=== PATIENT | female | born 1930 | race Caucasian/White ===

== ENCOUNTER 2016-03-11 13:35 | Inpatient (IN) | payer OTHER ==
[~2016-03-11] VITALS: Ht 149.9 cm; Wt 60.0 kg
[~2016-03-11 13:35] MED LIST: ACID REDUCER 1150 MG PO; ACID REDUCER150 MG PO; ADVAIR HFA120 INHAL1 IH; ALBUTEROL SULF8.5 GM IH; AMLODIPINE BESY10 MG PO; AMLODIPINE BESYL5 MG PO; ANTIFUNGAL15 G1 TP; ARICEPT5 MG PO; ASPIR 8181 M1 PO; ATENOLOL50 M1 PO; ATENOLOL50 MG PO; ATORVASTATIN CA40 MG PO; AVENTYL,PAMELOR25 MG PO; Aspirin E.C. PO; BAYER CHILDREN'81 MG PO; BISAC-EVAC10 MG PR; BISACODYL5 MG PO; CIPRO250 MG PO; CYMBALTA30 MG PO; CYMBALTA60 MG PO; DIOVAN HCT 3201 EAC1 PO; DIOVAN320 MG PO; DOCUSATE SODIU100 MG PO; DONEPEZIL HCL5 MG PO; ERGOCALCIF50000 UNIT PO; FENOFIBRATE160 M1 PO; FISH OIL 1,2001 EAC4 PO; GABAPENTIN300 MG PO; GLIPIZIDE10 MG PO; GLIPIZIDE5 M1 PO; GRALISE300 MG PO; GYNE-LOTRIMIN-745 GM VG; HEPARIN SO5000 UNITS SC; HYDROCODON-ACE1 EAC7 PO; KEFLEX500 MG PO; LEVEMIR FL100 UNIT/1 SC; LEVEMIR FL100 UNITS/ SC; LIDODERM 5% P1 PATCH PO; LIDODERM 5% P1 PATCH TD; LIPITOR40 MG PO; LO-DOSE ASPIRIN81 M1 PO; LOFIBRA,TRIGLI160 MG PO; LOSARTAN POTAS100 MG PO; MAG-AL PLUS SUS30 ML PO; MEDROL DOSEPAK4 MG PO; METFORMIN HCL500 MG PO; MILK OF MAGNESI10 ML PO; MONTELUKAST SOD10 MG PO; NORTRIPTYLINE H25 MG PO; NORVASC10 MG PO; NOVOLOG PE100 UNITS/ SC; OMEGA 3-6-91200 MG PO; OMNICEF300 MG PO; PREDNISONE10 MG PO; PROAIR HFA8.5 GM IH; PROVENTIL,2.5 MG/3 M IH; RANITIDINE HCL150 M1 PO; RANITIDINE HCL150 MG PO; SENNA8.6 MG PO; SINGULAIR10 MG PO; SPIRIVA1 INHALATI IH; ST. JOSEPH ASPI81 MG PO; THEO-DUR,THEOC200 MG PO; THEOPHYLLINE A200 M1 PO; TRADJENTA5 MG PO; TYLENOL EXTRA500 MG PO; VITAMIN D250000 UNIT PO; VYTORIN 10-801 EACH PO; VYTORIN 10/81 TABLET PO
[2016-03-11 17:18] LABS: EOSINOPHIL (%) 0 % (0-5); HEMATOCRIT 31.8 % (36.0-46.0); IMMATURE GRANULOCYTE (%) 0.3 % (0.0-0.7); IMMATURE GRANULOCYTE COUNT 0.2 K/uL; MCHC 33.3 G/DL (30.0-36.0); MCV 87.1 FL (83-99); MEAN PLAT.VOLUME 11.9 uM^3 (9.5-12.4); MONOCYTE (%) 14.6 % (3-12); MONOCYTE COUNT 0.9 K/uL (0-0.8); NEUTROPHIL (%) 68.2 % (45-76); NEUTROPHIL COUNT 4.1 K/uL (1.8-6.4); PLATELET COUNT 179 K/uL (156-360); RBC DIS.WIDTH-CV 13.3 % (11.8-14.6); RBC DIS.WIDTH-SD 41.1 % (39-53); RED BLOOD COUNT 3.65 M/uL (3.80-5.20)
[2016-03-11 17:29] LABS: CHLORIDE 112 mEq/L (99-109); POTASSIUM 4.5 mEq/L (3.7-5.4); SODIUM 140 mEq/L (136-147)
[2016-03-11 17:31] LABS: GLUCOSE 105 mg/dL (70-99)
[2016-03-11 17:32] LABS: ANION GAP 13 MEQ/L (2-14)
[2016-03-11 17:33] LABS: TOTAL BILIRUBIN 0.3 mg/dL (0.0-1.0)
[2016-03-11 17:34] LABS: ALKALINE PHOSPHATASE 65 IU/L (3-129)
[2016-03-11 17:35] LABS: GFR ESTIMATE (CALCULATED) 12 mL/min/
[2016-03-11 17:36] LABS: UREA NITROGEN (BUN) 40 mg/dL (9-23)
[2016-03-11 17:43] LABS: TROP-I INTERPRETATION NEGATIVE; TROPONIN-I 0.02 ng/mL (0.0-0.30)
[2016-03-11] MEDS ORDERED: NORVASC10 MG PO (19:18)
[2016-03-11] MEDS ORDERED: ZANTAC300 MG PO (19:21)
[2016-03-11] MEDS ORDERED: THEOPHYLLINE400 MG PO (19:21)
[2016-03-11] MEDS ORDERED: VALIUM2 MG PO (19:23)
[2016-03-11] MEDS ORDERED: TESSALON PERLE100 MG PO (19:24)
[2016-03-11] MEDS ORDERED: LEVAQUIN500 MG PO (19:24)
[2016-03-11] MEDS ORDERED: BYSTOLIC10 MG PO (19:25)
[2016-03-11] MEDS ORDERED: CARDURA2 M1 PO (19:25)
[2016-03-11] MEDS ORDERED: PRILOSEC20 MG PO (19:25)
[2016-03-11] MEDS ORDERED: PROVENTIL,2.5 MG/3 M IH (19:26)
[2016-03-11] MEDS ORDERED: VOLTAREN 1% GE100 GM TP (19:26)
[2016-03-11] MEDS ORDERED: MEDROL DOSEPAK4 MG PO (19:30)
[2016-03-11 21:54] LABS: POINT-OF-CARE METER ID UU13113700
[2016-03-11 22:04] VITALS: BP 175/77
[2016-03-11 22:07] VITALS: BP 175/77
[2016-03-12] VITALS (7 sets, daily range): BP systolic 141–177; BP diastolic 63–87
[2016-03-12 04:36] LABS: ADD MIUA? YES; BILIRUBIN NEGATIVE; BLOOD SMALL; COLOR YELLOW ((YELLOW)); GLUCOSE (STRIP) NEGATIVE; KETONES NEGATIVE; LEUKOCYTES NEGATIVE; NITRITE NEGATIVE; PH, URINE 6.5 (5-8); PROTEIN (STRIP) >=300; SPECIFIC GRAVITY 1.011 (1.000-1.030); UROBILINOGEN 0.2 MG/DL (0.2-1.0)
[2016-03-12 05:08] LABS: BACTERIA NONE SEEN; CASTS NONE SEEN /LPF; CRYSTALS NONE SEEN; EPITHELIAL CELLS RARE; MUCUS NONE SEEN; RED BLOOD CELLS RARE /HPF (0-5); UCUL ADDED? NO; WHITE BLOOD CELLS RARE /HPF (0-5)
[2016-03-12 10:20] LABS: ANION GAP 15 MEQ/L (2-14); CHLORIDE 113 MEQ/L (99-109); GFR ESTIMATE (CALCULATED) 15 mL/min/; GLUCOSE 113 mg/dL (70-99); POTASSIUM 4.3 MEQ/L (3.7-5.4); SAMPLE HEMOLYSIS CHECK 0; SAMPLE ICTERIC CHECK 0; SAMPLE LIPEMIA CHECK 0; SODIUM 145 MEQ/L (136-147); UREA NITROGEN (BUN) 35 mg/dL (9-23)
[2016-03-12 23:28] LABS: INFLUENZA A VIRAL ANTIGEN NEGATIVE; INFLUENZA B VIRAL ANTIGEN NEGATIVE
[2016-03-13 03:32] VITALS: BP 174/74
[2016-03-13 06:55] LABS: POINT-OF-CARE METER ID UU13113700
[2016-03-13 07:32] VITALS: BP 154/69
[2016-03-13 12:13] VITALS: BP 142/96
[2016-03-13 15:59] VITALS: BP 125/87
[2016-03-13 20:12] VITALS: BP 166/73
[2016-03-13 21:29] LABS: POINT-OF-CARE METER ID UU13113831
[2016-03-14 00:46] VITALS: BP 171/72
[2016-03-14 04:38] VITALS: BP 174/80
[2016-03-14 06:29] LABS: EOSINOPHIL (%) 0 % (0-5); HEMATOCRIT 28.2 % (36.0-46.0); IMMATURE GRANULOCYTE (%) 0.7 % (0.0-0.7); LYMPHOCYTE COUNT 0.7 K/uL (1.0-2.8); MCH 29.2 PG (29.0-34.0); MCHC 33.7 G/DL (30.0-36.0); MCV 86.8 FL (83-99); MEAN PLAT.VOLUME 11.8 uM^3 (9.5-12.4); MONOCYTE (%) 4.3 % (3-12); MONOCYTE COUNT 0.2 K/uL (0-0.8); NEUTROPHIL (%) 79.7 % (45-76); NEUTROPHIL COUNT 3.5 K/uL (1.8-6.4); PLATELET COUNT 143 K/uL (156-360); RBC DIS.WIDTH-CV 13.5 % (11.8-14.6); RBC DIS.WIDTH-SD 43.2 % (39-53); RED BLOOD COUNT 3.25 M/uL (3.80-5.20); WHITE BLOOD COUNT 4.4 K/uL (4.1-10.2)
[2016-03-14 06:57] LABS: ANION GAP 9 MEQ/L (2-14); CHLORIDE 111 MEQ/L (99-109); GFR ESTIMATE (CALCULATED) 13 mL/min/; GLUCOSE 189 mg/dL (70-99); POTASSIUM 4.4 MEQ/L (3.7-5.4); SAMPLE HEMOLYSIS CHECK 0; SAMPLE ICTERIC CHECK 0; SAMPLE LIPEMIA CHECK 0; SODIUM 138 MEQ/L (136-147); UREA NITROGEN (BUN) 48 mg/dL (9-23)
[2016-03-14 07:30] LABS: POINT-OF-CARE METER ID UU14162513
[2016-03-14 08:17] VITALS: BP 132/100
[2016-03-14 12:43] VITALS: BP 158/72
[2016-03-14 12:45] LABS: POINT-OF-CARE METER ID UU14162513
[2016-03-14 16:06] VITALS: BP 118/75
[2016-03-14 17:30] LABS: POINT-OF-CARE METER ID UU14162513
[2016-03-14 20:00] VITALS: BP 138/61
[2016-03-14 22:07] LABS: POINT-OF-CARE METER ID UU13113700
[2016-03-15] VITALS (7 sets, daily range): BP systolic 122–174; BP diastolic 63–80
[2016-03-15 06:13] LABS: ANION GAP 10 MEQ/L (2-14); CHLORIDE 109 MEQ/L (99-109); GFR ESTIMATE (CALCULATED) 12 mL/min/; GLUCOSE 211 mg/dL (70-99); POTASSIUM 4.5 MEQ/L (3.7-5.4); SAMPLE HEMOLYSIS CHECK 0; SAMPLE ICTERIC CHECK 0; SAMPLE LIPEMIA CHECK 0; SODIUM 136 MEQ/L (136-147); UREA NITROGEN (BUN) 56 mg/dL (9-23)
[2016-03-15 07:34] LABS: POINT-OF-CARE METER ID UU13113831
[2016-03-15 12:17] LABS: POINT-OF-CARE METER ID UU13113831
[2016-03-15 12:34] LABS: POINT-OF-CARE METER ID UU14162513
[2016-03-15 17:54] LABS: POINT-OF-CARE METER ID UU14162513
[2016-03-15 22:16] LABS: POINT-OF-CARE METER ID UU13113700
[2016-03-16] VITALS: BP 156/69
[2016-03-16 05:00] VITALS: BP 170/81
[2016-03-16 06:45] LABS: ANION GAP 8 MEQ/L (2-14); CHLORIDE 111 MEQ/L (99-109); GFR ESTIMATE (CALCULATED) 13 mL/min/; GLUCOSE 197 mg/dL (70-99); POTASSIUM 4.6 MEQ/L (3.7-5.4); SAMPLE HEMOLYSIS CHECK 0; SAMPLE ICTERIC CHECK 0; SAMPLE LIPEMIA CHECK 0; SODIUM 136 MEQ/L (136-147); UREA NITROGEN (BUN) 65 mg/dL (9-23)
[2016-03-16 07:36] LABS: POINT-OF-CARE METER ID UU13113831
[2016-03-16 08:20] VITALS: BP 158/70
[2016-03-16 12:52] LABS: POINT-OF-CARE METER ID UU14162513
[2016-03-16 13:09] VITALS: BP 158/73; BP 170/72
[2016-03-16 16:42] VITALS: BP 156/100
[2016-03-16 17:38] LABS: POINT-OF-CARE METER ID UU13113831
[2016-03-16 20:12] VITALS: BP 160/74
[2016-03-16 21:17] LABS: POINT-OF-CARE METER ID UU14162513
[2016-03-17] VITALS: BP 153/67
[2016-03-17 03:50] VITALS: BP 144/80
[2016-03-17 06:41] LABS: ANION GAP 11 MEQ/L (2-14); CHLORIDE 111 MEQ/L (99-109); GFR ESTIMATE (CALCULATED) 14 mL/min/; GLUCOSE 246 mg/dL (70-99); POTASSIUM 4.9 MEQ/L (3.7-5.4); SAMPLE HEMOLYSIS CHECK 0; SAMPLE ICTERIC CHECK 0; SAMPLE LIPEMIA CHECK 0; SODIUM 138 MEQ/L (136-147); UREA NITROGEN (BUN) 68 mg/dL (9-23)
[2016-03-17 08:14] VITALS: BP 151/55
[2016-03-17 11:41] VITALS: BP 145/66
[2016-03-17] MEDS ORDERED: PREDNISONE10 MG PO ×2 (13:08)
[2016-03-17] MEDS ORDERED: CEFTIN500 MG PO (13:09)
[2016-03-17 15:30] VITALS: BP 133/63
[2016-03-17 17:44] LABS: POINT-OF-CARE METER ID UU14162513
== END 2016-03-17 18:27 | disposition home or self-care (01) | DRG 683 ==
LOC: EME 13:35 → EDOF 19:15 → 5WEST 19:15 → EDOF 19:15 → 5WEST 21:05
PROVIDERS: Emergency Medicine; Hospitalist; Internal Medicine; Physician Assistant
DX: N17.9 Acute kidney failure, unspecified (principal); J20.9 Acute bronchitis, unspecified; J44.0 Chronic obstructive pulmonary disease with (acute) lower respiratory infection; J44.1 Chronic obstructive pulmonary disease with (acute) exacerbation; I27.2 Other secondary pulmonary hypertension; E11.22 Type 2 diabetes mellitus with diabetic chronic kidney disease; E86.0 Dehydration; R56.9 Unspecified convulsions; I12.9 Hypertensive chronic kidney disease with stage 1 through stage 4 chronic kidney disease, or unspecified chronic kidney disease; D63.1 Anemia in chronic kidney disease; N18.5 Chronic kidney disease, stage 5; I25.10 Atherosclerotic heart disease of native coronary artery without angina pectoris; E78.5 Hyperlipidemia, unspecified; F03.90 Unspecified dementia, unspecified severity, without behavioral disturbance, psychotic disturbance, mood disturbance, and anxiety; G47.30 Sleep apnea, unspecified; E66.9 Obesity, unspecified; K21.9 Gastro-esophageal reflux disease without esophagitis; I34.0 Nonrheumatic mitral (valve) insufficiency; Z86.73 Personal history of transient ischemic attack (TIA), and cerebral infarction without residual deficits; Z90.49 Acquired absence of other specified parts of digestive tract; Z95.2 Presence of prosthetic heart valve; Z95.1 Presence of aortocoronary bypass graft; I25.2 Old myocardial infarction
CPT/HCPCS: 71010; 71250; 74000; 80048; 80053; 80069; 80198; 81003; 82948; 83605; 84484; 85025; 87502; 94640; 94640 76; 94664; 94760; 97530 GP; 99202; 99281; 99284; G0378; G8978 GP CJ; G8979 GP CI; G8987 GO CJ; G8988 CI; G8989 GO CI; J0696; J1644; J1815; J2060; J2920; J7030; J7050; J7509; J7512

== ENCOUNTER 2016-05-30 05:39 | Day surgery (SDC) | payer OTHER ==
[~2016-05-30] VITALS: Ht 149.9 cm; Wt 55.8 kg
[~2016-05-30 05:39] MED LIST changes: +BYSTOLIC10 MG PO; +CARDURA2 M1 PO; +CEFTIN500 MG PO; +FUROSEMIDE40 MG PO; +LEVAQUIN500 MG PO; +PRILOSEC20 MG PO; +TESSALON PERLE100 MG PO; +THEOPHYLLINE400 MG PO; +VALIUM2 MG PO; +VOLTAREN 1% GE100 GM TP; +ZANTAC300 MG PO
[2016-05-30 06:00] VITALS: BP 180/63
[2016-05-30 06:42] LABS: HEMATOCRIT 35.4 % (36.0-46.0); MCH 28.4 PG (29.0-34.0); MCHC 31.6 G/DL (30.0-36.0); MCV 89.8 FL (83-99); PLATELET COUNT 200 K/uL (156-360); RBC DIS.WIDTH-CV 13.9 % (11.8-14.6); RBC DIS.WIDTH-SD 45.5 % (39-53); RED BLOOD COUNT 3.94 M/uL (3.80-5.20); WHITE BLOOD COUNT 8.4 K/uL (4.1-10.2)
[2016-05-30 07:07] LABS: ANION GAP 12 MEQ/L (2-14); CHLORIDE 106 MEQ/L (99-109); SAMPLE HEMOLYSIS CHECK 1; SAMPLE ICTERIC CHECK 0; SAMPLE LIPEMIA CHECK 0; SODIUM 142 MEQ/L (136-147)
[2016-05-30 07:13] LABS: GFR ESTIMATE (CALCULATED) 16 mL/min/; GLUCOSE 130 mg/dL (70-99); UREA NITROGEN (BUN) 29 mg/dL (9-23)
[2016-05-30 09:24] LABS: POINT-OF-CARE USER ID 515036437
[2016-05-30 09:50] VITALS: BP 152/61
[2016-05-30 11:00] VITALS: BP 132/70
== END 2016-05-30 11:20 | disposition home or self-care (01) ==
LOC: SDC 05:39
PROVIDERS: Surgery
PROC: 03180JD Bypass Left Brachial Artery to Upper Arm Vein with Synthetic Substitute, Open Approach (ICD-10-PCS; principal; 2016-05-30)
DX: I12.0 Hypertensive chronic kidney disease with stage 5 chronic kidney disease or end stage renal disease (principal); N18.6 End stage renal disease; Z99.2 Dependence on renal dialysis; J45.909 Unspecified asthma, uncomplicated; M19.90 Unspecified osteoarthritis, unspecified site; J44.9 Chronic obstructive pulmonary disease, unspecified; E78.5 Hyperlipidemia, unspecified; Z86.73 Personal history of transient ischemic attack (TIA), and cerebral infarction without residual deficits; Z95.2 Presence of prosthetic heart valve; Z98.1 Arthrodesis status; Z83.3 Family history of diabetes mellitus; Z82.49 Family history of ischemic heart disease and other diseases of the circulatory system; Z87.891 Personal history of nicotine dependence
CPT/HCPCS: 80048; 82948; 85027; 93005; J0131; J0690; J1644; J2405; J2720

== ENCOUNTER 2016-06-08 21:00 | Inpatient (IN) | payer OTHER ==
[~2016-06-08] VITALS: Ht 147.3 cm; Wt 45.3 kg
[2016-06-08 21:57] LABS: HEMATOCRIT 31.7 % (36.0-46.0); MCH 28.9 PG (29.0-34.0); MCHC 31.5 G/DL (30.0-36.0); MCV 91.6 FL (83-99); MEAN PLAT.VOLUME 11.5 uM^3 (9.5-12.4); PLATELET COUNT 230 K/uL (156-360); RBC DIS.WIDTH-CV 14.1 % (11.8-14.6); RBC DIS.WIDTH-SD 47.8 % (39-53); RED BLOOD COUNT 3.46 M/uL (3.80-5.20)
[2016-06-08 22:08] LABS: CHLORIDE 111 mEq/L (99-109); POTASSIUM 5.9 mEq/L (3.7-5.4); SODIUM 140 mEq/L (136-147)
[2016-06-08 22:09] LABS: INTER. NORMALIZED RATIO 1.1; PROTHROMBIN TIME 10.7 (9.2-11.2); PTT 26.3 (25-32)
[2016-06-08 22:10] LABS: GLUCOSE 99 mg/dL (70-99)
[2016-06-08 22:11] LABS: ANION GAP 10 MEQ/L (2-14)
[2016-06-08 22:14] LABS: GFR ESTIMATE (CALCULATED) 13 mL/min/
[2016-06-08 22:15] LABS: UREA NITROGEN (BUN) 46 mg/dL (9-23)
[2016-06-08 22:18] LABS: TROP-I INTERPRETATION NEGATIVE; TROPONIN-I 0.02 ng/mL (0.0-0.30)
[2016-06-08] MEDS ORDERED: HYDROCODON-ACE1 EAC7 PO (23:19)
[2016-06-09] VITALS (7 sets, daily range): BP systolic 121–194; BP diastolic 54–84
[2016-06-09 07:26] LABS: MCH 28.6 PG (29.0-34.0); MCHC 31.1 G/DL (30.0-36.0); MCV 92.1 FL (83-99); MEAN PLAT.VOLUME 11.6 uM^3 (9.5-12.4); PLATELET COUNT 206 K/uL (156-360); RBC DIS.WIDTH-CV 14.3 % (11.8-14.6); RBC DIS.WIDTH-SD 48.2 % (39-53); RED BLOOD COUNT 3.04 M/uL (3.80-5.20); WHITE BLOOD COUNT 8.5 K/uL (4.1-10.2)
[2016-06-09 07:31] LABS: ANION GAP 10 MEQ/L (2-14); CHLORIDE 111 MEQ/L (99-109); GFR ESTIMATE (CALCULATED) 13 mL/min/; GLUCOSE 103 mg/dL (70-99); POTASSIUM 5.4 MEQ/L (3.7-5.4); SAMPLE HEMOLYSIS CHECK 0; SAMPLE ICTERIC CHECK 0; SAMPLE LIPEMIA CHECK 0; SODIUM 142 MEQ/L (136-147); UREA NITROGEN (BUN) 45 mg/dL (9-23)
[2016-06-09 07:32] LABS: TROP-I INTERPRETATION NEGATIVE; TROPONIN-I 0.02 ng/mL (0.0-0.30)
[2016-06-09 10:40] LABS: IRON 46 MCG/DL (35-150)
[2016-06-09 10:42] LABS: IMM.RETIC FRACTION 14.2 % (3-19); RETIC HGB EQUIVALENT 32.7 (28-36); RETICULOCYTE COUNT 1.5 % (0.5-1.8)
[2016-06-09 11:20] LABS: FERRITIN 77 NG/ML (10-291)
[2016-06-09 12:43] LABS: TROP-I INTERPRETATION NEGATIVE; TROPONIN-I 0.02 ng/mL (0.0-0.30)
[2016-06-09 14:02] LABS: BASE EXCESS -2.4 mEq/L (-3 to +3); BICARBONATE 21.1 mEq/L (22-26); CARBOXY HGB 1.6 % (0-5); COMMENTS - BLOOD GASES A+C+; METHEMOGLOBIN 1.6 % (0-1.5); PCO2 31 mm Hg (35-45); PO2 75 mm Hg (80-100); SITE RR; pH 7.44 (7.35-7.45)
[2016-06-09 14:03] LABS: DEVICE NC; O2 FLOW 2 L/MIN; TOTAL RESP RATE 26 resp/min
[2016-06-09 21:46] LABS: POINT-OF-CARE METER ID UU13113698
[2016-06-10 00:53] VITALS: BP 165/75
[2016-06-10 04:39] VITALS: BP 162/88
[2016-06-10 06:06] LABS: EOSINOPHIL (%) 0.2 % (0-5); HEMATOCRIT 29.6 % (36.0-46.0); IMMATURE GRANULOCYTE (%) 0.5 % (0.0-0.7); INSTRUMENT ABS NEUTROPHIL CT 5.5 K/uL; LYMPHOCYTE COUNT 0.8 K/uL (1.0-2.8); MCH 28.5 PG (29.0-34.0); MCHC 31.8 G/DL (30.0-36.0); MCV 89.7 FL (83-99); MEAN PLAT.VOLUME 11.6 uM^3 (9.5-12.4); MONOCYTE (%) 3.1 % (3-12); MONOCYTE COUNT 0.2 K/uL (0-0.8); NEUTROPHIL (%) 84.3 % (45-76); NEUTROPHIL COUNT 5.5 K/uL (1.8-6.4); PLATELET COUNT 199 K/uL (156-360); RBC DIS.WIDTH-CV 13.9 % (11.8-14.6); RBC DIS.WIDTH-SD 45.4 % (39-53); WHITE BLOOD COUNT 6.5 K/uL (4.1-10.2)
[2016-06-10 06:58] LABS: ANION GAP 12 MEQ/L (2-14); CHLORIDE 106 MEQ/L (99-109); GFR ESTIMATE (CALCULATED) 11 mL/min/; POTASSIUM 5.3 MEQ/L (3.7-5.4); SAMPLE HEMOLYSIS CHECK 0; SAMPLE ICTERIC CHECK 0; SAMPLE LIPEMIA CHECK 0; SODIUM 139 MEQ/L (136-147); THEOPHYLLINE 5.9 MCG/ML (10-20); UREA NITROGEN (BUN) 52 mg/dL (9-23)
[2016-06-10 07:00] LABS: GLUCOSE 177 mg/dL (70-99)
[2016-06-10 07:47] VITALS: BP 139/61
[2016-06-10 11:41] VITALS: BP 159/70
[2016-06-10 15:47] VITALS: BP 155/73
[2016-06-10 19:50] VITALS: BP 166/70
[2016-06-10 21:59] LABS: POINT-OF-CARE METER ID UU13113698
[2016-06-11] VITALS (7 sets, daily range): BP systolic 128–155; BP diastolic 59–75
[2016-06-11 07:38] LABS: ANION GAP 15 MEQ/L (2-14); CHLORIDE 103 MEQ/L (99-109); GFR ESTIMATE (CALCULATED) 9 mL/min/; GLUCOSE 165 mg/dL (70-99); POTASSIUM 5.2 MEQ/L (3.7-5.4); SAMPLE HEMOLYSIS CHECK 0; SAMPLE ICTERIC CHECK 0; SAMPLE LIPEMIA CHECK 0; SODIUM 137 MEQ/L (136-147); UREA NITROGEN (BUN) 69 mg/dL (9-23)
[2016-06-11 07:45] LABS: HEMATOCRIT 29.3 % (36.0-46.0); MCH 28.6 PG (29.0-34.0); MCHC 31.7 G/DL (30.0-36.0); MCV 90.2 FL (83-99); MEAN PLAT.VOLUME 11.5 uM^3 (9.5-12.4); PLATELET COUNT 220 K/uL (156-360); RBC DIS.WIDTH-SD 46.1 % (39-53); RED BLOOD COUNT 3.25 M/uL (3.80-5.20)
[2016-06-11 07:51] LABS: WHITE BLOOD COUNT 9.8 K/uL (4.1-10.2)
[2016-06-11 08:13] LABS: POINT-OF-CARE METER ID UU13113807
[2016-06-11 13:16] LABS: POINT-OF-CARE METER ID UU13113807
[2016-06-11 16:45] LABS: POINT-OF-CARE METER ID UU13113698
[2016-06-11 21:52] LABS: POINT-OF-CARE METER ID UU13113807
[2016-06-12 03:30] VITALS: BP 142/75
[2016-06-12 06:17] LABS: HEMATOCRIT 27.4 % (36.0-46.0); MCH 28.7 PG (29.0-34.0); MCHC 32.1 G/DL (30.0-36.0); MCV 89.3 FL (83-99); MEAN PLAT.VOLUME 11.6 uM^3 (9.5-12.4); PLATELET COUNT 203 K/uL (156-360); RBC DIS.WIDTH-SD 45.3 % (39-53); RED BLOOD COUNT 3.07 M/uL (3.80-5.20); WHITE BLOOD COUNT 12.7 K/uL (4.1-10.2)
[2016-06-12 06:43] LABS: ANION GAP 14 MEQ/L (2-14); CHLORIDE 104 MEQ/L (99-109); GFR ESTIMATE (CALCULATED) 8 mL/min/; GLUCOSE 163 mg/dL (70-99); POTASSIUM 5.1 MEQ/L (3.7-5.4); SAMPLE HEMOLYSIS CHECK 0; SAMPLE ICTERIC CHECK 0; SAMPLE LIPEMIA CHECK 0; SODIUM 138 MEQ/L (136-147); UREA NITROGEN (BUN) 81 mg/dL (9-23)
[2016-06-12 08:15] VITALS: BP 136/62
[2016-06-12 08:44] LABS: POINT-OF-CARE METER ID UU13113698
[2016-06-12 11:51] VITALS: BP 130/60
[2016-06-12 12:33] LABS: POINT-OF-CARE METER ID UU13113698
[2016-06-12 15:44] VITALS: BP 149/68
[2016-06-12 16:37] LABS: POINT-OF-CARE METER ID UU13113698
[2016-06-12 19:52] VITALS: BP 127/61
[2016-06-12 21:36] LABS: POINT-OF-CARE METER ID UU14149396
[2016-06-13 00:57] VITALS: BP 148/67
[2016-06-13 04:53] VITALS: BP 146/65
[2016-06-13 07:10] LABS: EOSINOPHIL (%) 0 % (0-5); HEMATOCRIT 25.7 % (36.0-46.0); IMMATURE GRANULOCYTE (%) 2.8 % (0.0-0.7); IMMATURE GRANULOCYTE COUNT 0.2 K/uL; INSTRUMENT ABS NEUTROPHIL CT 4.8 K/uL; LYMPHOCYTE COUNT 0.8 K/uL (1.0-2.8); MCH 29.1 PG (29.0-34.0); MCHC 32.7 G/DL (30.0-36.0); MCV 88.9 FL (83-99); MEAN PLAT.VOLUME 11.5 uM^3 (9.5-12.4); MONOCYTE (%) 11.7 % (3-12); MONOCYTE COUNT 0.8 K/uL (0-0.8); NEUTROPHIL (%) 72.9 % (45-76); NEUTROPHIL COUNT 4.8 K/uL (1.8-6.4); PLATELET COUNT 178 K/uL (156-360); RBC DIS.WIDTH-CV 13.8 % (11.8-14.6); RBC DIS.WIDTH-SD 44.9 % (39-53); RED BLOOD COUNT 2.89 M/uL (3.80-5.20)
[2016-06-13 07:11] LABS: WHITE BLOOD COUNT 6.5 K/uL (4.1-10.2)
[2016-06-13 07:16] LABS: ANION GAP 14 MEQ/L (2-14); CHLORIDE 104 MEQ/L (99-109); GFR ESTIMATE (CALCULATED) 9 mL/min/; GLUCOSE 203 mg/dL (70-99); POTASSIUM 4.4 MEQ/L (3.7-5.4); SAMPLE HEMOLYSIS CHECK 0; SAMPLE ICTERIC CHECK 0; SAMPLE LIPEMIA CHECK 0; SODIUM 137 MEQ/L (136-147); UREA NITROGEN (BUN) 87 mg/dL (9-23)
[2016-06-13 08:32] VITALS: BP 130/58
[2016-06-13] MEDS ORDERED: NABI650T PO (09:17)
[2016-06-13] MEDS ORDERED: JANUVIA25 MG PO ×2 (09:17→09:25)
[2016-06-13] MEDS ORDERED: PREDNISONE20 MG PO (09:25)
[2016-06-13 12:00] LABS: POINT-OF-CARE METER ID UU13113698
[2016-06-13 12:12] VITALS: BP 136/61
== END 2016-06-13 14:45 | disposition home health service (06) | DRG 291 ==
LOC: EME 21:00 → EDOF 06-09 00:44 → 5WEST 06-09 01:35 → 4SOUTH 06-09 10:25 → 5WEST 06-09 10:25 → 4SOUTH 06-09 19:25
PROVIDERS: Emergency Medicine; Family Medicine; Hospitalist; Internal Medicine; Internal Medicine Nephrology; Nurse Practitioner Family
DX: I13.2 Hypertensive heart and chronic kidney disease with heart failure and with stage 5 chronic kidney disease, or end stage renal disease (principal); I50.33 Acute on chronic diastolic (congestive) heart failure; E11.22 Type 2 diabetes mellitus with diabetic chronic kidney disease; E11.21 Type 2 diabetes mellitus with diabetic nephropathy; N18.5 Chronic kidney disease, stage 5; N17.9 Acute kidney failure, unspecified; J44.1 Chronic obstructive pulmonary disease with (acute) exacerbation; J44.0 Chronic obstructive pulmonary disease with (acute) lower respiratory infection; J20.9 Acute bronchitis, unspecified; E87.2 Acidosis; N25.81 Secondary hyperparathyroidism of renal origin; E78.5 Hyperlipidemia, unspecified; I25.10 Atherosclerotic heart disease of native coronary artery without angina pectoris; I27.2 Other secondary pulmonary hypertension; G47.33 Obstructive sleep apnea (adult) (pediatric); I36.1 Nonrheumatic tricuspid (valve) insufficiency; I34.0 Nonrheumatic mitral (valve) insufficiency; E87.5 Hyperkalemia; D63.1 Anemia in chronic kidney disease; E55.9 Vitamin D deficiency, unspecified; F03.90 Unspecified dementia, unspecified severity, without behavioral disturbance, psychotic disturbance, mood disturbance, and anxiety; I25.2 Old myocardial infarction; Z86.73 Personal history of transient ischemic attack (TIA), and cerebral infarction without residual deficits; Z95.2 Presence of prosthetic heart valve; Z95.1 Presence of aortocoronary bypass graft; Z79.82 Long term (current) use of aspirin
CPT/HCPCS: 36600; 71010; 80048; 80069; 80198; 82272; 82607; 82728; 82746; 82803; 82948; 83540; 83605; 83880; 84466; 84484; 85025; 85027; 85045; 85610; 85730; 87040; 93005; 93306; 94640; 94640 76; 94799; 99202; 99281; 99285; J0881; J1644; J1815; J1940; J2920; J2930; J7512

== ENCOUNTER 2016-06-19 11:33 | Inpatient (IN) | payer OTHER ==
[~2016-06-19] VITALS: Ht 162.6 cm; Wt 65.5 kg
[~2016-06-19 11:33] MED LIST changes: +JANUVIA25 MG PO; +NABI650T PO; +PREDNISONE20 MG PO
[2016-06-19 12:50] LABS: EOSINOPHIL (%) 3.4 % (0-5); EOSINOPHIL COUNT 0.5 K/uL (0-0.3); HEMATOCRIT 31.1 % (36.0-46.0); IMMATURE GRANULOCYTE (%) 3.2 % (0.0-0.7); IMMATURE GRANULOCYTE COUNT 0.4 K/uL; INSTRUMENT ABS NEUTROPHIL CT 9.5 K/uL; MCH 29.3 PG (29.0-34.0); MCHC 32.2 G/DL (30.0-36.0); MCV 91.2 FL (83-99); MEAN PLAT.VOLUME 11.7 uM^3 (9.5-12.4); MONOCYTE (%) 9.4 % (3-12); MONOCYTE COUNT 1.3 K/uL (0-0.8); NEUTROPHIL (%) 69.6 % (45-76); NEUTROPHIL COUNT 9.5 K/uL (1.8-6.4); PLATELET COUNT 260 K/uL (156-360); RBC DIS.WIDTH-CV 14.9 % (11.8-14.6); RBC DIS.WIDTH-SD 47.4 % (39-53); RED BLOOD COUNT 3.41 M/uL (3.80-5.20); WHITE BLOOD COUNT 13.7 K/uL (4.1-10.2)
[2016-06-19 12:56] LABS: CHLORIDE 106 mEq/L (99-109); POTASSIUM 5.5 mEq/L (3.7-5.4); SODIUM 135 mEq/L (136-147)
[2016-06-19 12:58] LABS: GLUCOSE 121 mg/dL (70-99); INTER. NORMALIZED RATIO 1.2; PROTHROMBIN TIME 12.3 (9.2-11.2); PTT 23.9 (25-32)
[2016-06-19 13:00] LABS: ANION GAP 9 MEQ/L (2-14); TOTAL BILIRUBIN 0.4 mg/dL (0.0-1.0)
[2016-06-19 13:02] LABS: ALKALINE PHOSPHATASE 60 IU/L (3-129); GFR ESTIMATE (CALCULATED) 11 mL/min/
[2016-06-19 13:03] LABS: UREA NITROGEN (BUN) 96 mg/dL (9-23)
[2016-06-19 13:04] LABS: TROP-I INTERPRETATION NEGATIVE; TROPONIN-I 0.04 ng/mL (0.0-0.30)
[2016-06-19] MEDS ORDERED: LOSARTAN POTAS100 MG PO (13:45)
[2016-06-19 18:06] LABS: HEMATOCRIT 28.6 % (36.0-46.0); MCHC 32.9 G/DL (30.0-36.0); MCV 88.3 FL (83-99); MEAN PLAT.VOLUME 11.3 uM^3 (9.5-12.4); PLATELET COUNT 234 K/uL (156-360); RBC DIS.WIDTH-SD 46.5 % (39-53); RED BLOOD COUNT 3.24 M/uL (3.80-5.20); WHITE BLOOD COUNT 12.4 K/uL (4.1-10.2)
[2016-06-19 18:17] LABS: ANION GAP 9 MEQ/L (2-14); CHLORIDE 107 MEQ/L (99-109); SAMPLE HEMOLYSIS CHECK 0; SAMPLE ICTERIC CHECK 0; SAMPLE LIPEMIA CHECK 0; SODIUM 139 MEQ/L (136-147)
[2016-06-19 18:19] LABS: POTASSIUM 4.2 MEQ/L (3.7-5.4)
[2016-06-19 18:20] VITALS: BP 166/54
[2016-06-19 18:23] LABS: GLUCOSE 131 mg/dL (70-99); UREA NITROGEN (BUN) 56 mg/dL (9-23)
[2016-06-19 18:24] LABS: GFR ESTIMATE (CALCULATED) 20 mL/min/
[2016-06-19 18:25] LABS: TROP-I INTERPRETATION NEGATIVE; TROPONIN-I 0.05 ng/mL (0.0-0.30)
[2016-06-19 19:00] VITALS: BP 166/54
[2016-06-19 22:06] LABS: POINT-OF-CARE METER ID UU14174216
[2016-06-19 23:47] LABS: ADD MIUA? YES; BILIRUBIN NEGATIVE; BLOOD NEGATIVE; COLOR YELLOW ((YELLOW)); GLUCOSE (STRIP) 50; KETONES NEGATIVE; LEUKOCYTES LARGE; NITRITE NEGATIVE; PROTEIN (STRIP) >=500; SPECIFIC GRAVITY 1.009 (1.000-1.030); UROBILINOGEN 0.2 MG/DL (0.2-1.0)
[2016-06-19 23:55] VITALS: BP 138/63
[2016-06-19 23:59] LABS: BACTERIA RARE /HPF; EPITHELIAL CELLS NONE SEEN /HPF; HYALINE CASTS 0-5 /LPF; MUCUS TRACE /LPF; RED BLOOD CELLS 0-5 /HPF (0-5); UCUL ADDED? YES; WHITE BLOOD CELLS TNTC /HPF (0-5); WHITE BLOOD CELLS CLUMP MOD /HPF (0-5)
[2016-06-20 04:00] VITALS: BP 123/56
[2016-06-20 07:16] LABS: ANION GAP 10 MEQ/L (2-14); CHLORIDE 107 MEQ/L (99-109); GLUCOSE 133 mg/dL (70-99); POTASSIUM 4.8 MEQ/L (3.7-5.4); SAMPLE HEMOLYSIS CHECK 0; SAMPLE ICTERIC CHECK 0; SAMPLE LIPEMIA CHECK 0; SODIUM 139 MEQ/L (136-147); UREA NITROGEN (BUN) 67 mg/dL (9-23)
[2016-06-20 07:17] LABS: GFR ESTIMATE (CALCULATED) 14 mL/min/
[2016-06-20 07:18] LABS: EOSINOPHIL (%) 3.6 % (0-5); EOSINOPHIL COUNT 0.4 K/uL (0-0.3); HEMATOCRIT 27.6 % (36.0-46.0); IMMATURE GRANULOCYTE (%) 1.6 % (0.0-0.7); IMMATURE GRANULOCYTE COUNT 0.2 K/uL; INSTRUMENT ABS NEUTROPHIL CT 7.1 K/uL; LYMPHOCYTE COUNT 1.4 K/uL (1.0-2.8); MCH 29.1 PG (29.0-34.0); MCHC 31.5 G/DL (30.0-36.0); MEAN PLAT.VOLUME 11.6 uM^3 (9.5-12.4); MONOCYTE (%) 9.2 % (3-12); MONOCYTE COUNT 0.9 K/uL (0-0.8); NEUTROPHIL (%) 71.5 % (45-76); NEUTROPHIL COUNT 7.1 K/uL (1.8-6.4); PLATELET COUNT 196 K/uL (156-360); RBC DIS.WIDTH-CV 15.7 % (11.8-14.6); RBC DIS.WIDTH-SD 49.3 % (39-53); RED BLOOD COUNT 2.99 M/uL (3.80-5.20)
[2016-06-20 07:19] LABS: MCV 92.3 FL (83-99)
[2016-06-20 09:00] VITALS: BP 139/66
[2016-06-20 10:40] LABS: AHBS INDEX 0; HEPATITIS B SURFACE ANTIBODY Nonreactive; HPCA INDEX 0.05
[2016-06-20 10:42] LABS: ANTI-HEPATITIS A VIRUS (IGM) Nonreactive; ANTI-HEPATITIS B CORE (IGM) Nonreactive; HAV INDEX 0.16; HBC IgM INDEX 0.08
[2016-06-20 10:43] LABS: HBSG INDEX 0.22
[2016-06-20 10:44] LABS: ANTI-HEPATITIS B CORE (IGM) Nonreactive; HBC IgM INDEX 0.07
[2016-06-20 10:48] LABS: ADD MIUA? YES; BILIRUBIN NEGATIVE; BLOOD NEGATIVE; COLOR YELLOW ((YELLOW)); GLUCOSE (STRIP) 50; KETONES NEGATIVE; LEUKOCYTES LARGE; NITRITE NEGATIVE; PROTEIN (STRIP) 100; SPECIFIC GRAVITY 1.017 (1.000-1.030); UROBILINOGEN 0.2 MG/DL (0.2-1.0)
[2016-06-20 10:55] LABS: IRON 29 MCG/DL (35-150)
[2016-06-20 11:13] LABS: WHITE BLOOD CELLS TNTC /HPF (0-5)
[2016-06-20 15:01] VITALS: BP 131/61
[2016-06-20 20:00] VITALS: BP 136/69
[2016-06-20 21:39] LABS: POINT-OF-CARE METER ID UU14174216; POINT-OF-CARE USER ID ENVMNS
[2016-06-20 23:46] VITALS: BP 133/86
[2016-06-21 04:00] VITALS: BP 124/66
[2016-06-21 06:50] LABS: EOSINOPHIL (%) 3.6 % (0-5); EOSINOPHIL COUNT 0.4 K/uL (0-0.3); HEMATOCRIT 28.3 % (36.0-46.0); IMMATURE GRANULOCYTE (%) 1.6 % (0.0-0.7); IMMATURE GRANULOCYTE COUNT 0.2 K/uL; INSTRUMENT ABS NEUTROPHIL CT 7.5 K/uL; LYMPHOCYTE COUNT 1.6 K/uL (1.0-2.8); MCH 29.3 PG (29.0-34.0); MCHC 31.8 G/DL (30.0-36.0); MCV 92.2 FL (83-99); MEAN PLAT.VOLUME 12.1 uM^3 (9.5-12.4); MONOCYTE (%) 10.1 % (3-12); MONOCYTE COUNT 1.1 K/uL (0-0.8); NEUTROPHIL (%) 69.8 % (45-76); NEUTROPHIL COUNT 7.5 K/uL (1.8-6.4); NRBC (%) 0.2 /100 WBC (0-0); PLATELET COUNT 171 K/uL (156-360); RBC DIS.WIDTH-CV 15.9 % (11.8-14.6); RBC DIS.WIDTH-SD 50.4 % (39-53); RED BLOOD COUNT 3.07 M/uL (3.80-5.20); WHITE BLOOD COUNT 10.7 K/uL (4.1-10.2)
[2016-06-21 07:06] LABS: ANION GAP 9 MEQ/L (2-14); CHLORIDE 101 MEQ/L (99-109); GFR ESTIMATE (CALCULATED) 16 mL/min/; GLUCOSE 135 mg/dL (70-99); POTASSIUM 4.1 MEQ/L (3.7-5.4); SAMPLE HEMOLYSIS CHECK 0; SAMPLE ICTERIC CHECK 0; SAMPLE LIPEMIA CHECK 0; SODIUM 137 MEQ/L (136-147); UREA NITROGEN (BUN) 38 mg/dL (9-23)
[2016-06-21 07:51] LABS: POINT-OF-CARE METER ID UU14174216
[2016-06-21 11:54] LABS: POINT-OF-CARE METER ID UU14174216
[2016-06-21 13:20] LABS: BASE EXCESS 4.9 mEq/L (-3 to +3); BICARBONATE 27.6 mEq/L (22-26); CARBOXY HGB 1.7 % (0-5); COMMENTS - BLOOD GASES A+C+; METHEMOGLOBIN 1.7 % (0-1.5); PCO2 33 mm Hg (35-45); PO2 70 mm Hg (80-100); SITE RRA; pH 7.53 (7.35-7.45)
[2016-06-21 13:21] LABS: DEVICE NC; FI02 21 %; TOTAL RESP RATE 16 resp/min
[2016-06-21 15:44] VITALS: BP 161/71
[2016-06-21 20:00] VITALS: BP 171/72
[2016-06-21 22:18] LABS: POINT-OF-CARE METER ID UU14174216; POINT-OF-CARE USER ID ENVMNS
[2016-06-21 23:55] VITALS: BP 171/65
[2016-06-22 04:00] VITALS: BP 147/68
[2016-06-22 06:15] LABS: MCH 29.4 PG (29.0-34.0); MCHC 31.8 G/DL (30.0-36.0); MCV 92.4 FL (83-99); MEAN PLAT.VOLUME 11.8 uM^3 (9.5-12.4); PLATELET COUNT 150 K/uL (156-360); RBC DIS.WIDTH-CV 16.1 % (11.8-14.6); RBC DIS.WIDTH-SD 51.8 % (39-53); RED BLOOD COUNT 3.03 M/uL (3.80-5.20); WHITE BLOOD COUNT 12.5 K/uL (4.1-10.2)
[2016-06-22 07:03] LABS: ANION GAP 11 MEQ/L (2-14); CHLORIDE 105 MEQ/L (99-109); GFR ESTIMATE (CALCULATED) 14 mL/min/; GLUCOSE 127 mg/dL (70-99); POTASSIUM 3.8 MEQ/L (3.7-5.4); SAMPLE HEMOLYSIS CHECK 0; SAMPLE ICTERIC CHECK 0; SAMPLE LIPEMIA CHECK 0; SODIUM 140 MEQ/L (136-147); UREA NITROGEN (BUN) 40 mg/dL (9-23)
[2016-06-22 08:09] VITALS: BP 152/60
[2016-06-22 11:46] VITALS: BP 157/50
[2016-06-22 15:00] VITALS: BP 158/82
[2016-06-22 16:30] LABS: POINT-OF-CARE METER ID UU14174216
[2016-06-22 19:23] VITALS: BP 146/65
[2016-06-22 20:29] LABS: POINT-OF-CARE METER ID UU14174216
[2016-06-22 22:31] VITALS: BP 152/67
[2016-06-23 03:13] VITALS: BP 148/88
[2016-06-23 07:28] VITALS: BP 129/73
[2016-06-23 08:08] LABS: POINT-OF-CARE USER ID NUTSLF44
[2016-06-23 09:52] LABS: ANION GAP 12 MEQ/L (2-14); CHLORIDE 105 MEQ/L (99-109); GFR ESTIMATE (CALCULATED) 14 mL/min/; GLUCOSE 183 mg/dL (70-99); POTASSIUM 3.9 MEQ/L (3.7-5.4); SAMPLE HEMOLYSIS CHECK 0; SAMPLE ICTERIC CHECK 0; SAMPLE LIPEMIA CHECK 0; SODIUM 138 MEQ/L (136-147); UREA NITROGEN (BUN) 41 mg/dL (9-23)
[2016-06-23 12:19] LABS: POINT-OF-CARE METER ID UU14174216
[2016-06-23 12:26] VITALS: BP 145/57
[2016-06-23 16:42] LABS: POINT-OF-CARE USER ID NUTSLF44
[2016-06-23 17:30] VITALS: BP 144/60
[2016-06-23 19:16] LABS: HEMATOCRIT 27.7 % (36.0-46.0); MCH 29.3 PG (29.0-34.0); MCHC 30.3 G/DL (30.0-36.0); MCV 96.5 FL (83-99); MEAN PLAT.VOLUME 12.4 uM^3 (9.5-12.4); PLATELET COUNT 132 K/uL (156-360); RBC DIS.WIDTH-CV 16.8 % (11.8-14.6); RBC DIS.WIDTH-SD 57.5 % (39-53); RED BLOOD COUNT 2.87 M/uL (3.80-5.20); WHITE BLOOD COUNT 11.1 K/uL (4.1-10.2)
[2016-06-23 20:27] VITALS: BP 142/91
[2016-06-23 21:17] LABS: POINT-OF-CARE METER ID UU14174216
[2016-06-24 00:08] VITALS: BP 139/63
[2016-06-24 04:08] VITALS: BP 139/62
[2016-06-24 06:35] LABS: EOSINOPHIL (%) 3.6 % (0-5); EOSINOPHIL COUNT 0.4 K/uL (0-0.3); HEMATOCRIT 26.8 % (36.0-46.0); IMMATURE GRANULOCYTE COUNT 0.1 K/uL; INSTRUMENT ABS NEUTROPHIL CT 7.3 K/uL; LYMPHOCYTE COUNT 1.6 K/uL (1.0-2.8); MCH 29.4 PG (29.0-34.0); MCHC 31.7 G/DL (30.0-36.0); MCV 92.7 FL (83-99); MEAN PLAT.VOLUME 11.9 uM^3 (9.5-12.4); MONOCYTE (%) 10.5 % (3-12); MONOCYTE COUNT 1.1 K/uL (0-0.8); NEUTROPHIL (%) 69.7 % (45-76); NEUTROPHIL COUNT 7.3 K/uL (1.8-6.4); NRBC (%) 0.2 /100 WBC (0-0); PLATELET COUNT 132 K/uL (156-360); RBC DIS.WIDTH-CV 16.6 % (11.8-14.6); RBC DIS.WIDTH-SD 53.4 % (39-53); RED BLOOD COUNT 2.89 M/uL (3.80-5.20); WHITE BLOOD COUNT 10.4 K/uL (4.1-10.2)
[2016-06-24 06:48] LABS: ANION GAP 12 MEQ/L (2-14); CHLORIDE 102 MEQ/L (99-109); GFR ESTIMATE (CALCULATED) 16 mL/min/; GLUCOSE 125 mg/dL (70-99); POTASSIUM 3.7 MEQ/L (3.7-5.4); SAMPLE HEMOLYSIS CHECK 0; SAMPLE ICTERIC CHECK 0; SAMPLE LIPEMIA CHECK 0; SODIUM 140 MEQ/L (136-147); UREA NITROGEN (BUN) 23 mg/dL (9-23)
[2016-06-24 07:30] VITALS: BP 133/63
[2016-06-24 08:21] LABS: POINT-OF-CARE USER ID NUTSLF44
[2016-06-24 10:52] LABS: MAGNESIUM 1.9 mg/dl (1.3-2.7)
[2016-06-24 11:30] VITALS: BP 141/67
[2016-06-24 11:39] LABS: POINT-OF-CARE USER ID NUTSLF44
[2016-06-24 16:40] LABS: POINT-OF-CARE USER ID NUTSLF44
[2016-06-24 16:57] VITALS: BP 142/64
[2016-06-24 19:26] VITALS: BP 163/66
[2016-06-25 00:24] VITALS: BP 124/61
[2016-06-25 04:51] VITALS: BP 142/78
[2016-06-25 08:12] LABS: POINT-OF-CARE METER ID UU13113781; POINT-OF-CARE USER ID NUTSLF44
[2016-06-25 09:00] LABS: MCH 29.9 PG (29.0-34.0); MCHC 31.9 G/DL (30.0-36.0); MCV 93.5 FL (83-99); MEAN PLAT.VOLUME 11.8 uM^3 (9.5-12.4); PLATELET COUNT 123 K/uL (156-360); RBC DIS.WIDTH-CV 16.6 % (11.8-14.6); RBC DIS.WIDTH-SD 55.1 % (39-53); RED BLOOD COUNT 2.78 M/uL (3.80-5.20); WHITE BLOOD COUNT 11.7 K/uL (4.1-10.2)
[2016-06-25 09:28] LABS: ANION GAP 14 MEQ/L (2-14); CHLORIDE 102 MEQ/L (99-109); GFR ESTIMATE (CALCULATED) 13 mL/min/; POTASSIUM 3.7 MEQ/L (3.7-5.4); SAMPLE HEMOLYSIS CHECK 0; SAMPLE ICTERIC CHECK 0; SAMPLE LIPEMIA CHECK 0; SODIUM 138 MEQ/L (136-147); UREA NITROGEN (BUN) 27 mg/dL (9-23)
[2016-06-25 09:29] LABS: GLUCOSE 227 mg/dL (70-99)
[2016-06-25] MEDS ORDERED: CEFDINIR300 MG PO ×2 (12:24→14:43)
[2016-06-25 13:19] VITALS: BP 144/64
== END 2016-06-25 14:53 | disposition home health service (06) | DRG 682 ==
LOC: EME 11:33 → EDOF 13:45 → 4EAST 13:45
PROVIDERS: Emergency Medicine; Hospitalist; Internal Medicine; Internal Medicine Nephrology; Student in an Organized Health Care Education/Training Program
PROC: 5A1D60Z (ICD-10-PCS; principal; 2016-06-22)
DX: I12.0 Hypertensive chronic kidney disease with stage 5 chronic kidney disease or end stage renal disease (principal); N18.6 End stage renal disease; E11.22 Type 2 diabetes mellitus with diabetic chronic kidney disease; E87.5 Hyperkalemia; I48.0 Paroxysmal atrial fibrillation; J44.9 Chronic obstructive pulmonary disease, unspecified; E11.21 Type 2 diabetes mellitus with diabetic nephropathy; Z86.79 Personal history of other diseases of the circulatory system; D63.1 Anemia in chronic kidney disease; N39.0 Urinary tract infection, site not specified; Z95.2 Presence of prosthetic heart valve; I25.10 Atherosclerotic heart disease of native coronary artery without angina pectoris; Z95.1 Presence of aortocoronary bypass graft; F03.90 Unspecified dementia, unspecified severity, without behavioral disturbance, psychotic disturbance, mood disturbance, and anxiety; Z99.2 Dependence on renal dialysis
CPT/HCPCS: 36415; 36600; 70450; 71010; 80048; 80048 91; 80053; 80061; 80069; 80074; 81003; 82803; 82948; 83036; 83540; 83735; 84100; 84132 91; 84443; 84466; 84484; 85025; 85027; 85610; 85730; 86705; 86706; 87086; 87340; 93005; 94640; 94640 76; 94760; 99202; 99281; 99284; J0696; J0881; J1644; J1756; J1815; J7030; J7050

== ENCOUNTER 2016-08-04 16:50 | Inpatient (IN) | payer OTHER ==
[~2016-08-04] VITALS: Ht 149.9 cm; Wt 60.9 kg
[~2016-08-04 16:50] MED LIST changes: +CEFDINIR300 MG PO
[2016-08-04 17:34] LABS: BASOPHIL COUNT 0.1 K/uL (0-0.1); EOSINOPHIL (%) 4.1 % (0-5); EOSINOPHIL COUNT 0.4 K/uL (0-0.3); HEMATOCRIT 36.5 % (36.0-46.0); IMMATURE GRANULOCYTE (%) 0.5 % (0.0-0.7); LYMPHOCYTE COUNT 2.4 K/uL (1.0-2.8); MCH 30.4 PG (29.0-34.0); MCHC 32.1 G/DL (30.0-36.0); MCV 94.8 FL (83-99); MEAN PLAT.VOLUME 11.2 uM^3 (9.5-12.4); MONOCYTE (%) 10.9 % (3-12); NEUTROPHIL (%) 56.9 % (45-76); PLATELET COUNT 154 K/uL (156-360); RBC DIS.WIDTH-CV 16.6 % (11.8-14.6); RBC DIS.WIDTH-SD 57.3 % (39-53); RED BLOOD COUNT 3.85 M/uL (3.80-5.20); WHITE BLOOD COUNT 8.8 K/uL (4.1-10.2)
[2016-08-04 17:44] LABS: CHLORIDE 107 mEq/L (99-109); POTASSIUM 3.7 mEq/L (3.7-5.4); SODIUM 143 mEq/L (136-147)
[2016-08-04 17:46] LABS: GLUCOSE 71 mg/dL (70-99)
[2016-08-04 17:47] LABS: ANION GAP 11 MEQ/L (2-14)
[2016-08-04 17:49] LABS: GFR ESTIMATE (CALCULATED) 38 mL/min/
[2016-08-04 17:50] LABS: UREA NITROGEN (BUN) 11 mg/dL (9-23)
[2016-08-04 17:55] LABS: TROP-I INTERPRETATION NEGATIVE; TROPONIN-I 0.02 ng/mL (0.0-0.30)
[2016-08-04 18:40] LABS: ADD MIUA? YES; BILIRUBIN NEGATIVE; BLOOD NEGATIVE; COLOR YELLOW ((YELLOW)); GLUCOSE (STRIP) NEGATIVE; KETONES NEGATIVE; LEUKOCYTES MODERATE; NITRITE NEGATIVE; PROTEIN (STRIP) 100; SPECIFIC GRAVITY 1.006 (1.000-1.030); UROBILINOGEN 0.2 MG/DL (0.2-1.0)
[2016-08-04 18:46] LABS: BACTERIA 3+ /HPF; EPITHELIAL CELLS RARE /HPF; MUCUS NONE SEEN /LPF; RED BLOOD CELLS 0-5 /HPF (0-5); UCUL ADDED? YES; WHITE BLOOD CELLS TNTC /HPF (0-5)
[2016-08-04] MEDS ORDERED: NORVASC5 MG PO (20:07)
[2016-08-04] MEDS ORDERED: DIALYVITE 3,001 EACH PO (20:12)
[2016-08-04] MEDS ORDERED: TYLENOL EXTRA500 MG PO (20:14)
[2016-08-04] MEDS ORDERED: LIDOCAINE-PRIL1 EACH TP (20:14)
[2016-08-04 22:19] VITALS: BP 160/71
[2016-08-05 01:10] LABS: TROP-I INTERPRETATION NEGATIVE; TROPONIN-I 0.02 ng/mL (0.0-0.30)
[2016-08-05 03:59] VITALS: BP 150/66
[2016-08-05 06:48] LABS: BASOPHIL COUNT 0.1 K/uL (0-0.1); EOSINOPHIL (%) 4.1 % (0-5); EOSINOPHIL COUNT 0.4 K/uL (0-0.3); HEMATOCRIT 36.9 % (36.0-46.0); IMMATURE GRANULOCYTE (%) 0.6 % (0.0-0.7); IMMATURE GRANULOCYTE COUNT 0.1 K/uL; INSTRUMENT ABS NEUTROPHIL CT 5.1 K/uL; LYMPHOCYTE COUNT 2.1 K/uL (1.0-2.8); MCH 30.9 PG (29.0-34.0); MCV 96.6 FL (83-99); MEAN PLAT.VOLUME 11.4 uM^3 (9.5-12.4); MONOCYTE (%) 11.1 % (3-12); NEUTROPHIL (%) 58.5 % (45-76); NEUTROPHIL COUNT 5.1 K/uL (1.8-6.4); PLATELET COUNT 169 K/uL (156-360); RBC DIS.WIDTH-CV 16.7 % (11.8-14.6); RBC DIS.WIDTH-SD 58.5 % (39-53); RED BLOOD COUNT 3.82 M/uL (3.80-5.20); WHITE BLOOD COUNT 8.6 K/uL (4.1-10.2)
[2016-08-05 07:11] LABS: TROP-I INTERPRETATION NEGATIVE; TROPONIN-I 0.03 ng/mL (0.0-0.30)
[2016-08-05 07:55] LABS: ANION GAP 7 MEQ/L (2-14); CHLORIDE 106 MEQ/L (99-109); GFR ESTIMATE (CALCULATED) 20 mL/min/; GLUCOSE 85 mg/dL (70-99); POTASSIUM 4.4 MEQ/L (3.7-5.4); SAMPLE HEMOLYSIS CHECK 0; SAMPLE ICTERIC CHECK 0; SAMPLE LIPEMIA CHECK 0; SODIUM 140 MEQ/L (136-147)
[2016-08-05 07:56] LABS: UREA NITROGEN (BUN) 21 mg/dL (9-23)
[2016-08-05 08:00] VITALS: BP 164/70
[2016-08-05 12:00] VITALS: BP 160/69
[2016-08-05 12:15] LABS: POINT-OF-CARE METER ID UU14162508
[2016-08-05 17:02] LABS: POINT-OF-CARE METER ID UU14162508
[2016-08-05 20:00] VITALS: BP 164/63
[2016-08-06 00:27] VITALS: BP 174/76
[2016-08-06 04:05] VITALS: BP 172/79
[2016-08-06 06:48] LABS: BASOPHIL COUNT 0.1 K/uL (0-0.1); EOSINOPHIL (%) 3.8 % (0-5); EOSINOPHIL COUNT 0.3 K/uL (0-0.3); HEMATOCRIT 40.6 % (36.0-46.0); IMMATURE GRANULOCYTE (%) 0.3 % (0.0-0.7); INSTRUMENT ABS NEUTROPHIL CT 5.2 K/uL; LYMPHOCYTE COUNT 2.3 K/uL (1.0-2.8); MCH 30.3 PG (29.0-34.0); MCHC 31.5 G/DL (30.0-36.0); MCV 96.2 FL (83-99); MEAN PLAT.VOLUME 11.3 uM^3 (9.5-12.4); MONOCYTE (%) 11.4 % (3-12); NEUTROPHIL (%) 58.1 % (45-76); NEUTROPHIL COUNT 5.2 K/uL (1.8-6.4); PLATELET COUNT 165 K/uL (156-360); RBC DIS.WIDTH-CV 16.4 % (11.8-14.6); RED BLOOD COUNT 4.22 M/uL (3.80-5.20)
[2016-08-06 07:10] VITALS: BP 163/72
[2016-08-06 07:30] LABS: ANION GAP 14 MEQ/L (2-14); CHLORIDE 106 MEQ/L (99-109); GFR ESTIMATE (CALCULATED) 14 mL/min/; POTASSIUM 4.6 MEQ/L (3.7-5.4); SAMPLE HEMOLYSIS CHECK 0; SAMPLE ICTERIC CHECK 0; SAMPLE LIPEMIA CHECK 0; SODIUM 141 MEQ/L (136-147)
[2016-08-06 07:31] LABS: GLUCOSE 118 mg/dL (70-99); UREA NITROGEN (BUN) 34 mg/dL (9-23)
[2016-08-06] MEDS ORDERED: KEFLEX500 MG PO (11:56)
[2016-08-06 12:20] LABS: POINT-OF-CARE METER ID UU14162508
== END 2016-08-06 12:57 | disposition home health service (06) | DRG 684 ==
LOC: EME 16:50 → EDOF 20:49 → 2EAST 20:49
PROVIDERS: Emergency Medicine; Hospitalist; Student in an Organized Health Care Education/Training Program
PROC: 5A1D60Z (ICD-10-PCS; principal; 2016-08-06)
DX: N18.6 End stage renal disease (principal); I95.9 Hypotension, unspecified; R55 Syncope and collapse; E11.22 Type 2 diabetes mellitus with diabetic chronic kidney disease; I12.0 Hypertensive chronic kidney disease with stage 5 chronic kidney disease or end stage renal disease; J44.9 Chronic obstructive pulmonary disease, unspecified; J98.4 Other disorders of lung; I27.2 Other secondary pulmonary hypertension; I25.10 Atherosclerotic heart disease of native coronary artery without angina pectoris; G47.30 Sleep apnea, unspecified; D64.9 Anemia, unspecified; Z90.49 Acquired absence of other specified parts of digestive tract; Z99.2 Dependence on renal dialysis; Z79.4 Long term (current) use of insulin; I25.2 Old myocardial infarction
CPT/HCPCS: 71010; 78582; 80048; 81003; 82948; 84484; 85025; 87040; 87086; 93005; 94640; 94640 76; 99202; 99281; 99285; A9540; A9567; J0692; J1580; J1644; J1815; J1956; J7050

== ENCOUNTER 2016-10-02 16:04 | Emergency (ER) | payer OTHER ==
[~2016-10-02] VITALS: Ht 149.9 cm; Wt 53.5 kg
[~2016-10-02 16:04] MED LIST changes: +DIALYVITE 3,001 EACH PO; +LIDOCAINE-PRIL1 EACH TP; +NORVASC5 MG PO
[2016-10-02 17:17] LABS: MCH 31.1 PG (29.0-34.0); MCHC 33.7 G/DL (30.0-36.0); MCV 92.3 FL (83-99); MEAN PLAT.VOLUME 10.8 uM^3 (9.5-12.4); PLATELET COUNT 236 K/uL (156-360); RBC DIS.WIDTH-CV 14.2 % (11.8-14.6); RBC DIS.WIDTH-SD 48.1 % (39-53); RED BLOOD COUNT 3.79 M/uL (3.80-5.20); WHITE BLOOD COUNT 12.2 K/uL (4.1-10.2)
[2016-10-02 17:35] LABS: CHLORIDE 95 mEq/L (99-109); POTASSIUM 3.9 mEq/L (3.7-5.4)
[2016-10-02 17:36] LABS: SODIUM 136 mEq/L (136-147)
[2016-10-02 17:37] LABS: GLUCOSE 90 mg/dL (70-99)
[2016-10-02 17:39] LABS: ANION GAP 14 MEQ/L (2-14)
[2016-10-02 17:41] LABS: GFR ESTIMATE (CALCULATED) 14 mL/min/
[2016-10-02 17:42] LABS: UREA NITROGEN (BUN) 28 mg/dL (9-23)
[2016-10-02 18:33] LABS: COLOR YELLOW ((YELLOW)); LEUKOCYTES MODERATE; NITRITE NEGATIVE; PROTEIN (STRIP) >=2000
[2016-10-02 18:34] LABS: ADD MIUA? YES; BILIRUBIN NEGATIVE; BLOOD MODERATE; GLUCOSE (STRIP) NEGATIVE; KETONES NEGATIVE; UROBILINOGEN 0.2 MG/DL (0.2-1.0)
[2016-10-02 19:05] LABS: EPITHELIAL CELLS 1+ /HPF; WHITE BLOOD CELLS TNTC /HPF (0-5); WHITE BLOOD CELLS CLUMP RARE /HPF (0-5)
[2016-10-02 19:06] LABS: AMORPHOUS URATES CRYSTALS FEW; BACTERIA RARE /HPF; UCUL ADDED? YES
[2016-10-02 19:07] LABS: HYALINE CASTS RARE /LPF; MUCUS TRACE /LPF
[2016-10-02] MEDS ORDERED: LEVAQUIN500 MG PO (21:27)
[2016-10-02 21:42] VITALS: BP 144/58
== END 2016-10-02 21:45 | disposition home or self-care (01) ==
LOC: EME 16:04
DX: I12.9 Hypertensive chronic kidney disease with stage 1 through stage 4 chronic kidney disease, or unspecified chronic kidney disease (principal); N18.9 Chronic kidney disease, unspecified; N39.0 Urinary tract infection, site not specified; Z99.2 Dependence on renal dialysis; E11.9 Type 2 diabetes mellitus without complications; Z86.73 Personal history of transient ischemic attack (TIA), and cerebral infarction without residual deficits; I25.2 Old myocardial infarction; J44.9 Chronic obstructive pulmonary disease, unspecified; E78.5 Hyperlipidemia, unspecified; Z95.1 Presence of aortocoronary bypass graft; K21.9 Gastro-esophageal reflux disease without esophagitis
CPT/HCPCS: 80048; 81003; 85027; 87086 GA; 99281; 99285; J0696; J7050

== ENCOUNTER 2016-12-12 16:31 | Inpatient (IN) | payer OTHER ==
[~2016-12-12] VITALS: Ht 149.9 cm; Wt 54.9 kg
[~2016-12-12 16:31] MED LIST changes: +LIPITOR20 MG PO
[2016-12-12 17:25] LABS: BASOPHIL COUNT 0.1 K/uL (0-0.1); EOSINOPHIL COUNT 0.2 K/uL (0-0.3); HEMATOCRIT 33.6 % (36.0-46.0); IMMATURE GRANULOCYTE (%) 0.5 % (0.0-0.7); INSTRUMENT ABS NEUTROPHIL CT 5.2 K/uL; MCH 31.9 PG (29.0-34.0); MCV 96.6 FL (83-99); MEAN PLAT.VOLUME 11.8 uM^3 (9.5-12.4); MONOCYTE (%) 12.2 % (3-12); NEUTROPHIL (%) 61.6 % (45-76); NEUTROPHIL COUNT 5.2 K/uL (1.8-6.4); PLATELET COUNT 185 K/uL (156-360); RBC DIS.WIDTH-SD 49.4 % (39-53); RED BLOOD COUNT 3.48 M/uL (3.80-5.20); WHITE BLOOD COUNT 8.5 K/uL (4.1-10.2)
[2016-12-12 17:35] LABS: CHLORIDE 93 mEq/L (99-109); POTASSIUM 3.7 mEq/L (3.7-5.4); SODIUM 140 mEq/L (136-147)
[2016-12-12 17:37] LABS: GLUCOSE 86 mg/dL (70-99)
[2016-12-12 17:38] LABS: ANION GAP 15 MEQ/L (2-14)
[2016-12-12 17:39] LABS: TOTAL BILIRUBIN 0.8 mg/dL (0.0-1.0)
[2016-12-12 17:41] LABS: ALKALINE PHOSPHATASE 101 IU/L (3-129); GFR ESTIMATE (CALCULATED) 25 mL/min/
[2016-12-12 17:42] LABS: UREA NITROGEN (BUN) 10 mg/dL (9-23)
[2016-12-12 17:44] LABS: LIPASE 32 U/L (1.0-51.0)
[2016-12-12 18:46] LABS: ADD MIUA? YES; BILIRUBIN NEGATIVE; BLOOD NEGATIVE; COLOR YELLOW ((YELLOW)); GLUCOSE (STRIP) NEGATIVE; KETONES NEGATIVE; LEUKOCYTES NEGATIVE; NITRITE NEGATIVE; PROTEIN (STRIP) >=500; SPECIFIC GRAVITY 1.008 (1.000-1.030); UROBILINOGEN 0.2 MG/DL (0.2-1.0)
[2016-12-12 19:01] LABS: BACTERIA NONE SEEN /HPF; EPITHELIAL CELLS NONE SEEN /HPF; MUCUS NONE SEEN /LPF; RED BLOOD CELLS 0-5 /HPF (0-5); UCUL ADDED? NO; WHITE BLOOD CELLS 0-5 /HPF (0-5)
[2016-12-13] VITALS (8 sets, daily range): BP systolic 119–186; BP diastolic 44–110
[2016-12-13] MEDS ORDERED: ADVAIR HFA120 INHAL1 IH (00:47)
[2016-12-13] MEDS ORDERED: LORAZEPAM0.5 MG PO (01:02)
[2016-12-13] MEDS ORDERED: VELPHORO500 MG PO (01:03)
[2016-12-13] MEDS ORDERED: TEMAZEPAM15 MG PO (01:07)
[2016-12-13] MEDS ORDERED: ONDANSETRON HCL4 MG PO (01:09)
[2016-12-13] MEDS ORDERED: TRAMADOL HCL50 MG PO (01:11)
[2016-12-13] MEDS ORDERED: MELATONIN5 M4 PO (01:12)
[2016-12-13] MEDS ORDERED: SENOKOT,SENN1 TABLET PO (01:15)
[2016-12-13 06:15] LABS: HEMATOCRIT 34.1 % (36.0-46.0); MCH 33.6 PG (29.0-34.0); MCHC 33.7 G/DL (30.0-36.0); MCV 99.7 FL (83-99); MEAN PLAT.VOLUME 11.6 uM^3 (9.5-12.4); PLATELET COUNT 163 K/uL (156-360); RBC DIS.WIDTH-CV 14.2 % (11.8-14.6); RBC DIS.WIDTH-SD 51.7 % (39-53); RED BLOOD COUNT 3.42 M/uL (3.80-5.20); WHITE BLOOD COUNT 8.7 K/uL (4.1-10.2)
[2016-12-13 06:36] LABS: ANION GAP 11 MEQ/L (2-14); CHLORIDE 96 MEQ/L (99-109); GFR ESTIMATE (CALCULATED) 19 mL/min/; GLUCOSE 106 mg/dL (70-99); POTASSIUM 4.2 MEQ/L (3.7-5.4); SAMPLE HEMOLYSIS CHECK 0; SAMPLE ICTERIC CHECK 0; SAMPLE LIPEMIA CHECK 0; SODIUM 137 MEQ/L (136-147); UREA NITROGEN (BUN) 14 mg/dL (9-23)
[2016-12-13 10:23] LABS: POINT-OF-CARE METER ID UU13113725
[2016-12-13 17:06] LABS: POINT-OF-CARE METER ID UU13113774
[2016-12-13 20:54] LABS: POINT-OF-CARE METER ID UU13113774
[2016-12-14 05:51] LABS: POINT-OF-CARE METER ID UU13113774
[2016-12-14 06:45] LABS: ANION GAP 15 MEQ/L (2-14); CHLORIDE 98 MEQ/L (99-109); POTASSIUM 4.7 MEQ/L (3.7-5.4); SAMPLE HEMOLYSIS CHECK 0; SAMPLE ICTERIC CHECK 0; SAMPLE LIPEMIA CHECK 0; SODIUM 137 MEQ/L (136-147)
[2016-12-14 06:55] LABS: GFR ESTIMATE (CALCULATED) 13 mL/min/; GLUCOSE 110 mg/dL (70-99)
[2016-12-14 06:56] LABS: UREA NITROGEN (BUN) 28 mg/dL (9-23)
[2016-12-14 07:20] VITALS: BP 162/74
[2016-12-14 11:38] LABS: POINT-OF-CARE METER ID UU13113774
[2016-12-14 15:46] LABS: POINT-OF-CARE METER ID UU13113774
[2016-12-14 16:18] VITALS: BP 162/72
[2016-12-14 21:18] LABS: POINT-OF-CARE METER ID UU13113774
[2016-12-15 00:16] VITALS: BP 152/66
[2016-12-15 06:27] LABS: POINT-OF-CARE METER ID UU13113774
[2016-12-15 07:41] VITALS: BP 147/66
[2016-12-15] MEDS ORDERED: AMOX TR-K CLV1 EAC3 PO (08:46)
[2016-12-15] MEDS ORDERED: APRESOLINE25 MG PO (08:46)
[2016-12-15] MEDS ORDERED: DULOXETINE HCL30 MG PO (08:46)
[2016-12-15] MEDS ORDERED: MUCINEX600 MG PO (08:46)
[2016-12-15 09:45] LABS: BASOPHIL COUNT 0.1 K/uL (0-0.1); EOSINOPHIL (%) 0.7 % (0-5); EOSINOPHIL COUNT 0.1 K/uL (0-0.3); HEMATOCRIT 35.7 % (36.0-46.0); IMMATURE GRANULOCYTE (%) 0.8 % (0.0-0.7); IMMATURE GRANULOCYTE COUNT 0.1 K/uL; INSTRUMENT ABS NEUTROPHIL CT 10.2 K/uL; LYMPHOCYTE COUNT 2.5 K/uL (1.0-2.8); MCH 33.7 PG (29.0-34.0); MCHC 34.5 G/DL (30.0-36.0); MCV 97.8 FL (83-99); MEAN PLAT.VOLUME 11.8 uM^3 (9.5-12.4); MONOCYTE COUNT 1.8 K/uL (0-0.8); NEUTROPHIL (%) 69.1 % (45-76); NEUTROPHIL COUNT 10.2 K/uL (1.8-6.4); NRBC (%) 0.1 /100 WBC (0-0); RBC DIS.WIDTH-CV 14.4 % (11.8-14.6); RBC DIS.WIDTH-SD 51.6 % (39-53); RED BLOOD COUNT 3.65 M/uL (3.80-5.20); WHITE BLOOD COUNT 14.8 K/uL (4.1-10.2)
[2016-12-15 09:50] LABS: PLATELET COUNT 227 K/uL (156-360)
[2016-12-15 10:06] LABS: ANION GAP 18 MEQ/L (2-14); CHLORIDE 95 MEQ/L (99-109); GFR ESTIMATE (CALCULATED) 10 mL/min/; GLUCOSE 150 mg/dL (70-99); POTASSIUM 3.8 MEQ/L (3.7-5.4); SAMPLE HEMOLYSIS CHECK 0; SAMPLE ICTERIC CHECK 0; SAMPLE LIPEMIA CHECK 0; SODIUM 137 MEQ/L (136-147); UREA NITROGEN (BUN) 36 mg/dL (9-23)
[2016-12-15 11:28] VITALS: BP 153/67
[2016-12-15 11:32] LABS: POINT-OF-CARE METER ID UU13113725
== END 2016-12-15 13:32 | disposition home or self-care (01) | DRG 391 ==
LOC: EME 16:31 → EDOF 21:35 → 5EAST 21:35 → ENRESERV 21:37 → 5EAST 22:45 → ENPENDDIS 12-15 → 5EAST 12-15 13:32
PROVIDERS: Emergency Medicine; Hospitalist; Internal Medicine; Internal Medicine Nephrology
PROC: 5A1D70Z Performance of Urinary Filtration, Intermittent, Less than 6 Hours Per Day (ICD-10-PCS; principal; 2016-12-15)
DX: K57.32 Diverticulitis of large intestine without perforation or abscess without bleeding (principal); N18.6 End stage renal disease; I13.2 Hypertensive heart and chronic kidney disease with heart failure and with stage 5 chronic kidney disease, or end stage renal disease; Z99.2 Dependence on renal dialysis; I50.9 Heart failure, unspecified; I48.0 Paroxysmal atrial fibrillation; G47.33 Obstructive sleep apnea (adult) (pediatric); E11.22 Type 2 diabetes mellitus with diabetic chronic kidney disease; I27.20 Pulmonary hypertension, unspecified; I25.2 Old myocardial infarction; J20.9 Acute bronchitis, unspecified; R53.1 Weakness; T37.3X5A Adverse effect of other antiprotozoal drugs, initial encounter; Y92.239 Unspecified place in hospital as the place of occurrence of the external cause; J44.0 Chronic obstructive pulmonary disease with (acute) lower respiratory infection; J44.1 Chronic obstructive pulmonary disease with (acute) exacerbation; K21.9 Gastro-esophageal reflux disease without esophagitis; I25.10 Atherosclerotic heart disease of native coronary artery without angina pectoris; Z86.73 Personal history of transient ischemic attack (TIA), and cerebral infarction without residual deficits; Z95.1 Presence of aortocoronary bypass graft; D64.9 Anemia, unspecified; E78.5 Hyperlipidemia, unspecified; G31.09 Other frontotemporal neurocognitive disorder; F02.81 Dementia in other diseases classified elsewhere, unspecified severity, with behavioral disturbance; R18.8 Other ascites; K59.00 Constipation, unspecified; Z79.82 Long term (current) use of aspirin; Z79.4 Long term (current) use of insulin
CPT/HCPCS: 71010; 74176; 80048; 80053; 80069; 81003; 82948; 83605; 83690; 85025; 85027; 93005; 94640; 94640 76; 99202; 99281; 99285; J0744; J1200; J1644; J1650; J1815; J2405; J2543; J7050; J7512; S0030

== ENCOUNTER 2016-12-18 11:02 | Inpatient (IN) | payer OTHER ==
[~2016-12-18] VITALS: Ht 162.6 cm; Wt 67.3 kg
[~2016-12-18 11:02] MED LIST changes: +AMOX TR-K CLV1 EAC3 PO; +APRESOLINE25 MG PO; +DULOXETINE HCL30 MG PO; +LORAZEPAM0.5 MG PO; +MELATONIN5 M4 PO; +MUCINEX600 MG PO; +ONDANSETRON HCL4 MG PO; +SENOKOT,SENN1 TABLET PO; +TEMAZEPAM15 MG PO; +TRAMADOL HCL50 MG PO; +VELPHORO500 MG PO
[2016-12-18 11:50] LABS: BASOPHIL COUNT 0.1 K/uL (0-0.1); EOSINOPHIL (%) 2.4 % (0-5); EOSINOPHIL COUNT 0.3 K/uL (0-0.3); HEMATOCRIT 35.8 % (36.0-46.0); IMMATURE GRANULOCYTE (%) 0.5 % (0.0-0.7); IMMATURE GRANULOCYTE COUNT 0.1 K/uL; INSTRUMENT ABS NEUTROPHIL CT 8.3 K/uL; LYMPHOCYTE COUNT 1.7 K/uL (1.0-2.8); MCH 32.5 PG (29.0-34.0); MCHC 33.5 G/DL (30.0-36.0); MEAN PLAT.VOLUME 11.2 uM^3 (9.5-12.4); MONOCYTE (%) 11.7 % (3-12); MONOCYTE COUNT 1.4 K/uL (0-0.8); NEUTROPHIL (%) 70.3 % (45-76); NEUTROPHIL COUNT 8.3 K/uL (1.8-6.4); PLATELET COUNT 189 K/uL (156-360); RBC DIS.WIDTH-CV 14.6 % (11.8-14.6); RED BLOOD COUNT 3.69 M/uL (3.80-5.20); WHITE BLOOD COUNT 11.8 K/uL (4.1-10.2)
[2016-12-18 11:58] LABS: CHLORIDE 93 mEq/L (99-109)
[2016-12-18 11:59] LABS: POTASSIUM 3.4 mEq/L (3.7-5.4); SODIUM 138 mEq/L (136-147)
[2016-12-18 12:01] LABS: GLUCOSE 100 mg/dL (70-99)
[2016-12-18 12:02] LABS: ANION GAP 13 MEQ/L (2-14)
[2016-12-18 12:03] LABS: TOTAL BILIRUBIN 0.8 mg/dL (0.0-1.0)
[2016-12-18 12:04] LABS: ALKALINE PHOSPHATASE 82 IU/L (3-129)
[2016-12-18 12:06] LABS: UREA NITROGEN (BUN) 20 mg/dL (9-23)
[2016-12-18 12:10] LABS: GFR ESTIMATE (CALCULATED) 14 mL/min/
[2016-12-18 14:09] LABS: ADD MIUA? YES; BILIRUBIN SMALL; BLOOD NEGATIVE; COLOR YELLOW ((YELLOW)); GLUCOSE (STRIP) NEGATIVE; KETONES NEGATIVE; LEUKOCYTES SMALL; NITRITE NEGATIVE; PROTEIN (STRIP) >=500; SPECIFIC GRAVITY 1.016 (1.000-1.030); UROBILINOGEN 0.2 MG/DL (0.2-1.0)
[2016-12-18 14:18] LABS: BACTERIA NONE SEEN /HPF; EPITHELIAL CELLS 1+ /HPF; MUCUS TRACE /LPF; WHITE BLOOD CELLS 15-20 /HPF (0-5)
[2016-12-18 14:35] LABS: SITE RR
[2016-12-18 14:36] LABS: COMMENTS - BLOOD GASES NAC+; FI02 21 %; HEMOGLOBIN 11.6 (11.9-15.5); PCO2 31 mm Hg (35-45); PO2 97 mm Hg (80-100); pH 7.63 (7.35-7.45)
[2016-12-18 14:37] LABS: BASE EXCESS 11.2 mEq/L (-3 to +3); BICARBONATE 32.6 mEq/L (22-26); CARBOXY HGB 1.7 % (0-5)
[2016-12-18 14:41] LABS: TROP-I INTERPRETATION NEGATIVE; TROPONIN-I 0.04 ng/mL (0.0-0.30)
[2016-12-18] MEDS ORDERED: FLONASE16 G1 BOTH NARES (14:58)
[2016-12-18] MEDS ORDERED: AUGMENTIN500 MG PO (15:01)
[2016-12-18 15:14] LABS: INTER. NORMALIZED RATIO 1.3
[2016-12-18 15:17] LABS: PTT 31.1 SEC (25-37)
[2016-12-18 16:45] VITALS: BP 176/76
[2016-12-18 20:00] VITALS: BP 173/69
[2016-12-19] VITALS (7 sets, daily range): BP systolic 136–171; BP diastolic 55–71
[2016-12-19 00:40] LABS: POINT-OF-CARE METER ID UU14162513
[2016-12-19 05:41] LABS: ANION GAP 12 MEQ/L (2-14); CHLORIDE 95 MEQ/L (99-109); GLUCOSE 101 mg/dL (70-99); SAMPLE HEMOLYSIS CHECK 0; SAMPLE ICTERIC CHECK 0; SAMPLE LIPEMIA CHECK 0; SODIUM 136 MEQ/L (136-147); UREA NITROGEN (BUN) 23 mg/dL (9-23)
[2016-12-19 05:49] LABS: GFR ESTIMATE (CALCULATED) 12 mL/min/; POTASSIUM 4.4 MEQ/L (3.7-5.4)
[2016-12-19 09:51] LABS: BASOPHIL COUNT 0.1 K/uL (0-0.1); EOSINOPHIL (%) 3.2 % (0-5); EOSINOPHIL COUNT 0.4 K/uL (0-0.3); HEMATOCRIT 36.7 % (36.0-46.0); IMMATURE GRANULOCYTE (%) 0.8 % (0.0-0.7); IMMATURE GRANULOCYTE COUNT 0.1 K/uL; LYMPHOCYTE COUNT 2.1 K/uL (1.0-2.8); MCH 33.3 PG (29.0-34.0); MCHC 33.5 G/DL (30.0-36.0); MCV 99.5 FL (83-99); MEAN PLAT.VOLUME 11.7 uM^3 (9.5-12.4); MONOCYTE (%) 12.1 % (3-12); MONOCYTE COUNT 1.5 K/uL (0-0.8); NEUTROPHIL (%) 66.3 % (45-76); PLATELET COUNT 206 K/uL (156-360); RBC DIS.WIDTH-CV 15.3 % (11.8-14.6); RBC DIS.WIDTH-SD 54.2 % (39-53); RED BLOOD COUNT 3.69 M/uL (3.80-5.20); WHITE BLOOD COUNT 12.1 K/uL (4.1-10.2)
[2016-12-19 11:24] LABS: POINT-OF-CARE METER ID UU13113681
[2016-12-19 21:25] LABS: POINT-OF-CARE METER ID UU13113831
[2016-12-20 03:48] VITALS: BP 172/75
[2016-12-20 07:56] VITALS: BP 172/73
[2016-12-20 08:20] LABS: POINT-OF-CARE METER ID UU14162513
[2016-12-20 09:29] LABS: BASOPHIL COUNT 0.1 K/uL (0-0.1); EOSINOPHIL (%) 2.6 % (0-5); EOSINOPHIL COUNT 0.3 K/uL (0-0.3); HEMATOCRIT 37.5 % (36.0-46.0); IMMATURE GRANULOCYTE (%) 0.6 % (0.0-0.7); IMMATURE GRANULOCYTE COUNT 0.1 K/uL; INSTRUMENT ABS NEUTROPHIL CT 7.8 K/uL; LYMPHOCYTE COUNT 2.5 K/uL (1.0-2.8); MCH 32.4 PG (29.0-34.0); MCHC 32.5 G/DL (30.0-36.0); MCV 99.5 FL (83-99); MEAN PLAT.VOLUME 11.3 uM^3 (9.5-12.4); MONOCYTE (%) 12.7 % (3-12); MONOCYTE COUNT 1.6 K/uL (0-0.8); NEUTROPHIL (%) 63.1 % (45-76); NEUTROPHIL COUNT 7.8 K/uL (1.8-6.4); PLATELET COUNT 175 K/uL (156-360); RBC DIS.WIDTH-CV 15.2 % (11.8-14.6); RBC DIS.WIDTH-SD 54.8 % (39-53); RED BLOOD COUNT 3.77 M/uL (3.80-5.20); WHITE BLOOD COUNT 12.4 K/uL (4.1-10.2)
[2016-12-20 11:11] VITALS: BP 165/67
[2016-12-20 12:22] LABS: POINT-OF-CARE METER ID UU13113831
[2016-12-20 16:00] VITALS: BP 190/72
[2016-12-20 17:16] LABS: POINT-OF-CARE METER ID UU13113831
[2016-12-20 20:00] VITALS: BP 92/64
[2016-12-20 21:26] LABS: POINT-OF-CARE METER ID UU14162513
[2016-12-20 22:26] VITALS: BP 141/55
[2016-12-21 03:48] VITALS: BP 182/74
[2016-12-21 05:30] LABS: BASOPHIL COUNT 0.1 K/uL (0-0.1); EOSINOPHIL (%) 3.9 % (0-5); EOSINOPHIL COUNT 0.5 K/uL (0-0.3); HEMATOCRIT 36.5 % (36.0-46.0); IMMATURE GRANULOCYTE (%) 0.9 % (0.0-0.7); IMMATURE GRANULOCYTE COUNT 0.1 K/uL; INSTRUMENT ABS NEUTROPHIL CT 7.9 K/uL; LYMPHOCYTE COUNT 2.1 K/uL (1.0-2.8); MCH 31.8 PG (29.0-34.0); MCHC 32.1 G/DL (30.0-36.0); MCV 99.2 FL (83-99); MEAN PLAT.VOLUME 11.1 uM^3 (9.5-12.4); MONOCYTE COUNT 1.8 K/uL (0-0.8); NEUTROPHIL (%) 63.4 % (45-76); NEUTROPHIL COUNT 7.9 K/uL (1.8-6.4); PLATELET COUNT 179 K/uL (156-360); RBC DIS.WIDTH-CV 15.1 % (11.8-14.6); RBC DIS.WIDTH-SD 53.8 % (39-53); RED BLOOD COUNT 3.68 M/uL (3.80-5.20); WHITE BLOOD COUNT 12.5 K/uL (4.1-10.2)
[2016-12-21 05:58] LABS: ANION GAP 12 MEQ/L (2-14); CHLORIDE 97 MEQ/L (99-109); GFR ESTIMATE (CALCULATED) 12 mL/min/; GLUCOSE 106 mg/dL (70-99); POTASSIUM 4.1 MEQ/L (3.7-5.4); SAMPLE HEMOLYSIS CHECK 0; SAMPLE ICTERIC CHECK 0; SAMPLE LIPEMIA CHECK 0; SODIUM 138 MEQ/L (136-147); UREA NITROGEN (BUN) 24 mg/dL (9-23)
[2016-12-21 08:13] LABS: POINT-OF-CARE METER ID UU13113831
[2016-12-21 09:04] VITALS: BP 132/69
[2016-12-21 11:21] VITALS: BP 175/73
[2016-12-21 14:30] LABS: POINT-OF-CARE METER ID UU13113700
[2016-12-21 15:32] VITALS: BP 180/77
[2016-12-21 17:26] LABS: POINT-OF-CARE METER ID UU13113700
[2016-12-21 23:21] VITALS: BP 144/67
[2016-12-22 04:37] VITALS: BP 137/64
[2016-12-22 06:19] LABS: BASOPHIL COUNT 0.1 K/uL (0-0.1); EOSINOPHIL (%) 4.1 % (0-5); EOSINOPHIL COUNT 0.5 K/uL (0-0.3); HEMATOCRIT 37.3 % (36.0-46.0); IMMATURE GRANULOCYTE (%) 0.9 % (0.0-0.7); IMMATURE GRANULOCYTE COUNT 0.1 K/uL; INSTRUMENT ABS NEUTROPHIL CT 7.8 K/uL; LYMPHOCYTE COUNT 2.3 K/uL (1.0-2.8); MCH 32.1 PG (29.0-34.0); MCHC 31.9 G/DL (30.0-36.0); MCV 100.5 FL (83-99); MEAN PLAT.VOLUME 11.2 uM^3 (9.5-12.4); MONOCYTE (%) 13.7 % (3-12); MONOCYTE COUNT 1.7 K/uL (0-0.8); NEUTROPHIL (%) 62.3 % (45-76); NEUTROPHIL COUNT 7.8 K/uL (1.8-6.4); PLATELET COUNT 202 K/uL (156-360); RBC DIS.WIDTH-CV 15.1 % (11.8-14.6); RBC DIS.WIDTH-SD 54.6 % (39-53); RED BLOOD COUNT 3.71 M/uL (3.80-5.20); WHITE BLOOD COUNT 12.6 K/uL (4.1-10.2)
[2016-12-22 06:27] LABS: ANION GAP 13 MEQ/L (2-14); CHLORIDE 95 MEQ/L (99-109); GFR ESTIMATE (CALCULATED) 10 mL/min/; GLUCOSE 119 mg/dL (70-99); POTASSIUM 4.2 MEQ/L (3.7-5.4); SAMPLE HEMOLYSIS CHECK 0; SAMPLE ICTERIC CHECK 0; SAMPLE LIPEMIA CHECK 0; SODIUM 136 MEQ/L (136-147); UREA NITROGEN (BUN) 27 mg/dL (9-23)
[2016-12-22 08:00] VITALS: BP 120/85
[2016-12-22] MEDS ORDERED: KEFLEX250 MG PO (11:07)
[2016-12-22] MEDS ORDERED: APRESOLINE50 MG PO (11:07)
[2016-12-22] MEDS ORDERED: GENERLAC10 GM/15 M PO (11:07)
[2016-12-22 12:07] VITALS: BP 142/66
== END 2016-12-22 15:10 | disposition home health service (06) | DRG 689 ==
LOC: EME → EDBD 11:02 → EME 11:02 → EDOF 15:12 → 5WEST 15:12 → ENRESERV 15:13 → 5WEST 16:35 → CANRESERV 12-19 13:39 → ENRESERV 12-19 13:39 → 5WEST 12-22 15:10
PROVIDERS: Emergency Medicine; Hospitalist; Internal Medicine; Internal Medicine Nephrology
PROC: 5A1D70Z Performance of Urinary Filtration, Intermittent, Less than 6 Hours Per Day (ICD-10-PCS; principal; 2016-12-19)
DX: N39.0 Urinary tract infection, site not specified (principal); G93.40 Encephalopathy, unspecified; I13.2 Hypertensive heart and chronic kidney disease with heart failure and with stage 5 chronic kidney disease, or end stage renal disease; E11.22 Type 2 diabetes mellitus with diabetic chronic kidney disease; N18.6 End stage renal disease; I50.32 Chronic diastolic (congestive) heart failure; E87.6 Hypokalemia; R55 Syncope and collapse; Z99.2 Dependence on renal dialysis; F03.90 Unspecified dementia, unspecified severity, without behavioral disturbance, psychotic disturbance, mood disturbance, and anxiety; I27.20 Pulmonary hypertension, unspecified; K57.92 Diverticulitis of intestine, part unspecified, without perforation or abscess without bleeding; K74.60 Unspecified cirrhosis of liver; R18.8 Other ascites; Z66 Do not resuscitate; G47.30 Sleep apnea, unspecified; J43.9 Emphysema, unspecified; D64.9 Anemia, unspecified; E78.5 Hyperlipidemia, unspecified; K21.9 Gastro-esophageal reflux disease without esophagitis; F32.9 Major depressive disorder, single episode, unspecified; F41.9 Anxiety disorder, unspecified; G43.909 Migraine, unspecified, not intractable, without status migrainosus; K59.00 Constipation, unspecified; I25.10 Atherosclerotic heart disease of native coronary artery without angina pectoris; Z79.4 Long term (current) use of insulin; Z86.73 Personal history of transient ischemic attack (TIA), and cerebral infarction without residual deficits; Z82.49 Family history of ischemic heart disease and other diseases of the circulatory system; Z95.1 Presence of aortocoronary bypass graft
CPT/HCPCS: 36600; 70450; 71020; 74177; 80048; 80053; 80069; 81003; 82140; 82803; 82948; 83605; 84443; 84484; 85025; 85610; 85730; 87040; 87086; 94640; 94640 76; 99281; 99285; G0378; J0696; J1644; J7040; J7050; J7120

== ENCOUNTER 2017-02-10 18:12 | Inpatient (IN) | payer OTHER ==
[~2017-02-10] VITALS: Ht 162.6 cm; Wt 58.2 kg
[~2017-02-10 18:12] MED LIST changes: +APRESOLINE50 MG PO; +AUGMENTIN500 MG PO; +FLONASE16 G1 BOTH NARES; +GENERLAC10 GM/15 M PO; +KEFLEX250 MG PO; +PREDNISONE50 MG PO; +ZITHROMAX250 MG PO
[2017-02-10 20:23] LABS: HEMATOCRIT 33.2 % (36.0-46.0); MCH 33.4 PG (29.0-34.0); MCHC 33.1 G/DL (30.0-36.0); MCV 100.9 FL (83-99); MEAN PLAT.VOLUME 11.1 uM^3 (9.5-12.4); RBC DIS.WIDTH-CV 15.9 % (11.8-14.6); RBC DIS.WIDTH-SD 58.4 % (39-53); RED BLOOD COUNT 3.29 M/uL (3.80-5.20); WHITE BLOOD COUNT 9.4 K/uL (4.1-10.2)
[2017-02-10 20:25] LABS: PLATELET COUNT 204 K/uL (156-360)
[2017-02-10 20:34] LABS: CHLORIDE 97 mEq/L (99-109); POTASSIUM 4.4 mEq/L (3.7-5.4); SODIUM 139 mEq/L (136-147)
[2017-02-10 20:36] LABS: GLUCOSE 114 mg/dL (70-99)
[2017-02-10 20:37] LABS: ANION GAP 17 MEQ/L (2-14)
[2017-02-10 20:40] LABS: GFR ESTIMATE (CALCULATED) 11 mL/min/
[2017-02-10 20:41] LABS: UREA NITROGEN (BUN) 20 mg/dL (9-23)
[2017-02-10] MEDS ORDERED: FUROSEMIDE40 MG PO (20:54)
[2017-02-10] MEDS ORDERED: NORTRIPTYLINE H10 MG PO (20:55)
[2017-02-10 22:55] VITALS: BP 159/67
[2017-02-10 23:18] LABS: POINT-OF-CARE METER ID UU13113725
[2017-02-11 06:06] LABS: POINT-OF-CARE METER ID UU13113725
[2017-02-11 06:06] LABS: HEMATOCRIT 31.7 % (36.0-46.0); MCH 33.3 PG (29.0-34.0); MCHC 33.1 G/DL (30.0-36.0); MCV 100.6 FL (83-99); PLATELET COUNT 200 K/uL (156-360); RBC DIS.WIDTH-CV 15.7 % (11.8-14.6); RBC DIS.WIDTH-SD 57.4 % (39-53); RED BLOOD COUNT 3.15 M/uL (3.80-5.20)
[2017-02-11 06:29] LABS: ANION GAP 11 MEQ/L (2-14); CHLORIDE 99 MEQ/L (99-109); GFR ESTIMATE (CALCULATED) 10 mL/min/; GLUCOSE 119 mg/dL (70-99); POTASSIUM 4.4 MEQ/L (3.7-5.4); SAMPLE HEMOLYSIS CHECK 0; SAMPLE ICTERIC CHECK 0; SAMPLE LIPEMIA CHECK 0; SODIUM 137 MEQ/L (136-147); UREA NITROGEN (BUN) 23 mg/dL (9-23)
[2017-02-11 07:44] VITALS: BP 141/69
[2017-02-11 13:18] LABS: POINT-OF-CARE METER ID UU13113725
[2017-02-11 13:19] VITALS: BP 172/72
[2017-02-11 16:26] LABS: POINT-OF-CARE METER ID UU13113725
[2017-02-11 17:02] VITALS: BP 158/63
[2017-02-11 21:30] LABS: POINT-OF-CARE METER ID UU13113725
[2017-02-11 21:42] LABS: POINT-OF-CARE METER ID UU13113725
[2017-02-11 22:49] VITALS: BP 151/73
[2017-02-12 06:21] LABS: POINT-OF-CARE METER ID UU13113774
[2017-02-12 07:42] VITALS: BP 157/70
[2017-02-12 08:59] LABS: HEMATOCRIT 35.9 % (36.0-46.0); MCH 32.4 PG (29.0-34.0); MCHC 32.3 G/DL (30.0-36.0); MCV 100.3 FL (83-99); MEAN PLAT.VOLUME 10.8 uM^3 (9.5-12.4); PLATELET COUNT 237 K/uL (156-360); RBC DIS.WIDTH-CV 15.4 % (11.8-14.6); RBC DIS.WIDTH-SD 56.5 % (39-53); RED BLOOD COUNT 3.58 M/uL (3.80-5.20); WHITE BLOOD COUNT 9.8 K/uL (4.1-10.2)
[2017-02-12 09:35] LABS: ANION GAP 15 MEQ/L (2-14); CHLORIDE 97 MEQ/L (99-109); GFR ESTIMATE (CALCULATED) 15 mL/min/; GLUCOSE 151 mg/dL (70-99); POTASSIUM 4.2 MEQ/L (3.7-5.4); SAMPLE HEMOLYSIS CHECK 0; SAMPLE ICTERIC CHECK 0; SAMPLE LIPEMIA CHECK 0; SODIUM 136 MEQ/L (136-147); UREA NITROGEN (BUN) 21 mg/dL (9-23)
[2017-02-12 11:38] LABS: POINT-OF-CARE METER ID UU13113725
[2017-02-12] MEDS ORDERED: CEFTIN500 MG PO (14:35)
[2017-02-12] MEDS ORDERED: DOXYCYCLINE HY100 MG PO (14:35)
[2017-02-12] MEDS ORDERED: PREDNISONE10 MG PO (14:35)
[2017-02-12 15:56] VITALS: BP 142/66
[2017-02-12] MEDS ORDERED: ZYVOX600 MG PO (16:11)
== END 2017-02-12 16:50 | disposition home health service (06) | DRG 689 ==
LOC: EME 18:12 → 5EAST 20:38 → EDOF 20:38 → ENRESERV 20:40 → 5EAST 21:57
PROVIDERS: Emergency Medicine; Hospitalist
PROC: 5A1D70Z Performance of Urinary Filtration, Intermittent, Less than 6 Hours Per Day (ICD-10-PCS; principal; 2017-02-11)
DX: N39.0 Urinary tract infection, site not specified (principal); N18.6 End stage renal disease; I13.2 Hypertensive heart and chronic kidney disease with heart failure and with stage 5 chronic kidney disease, or end stage renal disease; I50.22 Chronic systolic (congestive) heart failure; J44.0 Chronic obstructive pulmonary disease with (acute) lower respiratory infection; J44.1 Chronic obstructive pulmonary disease with (acute) exacerbation; J45.901 Unspecified asthma with (acute) exacerbation; J20.9 Acute bronchitis, unspecified; Z16.21 Resistance to vancomycin; B95.2 Enterococcus as the cause of diseases classified elsewhere; D63.1 Anemia in chronic kidney disease; I25.10 Atherosclerotic heart disease of native coronary artery without angina pectoris; E11.22 Type 2 diabetes mellitus with diabetic chronic kidney disease; K59.00 Constipation, unspecified; I27.20 Pulmonary hypertension, unspecified; E78.5 Hyperlipidemia, unspecified; G47.33 Obstructive sleep apnea (adult) (pediatric); Z99.2 Dependence on renal dialysis; Z95.3 Presence of xenogenic heart valve; Z79.51 Long term (current) use of inhaled steroids; Z95.1 Presence of aortocoronary bypass graft; Z90.49 Acquired absence of other specified parts of digestive tract; Z83.3 Family history of diabetes mellitus; Z82.49 Family history of ischemic heart disease and other diseases of the circulatory system; Z80.1 Family history of malignant neoplasm of trachea, bronchus and lung; Z80.0 Family history of malignant neoplasm of digestive organs
CPT/HCPCS: 71010; 80048; 81003; 82948; 83605; 85027; 87040; 94640; 94640 76; 99202; 99281; 99284; J0696; J1644; J1815; J2020; J2920; J7030; J7512

== ENCOUNTER 2017-03-04 11:24 | Observation (INO) | payer OTHER ==
[~2017-03-04] VITALS: Ht 149.9 cm; Wt 56.2 kg
[~2017-03-04 11:24] MED LIST changes: +DOXYCYCLINE HY100 MG PO; +NORTRIPTYLINE H10 MG PO; +ZYVOX600 MG PO
[2017-03-04 13:00] LABS: HEMATOCRIT 28.8 % (36.0-46.0); HEMOGLOBIN 9.8 G/DL (11.9-15.5); MCH 34.1 PG (29.0-34.0); MCV 100.3 FL (83-99); NRBC (%) 0.1 /100 WBC (0-0); RBC DIS.WIDTH-SD 60.1 % (39-53); RED BLOOD COUNT 2.87 M/uL (3.80-5.20); WHITE BLOOD COUNT 13.9 K/uL (4.1-10.2)
[2017-03-04 13:12] LABS: CHLORIDE 99 mEq/L (99-109); POTASSIUM 4.6 mEq/L (3.7-5.4); SODIUM 137 mEq/L (136-147)
[2017-03-04 13:14] LABS: GLUCOSE 101 mg/dL (70-99)
[2017-03-04 13:18] LABS: CREATININE 6.3 mg/dL (0.6-1.3); GFR ESTIMATE (CALCULATED) 7 mL/min/; UREA NITROGEN (BUN) 28 mg/dL (9-23)
[2017-03-04 14:10] LABS: PLATELET COUNT 111 K/uL (156-360)
[2017-03-04 14:43] LABS: APPEARANCE SL.HAZY ((CLEAR)); BILIRUBIN NEGATIVE; BLOOD NEGATIVE; COLOR AMBER ((YELLOW)); GLUCOSE (STRIP) NEGATIVE; KETONES NEGATIVE; LEUKOCYTES SMALL; NITRITE NEGATIVE; PROTEIN (STRIP) >=500; SPECIFIC GRAVITY 1.016 (1.000-1.030); UROBILINOGEN 0.2 MG/DL (0.2-1.0)
[2017-03-04 15:07] LABS: EPITHELIAL CELLS RARE /HPF; RED BLOOD CELLS 0-5 /HPF (0-5); WHITE BLOOD CELLS TNTC /HPF (0-5)
[2017-03-04 15:08] LABS: BACTERIA 1+ /HPF; MUCUS 1+ /LPF; UCUL ADDED? YES
[2017-03-04] MEDS ORDERED: PHENERGAN DM SYR1 ML PO (18:25)
[2017-03-04] MEDS ORDERED: TRIMETHOPRIM100 MG PO (18:25)
[2017-03-04 19:50] VITALS: BP 142/60
[2017-03-04 23:35] VITALS: BP 146/63
[2017-03-05 06:42] LABS: BASOPHIL (%) 0.9 % (0-1); BASOPHIL COUNT 0.1 K/uL (0-0.1); EOSINOPHIL (%) 2.3 % (0-5); EOSINOPHIL COUNT 0.3 K/uL (0-0.3); HEMATOCRIT 30.9 % (36.0-46.0); HEMOGLOBIN 9.9 G/DL (11.9-15.5); IMMATURE GRANULOCYTE (%) 0.8 % (0.0-0.7); LYMPHOCYTE (%) 16.7 % (15-42); MCH 32.5 PG (29.0-34.0); MCV 101.3 FL (83-99); MONOCYTE (%) 11.6 % (3-12); MONOCYTE COUNT 1.4 K/uL (0-0.8); NEUTROPHIL (%) 67.7 % (45-76); NRBC (%) 0.3 /100 WBC (0-0); PLATELET COUNT 114 K/uL (156-360); RBC DIS.WIDTH-CV 17.4 % (11.8-14.6); RBC DIS.WIDTH-SD 61.4 % (39-53); RED BLOOD COUNT 3.05 M/uL (3.80-5.20); WHITE BLOOD COUNT 11.8 K/uL (4.1-10.2)
[2017-03-05 07:10] LABS: CHLORIDE 98 MEQ/L (99-109); CREATININE 6.8 MG/DL (0.6-1.3); GFR ESTIMATE (CALCULATED) 6 mL/min/; GLUCOSE 93 mg/dL (70-99); SODIUM 137 MEQ/L (136-147); UREA NITROGEN (BUN) 34 mg/dL (9-23)
[2017-03-05 07:13] LABS: POTASSIUM 5.6 MEQ/L (3.7-5.4)
[2017-03-05 07:55] VITALS: BP 104/55
[2017-03-05 11:08] VITALS: BP 159/64
[2017-03-05 23:33] VITALS: BP 108/53
[2017-03-06 07:35] VITALS: BP 121/50
[2017-03-06 08:33] LABS: HEMATOCRIT 28.6 % (36.0-46.0); HEMOGLOBIN 9.2 G/DL (11.9-15.5); MCH 32.9 PG (29.0-34.0); MCHC 32.2 G/DL (30.0-36.0); MCV 102.1 FL (83-99); PLATELET COUNT 108 K/uL (156-360); RBC DIS.WIDTH-CV 17.8 % (11.8-14.6); RBC DIS.WIDTH-SD 64.2 % (39-53); WHITE BLOOD COUNT 10.1 K/uL (4.1-10.2)
[2017-03-06 09:10] LABS: CHLORIDE 101 MEQ/L (99-109); SODIUM 137 MEQ/L (136-147); UREA NITROGEN (BUN) 17 mg/dL (9-23)
[2017-03-06 09:12] LABS: GFR ESTIMATE (CALCULATED) 11 mL/min/; GLUCOSE 165 mg/dL (70-99); POTASSIUM 3.9 MEQ/L (3.7-5.4)
[2017-03-06 16:03] VITALS: BP 122/48
[2017-03-07 00:02] VITALS: BP 122/45
[2017-03-07 07:10] VITALS: BP 118/48
[2017-03-07] MEDS ORDERED: LINEZOLID600 MG PO (11:24)
[2017-03-07] MEDS ORDERED: POLYETHYLENE GL17 GM PO (11:24)
[2017-03-07] MEDS ORDERED: TRIMETHOPRIM100 MG PO (11:24)
[2017-03-07] MEDS ORDERED: ANTI-ITCH28 G1 TP (11:24)
== END 2017-03-07 15:26 | disposition home or self-care (01) ==
LOC: EME 11:24 → 5SOUTH 17:19 → EDOF 17:19 → 5SOUTH 17:19 → ENRESERV 17:20 → 5SOUTH 19:19
PROVIDERS: Emergency Medicine; Hospitalist; Internal Medicine
PROC: 5A1D70Z Performance of Urinary Filtration, Intermittent, Less than 6 Hours Per Day (ICD-10-PCS; principal; 2017-03-05)
DX: R41.82 Altered mental status, unspecified (principal); N39.0 Urinary tract infection, site not specified; Z16.21 Resistance to vancomycin; D53.9 Nutritional anemia, unspecified; D63.1 Anemia in chronic kidney disease; I13.2 Hypertensive heart and chronic kidney disease with heart failure and with stage 5 chronic kidney disease, or end stage renal disease; I50.32 Chronic diastolic (congestive) heart failure; N18.6 End stage renal disease; Z99.2 Dependence on renal dialysis; E11.22 Type 2 diabetes mellitus with diabetic chronic kidney disease; I25.10 Atherosclerotic heart disease of native coronary artery without angina pectoris; F41.9 Anxiety disorder, unspecified; G47.00 Insomnia, unspecified; G89.29 Other chronic pain; K21.9 Gastro-esophageal reflux disease without esophagitis; J44.9 Chronic obstructive pulmonary disease, unspecified; E11.21 Type 2 diabetes mellitus with diabetic nephropathy; Z87.440 Personal history of urinary (tract) infections; Z95.1 Presence of aortocoronary bypass graft; Z95.2 Presence of prosthetic heart valve; G47.33 Obstructive sleep apnea (adult) (pediatric); I08.1 Rheumatic disorders of both mitral and tricuspid valves; I27.20 Pulmonary hypertension, unspecified; F32.9 Major depressive disorder, single episode, unspecified; F03.90 Unspecified dementia, unspecified severity, without behavioral disturbance, psychotic disturbance, mood disturbance, and anxiety; Z79.82 Long term (current) use of aspirin; Z88.8 Allergy status to other drugs, medicaments and biological substances; Z82.49 Family history of ischemic heart disease and other diseases of the circulatory system; Z83.3 Family history of diabetes mellitus
CPT/HCPCS: 71020; 74230; 80048; 81003; 82948; 85025; 85027; 87086; 92610 GN; 92611 GN; 93005; 94640; 94640 76; 94760; 99202; 99281; 99284; G0257; G0378; G8996 GN CJ; G8997 GN CJ; G8998 GN CJ; J1644; J1815; J2405

== ENCOUNTER 2017-03-16 22:29 | Inpatient (IN) | payer OTHER ==
[~2017-03-16] VITALS: Ht 149.9 cm; Wt 59.5 kg
[~2017-03-16 22:29] MED LIST changes: +ANTI-ITCH28 G1 TP; +LINEZOLID600 MG PO; +PHENERGAN DM SYR1 ML PO; +POLYETHYLENE GL17 GM PO; +TRIMETHOPRIM100 MG PO
[2017-03-16 23:49] LABS: ALBUMIN 3.4 g/dL (3.2-4.8); CHLORIDE 102 mEq/L (99-109); POTASSIUM 5.6 mEq/L (3.7-5.4); SODIUM 137 mEq/L (136-147)
[2017-03-16 23:51] LABS: GLUCOSE 170 mg/dL (70-99); TOTAL PROTEIN 5.9 g/dL (6.4-8.3)
[2017-03-16 23:53] LABS: TOTAL BILIRUBIN 0.4 mg/dL (0.0-1.0)
[2017-03-16 23:55] LABS: ALKALINE PHOSPHATASE 151 IU/L (3-129); CREATININE 3.1 mg/dL (0.6-1.3); GFR ESTIMATE (CALCULATED) 15 mL/min/
[2017-03-16 23:56] LABS: AST (GOT) 36 IU/L (2-34); UREA NITROGEN (BUN) 25 mg/dL (9-23)
[2017-03-16 23:57] LABS: DIRECT BILIRUBIN 0.4 mg/dL (0.0-0.3)
[2017-03-16 23:58] LABS: ALT (GPT) 12 IU/L (3-49); LIPASE 22 U/L (1.0-51.0)
[2017-03-17] LABS: TROP-I INTERPRETATION NEGATIVE; TROPONIN-I 0.03 ng/mL (0.0-0.30)
[2017-03-17 00:42] LABS: BASOPHIL (%) 0.7 % (0-1); BASOPHIL COUNT 0.1 K/uL (0-0.1); EOSINOPHIL (%) 3.2 % (0-5); EOSINOPHIL COUNT 0.4 K/uL (0-0.3); HEMATOCRIT 30.4 % (36.0-46.0); IMMATURE GRANULOCYTE (%) 1.2 % (0.0-0.7); LYMPHOCYTE (%) 18.8 % (15-42); LYMPHOCYTE COUNT 2.3 K/uL (1.0-2.8); MCHC 32.9 G/DL (30.0-36.0); MCV 103.4 FL (83-99); MONOCYTE (%) 18.9 % (3-12); MONOCYTE COUNT 2.3 K/uL (0-0.8); NEUTROPHIL (%) 57.2 % (45-76); RBC DIS.WIDTH-CV 17.2 % (11.8-14.6); RBC DIS.WIDTH-SD 65.1 % (39-53); RED BLOOD COUNT 2.94 M/uL (3.80-5.20); WHITE BLOOD COUNT 12.3 K/uL (4.1-10.2)
[2017-03-17 00:43] LABS: PLATELET COUNT 157 K/uL (156-360)
[2017-03-17 05:55] LABS: HEMATOCRIT 27.2 % (36.0-46.0); HEMOGLOBIN 8.9 G/DL (11.9-15.5); MCHC 32.7 G/DL (30.0-36.0); MCV 103.8 FL (83-99); PLATELET COUNT 143 K/uL (156-360); RBC DIS.WIDTH-CV 17.1 % (11.8-14.6); RBC DIS.WIDTH-SD 65.1 % (39-53); RED BLOOD COUNT 2.62 M/uL (3.80-5.20); WHITE BLOOD COUNT 7.7 K/uL (4.1-10.2)
[2017-03-17 06:04] LABS: CHLORIDE 104 mEq/L (99-109); POTASSIUM 5.3 mEq/L (3.7-5.4); SODIUM 142 mEq/L (136-147)
[2017-03-17 06:06] LABS: GLUCOSE 178 mg/dL (70-99)
[2017-03-17 06:10] LABS: CREATININE 3.4 mg/dL (0.6-1.3); GFR ESTIMATE (CALCULATED) 14 mL/min/
[2017-03-17 06:11] LABS: UREA NITROGEN (BUN) 29 mg/dL (9-23)
[2017-03-17] MEDS ORDERED: TRIMETHOPRIM100 MG PO (08:03)
[2017-03-17] MEDS ORDERED: TYLENOL WITH C1 EACH PO (08:06)
[2017-03-17] MEDS ORDERED: PREDNISONE5 MG PO (08:07)
[2017-03-17 15:07] LABS: APPEARANCE TURBID ((CLEAR)); BILIRUBIN NEGATIVE; BLOOD SMALL; COLOR AMBER ((YELLOW)); GLUCOSE (STRIP) NEGATIVE; KETONES NEGATIVE; LEUKOCYTES MODERATE; NITRITE NEGATIVE; PROTEIN (STRIP) 100; SPECIFIC GRAVITY 1.016 (1.000-1.030); UROBILINOGEN 0.2 MG/DL (0.2-1.0)
[2017-03-17 15:34] LABS: UCUL ADDED? YES; WHITE BLOOD CELLS TNTC /HPF (0-5)
[2017-03-17 21:30] VITALS: BP 142/70
[2017-03-18] VITALS (7 sets, daily range): BP systolic 150–186; BP diastolic 64–71
[2017-03-18 08:53] LABS: HEMATOCRIT 27.7 % (36.0-46.0); HEMOGLOBIN 9.1 G/DL (11.9-15.5); MCH 34.1 PG (29.0-34.0); MCHC 32.9 G/DL (30.0-36.0); MCV 103.7 FL (83-99); NRBC (%) 0.4 /100 WBC (0-0); PLATELET COUNT 166 K/uL (156-360); RBC DIS.WIDTH-CV 17.2 % (11.8-14.6); RBC DIS.WIDTH-SD 65.6 % (39-53); RED BLOOD COUNT 2.67 M/uL (3.80-5.20); WHITE BLOOD COUNT 10.8 K/uL (4.1-10.2)
[2017-03-18 09:16] LABS: CHLORIDE 105 MEQ/L (99-109); GLUCOSE 209 mg/dL (70-99); SODIUM 139 MEQ/L (136-147); UREA NITROGEN (BUN) 33 mg/dL (9-23); VANCOMYCIN, TROUGH 12.9 MCG/ML (10-20)
[2017-03-18 09:56] LABS: BASOPHIL (%) 0.7 % (0-1); BASOPHIL COUNT 0.1 K/uL (0-0.1); EOSINOPHIL COUNT 0.3 K/uL (0-0.3); IMMATURE GRANULOCYTE (%) 2.2 % (0.0-0.7); LYMPHOCYTE (%) 19.6 % (15-42); LYMPHOCYTE COUNT 2.1 K/uL (1.0-2.8); MONOCYTE (%) 15.8 % (3-12); MONOCYTE COUNT 1.7 K/uL (0-0.8); NEUTROPHIL (%) 58.7 % (45-76); NEUTROPHIL COUNT 6.3 K/uL (1.8-6.4)
[2017-03-18 10:01] LABS: CREATININE 4.4 MG/DL (0.6-1.3); GFR ESTIMATE (CALCULATED) 10 mL/min/; POTASSIUM 3.8 MEQ/L (3.7-5.4)
[2017-03-18 10:21] LABS: ALBUMIN 3.2 G/DL (3.2-4.8); PHOSPHORUS 3.4 mg/dL (2.5-4.9)
[2017-03-19 03:54] VITALS: BP 154/68
[2017-03-19 07:10] LABS: BASOPHIL (%) 0.5 % (0-1); BASOPHIL COUNT 0.1 K/uL (0-0.1); EOSINOPHIL (%) 0.9 % (0-5); EOSINOPHIL COUNT 0.1 K/uL (0-0.3); HEMATOCRIT 26.3 % (36.0-46.0); HEMOGLOBIN 8.7 G/DL (11.9-15.5); LYMPHOCYTE (%) 9.4 % (15-42); LYMPHOCYTE COUNT 0.9 K/uL (1.0-2.8); MCH 34.5 PG (29.0-34.0); MCHC 33.1 G/DL (30.0-36.0); MCV 104.4 FL (83-99); MONOCYTE (%) 3.9 % (3-12); MONOCYTE COUNT 0.4 K/uL (0-0.8); NEUTROPHIL (%) 80.3 % (45-76); NEUTROPHIL COUNT 7.9 K/uL (1.8-6.4); NRBC (%) 0.5 /100 WBC (0-0); PLATELET COUNT 147 K/uL (156-360); RBC DIS.WIDTH-SD 64.5 % (39-53); RED BLOOD COUNT 2.52 M/uL (3.80-5.20); WHITE BLOOD COUNT 9.9 K/uL (4.1-10.2)
[2017-03-19 07:45] LABS: CHLORIDE 106 MEQ/L (99-109); GFR ESTIMATE (CALCULATED) 15 mL/min/; GLUCOSE 187 mg/dL (70-99); SODIUM 140 MEQ/L (136-147); UREA NITROGEN (BUN) 17 mg/dL (9-23)
[2017-03-19 07:46] LABS: CREATININE 3.2 MG/DL (0.6-1.3)
[2017-03-19 07:55] VITALS: BP 147/67
[2017-03-19 11:40] VITALS: BP 186/72
[2017-03-19 16:14] VITALS: BP 151/65
[2017-03-19 20:32] VITALS: BP 159/91
[2017-03-20 00:05] VITALS: BP 170/70
[2017-03-20 04:09] VITALS: BP 145/65
[2017-03-20 08:03] LABS: BASOPHIL (%) 0.2 % (0-1); EOSINOPHIL (%) 0.1 % (0-5); HEMATOCRIT 26.6 % (36.0-46.0); IMMATURE GRANULOCYTE (%) 4.9 % (0.0-0.7); LYMPHOCYTE (%) 8.2 % (15-42); LYMPHOCYTE COUNT 1.3 K/uL (1.0-2.8); MCH 34.7 PG (29.0-34.0); MCHC 33.8 G/DL (30.0-36.0); MCV 102.7 FL (83-99); MONOCYTE (%) 7.1 % (3-12); MONOCYTE COUNT 1.1 K/uL (0-0.8); NEUTROPHIL (%) 79.5 % (45-76); NEUTROPHIL COUNT 12.2 K/uL (1.8-6.4); NRBC (%) 1.2 /100 WBC (0-0); RBC DIS.WIDTH-CV 17.2 % (11.8-14.6); RBC DIS.WIDTH-SD 63.1 % (39-53); RED BLOOD COUNT 2.59 M/uL (3.80-5.20); WHITE BLOOD COUNT 15.4 K/uL (4.1-10.2)
[2017-03-20 08:04] LABS: PLATELET COUNT 237 K/uL (156-360)
[2017-03-20 08:25] LABS: ALBUMIN 3.3 G/DL (3.2-4.8); CHLORIDE 107 MEQ/L (99-109); GLUCOSE 181 mg/dL (70-99); POTASSIUM 3.7 MEQ/L (3.7-5.4); SODIUM 140 MEQ/L (136-147); VANCOMYCIN, TROUGH 17.7 MCG/ML (10-20)
[2017-03-20 08:32] LABS: GFR ESTIMATE (CALCULATED) 11 mL/min/; PHOSPHORUS 4.6 mg/dL (2.5-4.9); UREA NITROGEN (BUN) 27 mg/dL (9-23)
[2017-03-20 11:29] LABS: TROP-I INTERPRETATION NEGATIVE; TROPONIN-I 0.02 ng/mL (0.0-0.30)
[2017-03-20 16:11] VITALS: BP 167/67
[2017-03-20 20:06] VITALS: BP 183/77
[2017-03-21 00:22] VITALS: BP 165/69
[2017-03-21 07:34] LABS: ALBUMIN 3.5 G/DL (3.2-4.8); ALKALINE PHOSPHATASE 141 IU/L (3-129); ALT (GPT) 58 IU/L (3-49); AST (GOT) 73 IU/L (2-34); CHLORIDE 101 MEQ/L (99-109); GFR ESTIMATE (CALCULATED) 14 mL/min/; GLUCOSE 172 mg/dL (70-99); POTASSIUM 3.4 MEQ/L (3.7-5.4); SODIUM 139 MEQ/L (136-147); TOTAL BILIRUBIN 0.5 MG/DL (0.0-1.0); TOTAL PROTEIN 5.6 G/DL (6.4-8.3); UREA NITROGEN (BUN) 24 mg/dL (9-23)
[2017-03-21 07:37] LABS: CREATININE 3.3 MG/DL (0.6-1.3)
[2017-03-21 08:38] VITALS: BP 175/67
[2017-03-21] MEDS ORDERED: PREDNISONE20 MG PO ×2 (10:21→12:16)
[2017-03-21] MEDS ORDERED: CONSTULOSE10 GM/15 M PO ×2 (10:41→12:16)
[2017-03-21 12:36] VITALS: BP 168/72
== END 2017-03-21 14:21 | disposition home or self-care (01) | DRG 190 ==
LOC: EME → EDBD 22:29 → 5SOUTH 03-17 03:55 → EDOF 03-17 03:55 → ENRESERV 03-17 03:58 → 5SOUTH 03-17 21:09 → ENPENDDIS 03-21 → 5SOUTH 03-21 14:21
PROVIDERS: Emergency Medicine; Hospitalist; Internal Medicine; Internal Medicine Nephrology
DX: J44.0 Chronic obstructive pulmonary disease with (acute) lower respiratory infection (principal); J20.9 Acute bronchitis, unspecified; G30.9 Alzheimer's disease, unspecified; F02.80 Dementia in other diseases classified elsewhere, unspecified severity, without behavioral disturbance, psychotic disturbance, mood disturbance, and anxiety; K21.9 Gastro-esophageal reflux disease without esophagitis; I13.2 Hypertensive heart and chronic kidney disease with heart failure and with stage 5 chronic kidney disease, or end stage renal disease; I50.32 Chronic diastolic (congestive) heart failure; E87.2 Acidosis; R18.8 Other ascites; K80.20 Calculus of gallbladder without cholecystitis without obstruction; I25.10 Atherosclerotic heart disease of native coronary artery without angina pectoris; G47.33 Obstructive sleep apnea (adult) (pediatric); I27.20 Pulmonary hypertension, unspecified; E11.22 Type 2 diabetes mellitus with diabetic chronic kidney disease; E87.5 Hyperkalemia; E78.5 Hyperlipidemia, unspecified; R32 Unspecified urinary incontinence; G89.29 Other chronic pain; D53.9 Nutritional anemia, unspecified; B95.2 Enterococcus as the cause of diseases classified elsewhere; K76.89 Other specified diseases of liver; N18.6 End stage renal disease; B37.49 Other urogenital candidiasis; E86.0 Dehydration; F41.9 Anxiety disorder, unspecified; Z16.21 Resistance to vancomycin; G47.00 Insomnia, unspecified; J45.901 Unspecified asthma with (acute) exacerbation; Z95.2 Presence of prosthetic heart valve; Z99.2 Dependence on renal dialysis; Z95.1 Presence of aortocoronary bypass graft; Z90.710 Acquired absence of both cervix and uterus; Z87.440 Personal history of urinary (tract) infections; Z86.73 Personal history of transient ischemic attack (TIA), and cerebral infarction without residual deficits; Z83.3 Family history of diabetes mellitus; Z80.1 Family history of malignant neoplasm of trachea, bronchus and lung; Z80.0 Family history of malignant neoplasm of digestive organs; Z79.899 Other long term (current) drug therapy; Z79.82 Long term (current) use of aspirin; I25.2 Old myocardial infarction
CPT/HCPCS: 70450; 70551; 71045; 74176; 76705; 80048; 80053; 80069; 80076; 80202; 81003; 82140; 83605; 83690; 83880; 84484; 85025; 85027; 87040; 87070; 87086; 87106; 87205; 87641; 93005; 94640; 94640 76; 94660; 99202; 99281; 99285; J0692; J0696; J0881; J1644; J2405; J2930; J3370; J7030; J7040; J7512

== ENCOUNTER 2017-03-30 16:24 | Observation (INO) | payer OTHER ==
[~2017-03-30] VITALS: Ht 149.9 cm; Wt 57.4 kg
[~2017-03-30 16:24] MED LIST changes: +CONSTULOSE10 GM/15 M PO; +PREDNISONE5 MG PO; +TYLENOL WITH C1 EACH PO
[2017-03-30 17:22] LABS: ALBUMIN 3.7 g/dL (3.2-4.8); CHLORIDE 95 mEq/L (99-109); POTASSIUM 3.3 mEq/L (3.7-5.4); SODIUM 137 mEq/L (136-147)
[2017-03-30 17:24] LABS: GLUCOSE 245 mg/dL (70-99); TOTAL PROTEIN 6.1 g/dL (6.4-8.3)
[2017-03-30 17:25] LABS: HEMATOCRIT 32.2 % (36.0-46.0); HEMOGLOBIN 10.6 G/DL (11.9-15.5); MCH 35.7 PG (29.0-34.0); MCHC 32.9 G/DL (30.0-36.0); NRBC (%) 1.8 /100 WBC (0-0); RBC DIS.WIDTH-CV 22.5 % (11.8-14.6); RBC DIS.WIDTH-SD 83.9 % (39-53); RED BLOOD COUNT 2.97 M/uL (3.80-5.20); WHITE BLOOD COUNT 12.8 K/uL (4.1-10.2)
[2017-03-30 17:26] LABS: TOTAL BILIRUBIN 0.8 mg/dL (0.0-1.0)
[2017-03-30 17:28] LABS: ALKALINE PHOSPHATASE 102 IU/L (3-129); CREATININE 2.9 mg/dL (0.6-1.3); GFR ESTIMATE (CALCULATED) 16 mL/min/
[2017-03-30 17:29] LABS: UREA NITROGEN (BUN) 21 mg/dL (9-23)
[2017-03-30 17:30] LABS: AST (GOT) 18 IU/L (2-34)
[2017-03-30 17:31] LABS: ALT (GPT) 24 IU/L (3-49)
[2017-03-30 17:37] LABS: TROP-I INTERPRETATION NEGATIVE; TROPONIN-I 0.08 ng/mL (0.0-0.30)
[2017-03-30 17:51] LABS: APPEARANCE CLOUDY ((CLEAR)); BILIRUBIN SMALL; BLOOD SMALL; COLOR AMBER ((YELLOW)); GLUCOSE (STRIP) NEGATIVE; KETONES NEGATIVE; LEUKOCYTES LARGE; NITRITE NEGATIVE; PROTEIN (STRIP) >=500; UROBILINOGEN 0.2 MG/DL (0.2-1.0)
[2017-03-30 18:08] LABS: ABS NEUTROPHIL COUNT 11.6; ANISOCYTOSIS 2+; ATYPICAL LYMPHOCYTE 0.9 %; BAND NEUTROPHILS 4.6 % (0-8.0); EOSINOPHIL ABS CT 0; LYMPHOCYTES 1.9 % (15.0-45.0); MACROCYTES 2+; MONOCYTES 5.6 % (0-9.0); MYELOCYTES 0.9 %; NUCLEATED RBC'S 1.9; OVALOCYTES 1+; PLAT.SUFFICIENCY ADEQUATE; PLATELET COUNT 166 K/uL (156-360); POLYCHROMASIA 1+; SEG.NEUTROPHILS 86.1 % (46.0-76.0); SPHEROCYTES 1+; TEAR DROP CELLS 1+
[2017-03-30 18:09] LABS: MCV 108.4 FL (83-99)
[2017-03-30 18:53] LABS: EPITHELIAL CELLS 2+ /HPF; MUCUS NONE SEEN /LPF; WHITE BLOOD CELLS 30-40 /HPF (0-5)
[2017-03-30 18:54] LABS: BACTERIA 2+ /HPF; OTHER BUDDING YEAST; UCUL ADDED? YES
[2017-03-30] MEDS ORDERED: ANTI-ITCH28 G1 TP (20:22)
[2017-03-30] MEDS ORDERED: CONSTULOSE10 GM/15 M PO (20:23)
[2017-03-30] MEDS ORDERED: DELTASONE20 M1 PO ×2 (20:26)
[2017-03-30 23:09] VITALS: BP 156/65
[2017-03-31 04:00] VITALS: BP 147/65
[2017-03-31 07:24] VITALS: BP 171/60
[2017-03-31 11:37] VITALS: BP 150/98
[2017-03-31 16:00] VITALS: BP 169/70
== END 2017-03-31 18:48 | disposition home or self-care (01) ==
LOC: EME 16:24 → EDOF 21:04 → 5WEST 21:04 → EDOF 21:04 → ENRESERV 21:14 → 5WEST 22:44
PROVIDERS: Emergency Medicine Emergency Medical Services; Hospitalist
DX: R41.0 Disorientation, unspecified (principal); K59.00 Constipation, unspecified; Z87.440 Personal history of urinary (tract) infections; R32 Unspecified urinary incontinence; J44.9 Chronic obstructive pulmonary disease, unspecified; J45.40 Moderate persistent asthma, uncomplicated; J96.10 Chronic respiratory failure, unspecified whether with hypoxia or hypercapnia; Z99.81 Dependence on supplemental oxygen; G47.33 Obstructive sleep apnea (adult) (pediatric); I25.10 Atherosclerotic heart disease of native coronary artery without angina pectoris; I13.2 Hypertensive heart and chronic kidney disease with heart failure and with stage 5 chronic kidney disease, or end stage renal disease; I50.32 Chronic diastolic (congestive) heart failure; N18.6 End stage renal disease; Z99.2 Dependence on renal dialysis; E78.5 Hyperlipidemia, unspecified; G30.9 Alzheimer's disease, unspecified; F02.80 Dementia in other diseases classified elsewhere, unspecified severity, without behavioral disturbance, psychotic disturbance, mood disturbance, and anxiety; Z86.718 Personal history of other venous thrombosis and embolism; K21.9 Gastro-esophageal reflux disease without esophagitis; Z95.1 Presence of aortocoronary bypass graft; Z95.2 Presence of prosthetic heart valve; Z79.82 Long term (current) use of aspirin; M19.90 Unspecified osteoarthritis, unspecified site; E11.65 Type 2 diabetes mellitus with hyperglycemia; E11.22 Type 2 diabetes mellitus with diabetic chronic kidney disease; Z90.710 Acquired absence of both cervix and uterus; Z88.8 Allergy status to other drugs, medicaments and biological substances; Z80.1 Family history of malignant neoplasm of trachea, bronchus and lung; Z80.0 Family history of malignant neoplasm of digestive organs; D63.8 Anemia in other chronic diseases classified elsewhere; Z86.73 Personal history of transient ischemic attack (TIA), and cerebral infarction without residual deficits; Z79.84 Long term (current) use of oral hypoglycemic drugs
CPT/HCPCS: 71045; 80053; 81003; 82010; 82948; 83880; 84484; 85025; 87106; 93005; 94640; 99202; G0378; J0696; J1644; J2405; J7512

== ENCOUNTER 2017-04-26 19:29 | Inpatient (IN) | payer OTHER ==
[~2017-04-26] VITALS: Ht 149.9 cm; Wt 56.2 kg
[~2017-04-26 19:29] MED LIST changes: +DELTASONE20 M1 PO
[2017-04-26 22:28] LABS: HEMATOCRIT 35.8 % (36.0-46.0); HEMOGLOBIN 11.4 G/DL (11.9-15.5); MCH 33.6 PG (29.0-34.0); MCHC 31.8 G/DL (30.0-36.0); MCV 105.6 FL (83-99); RBC DIS.WIDTH-CV 17.1 % (11.8-14.6); RBC DIS.WIDTH-SD 65.8 % (39-53); RED BLOOD COUNT 3.39 M/uL (3.80-5.20); WHITE BLOOD COUNT 13.4 K/uL (4.1-10.2)
[2017-04-26 22:29] LABS: PLATELET COUNT 241 K/uL (156-360)
[2017-04-26 22:52] LABS: TROP-I INTERPRETATION NEGATIVE; TROPONIN-I 0.29 ng/mL (0.0-0.30)
[2017-04-26 22:53] LABS: ALBUMIN 3.3 G/DL (3.2-4.8); CHLORIDE 94 MEQ/L (99-109); POTASSIUM 3.8 MEQ/L (3.7-5.4); SODIUM 135 MEQ/L (136-147); TOTAL BILIRUBIN 0.5 MG/DL (0.0-1.0)
[2017-04-26 22:56] LABS: APPEARANCE TURBID ((CLEAR)); BILIRUBIN NEGATIVE; BLOOD LARGE; COLOR YELLOW ((YELLOW)); GLUCOSE (STRIP) NEGATIVE; KETONES NEGATIVE; LEUKOCYTES MODERATE; NITRITE NEGATIVE; PROTEIN (STRIP) 300; UROBILINOGEN 0.2 MG/DL (0.2-1.0)
[2017-04-26 22:59] LABS: ALKALINE PHOSPHATASE 100 IU/L (3-129); ALT (GPT) 8 IU/L (3-49); AST (GOT) 15 IU/L (2-34); CREATININE 4.7 MG/DL (0.6-1.3); GFR ESTIMATE (CALCULATED) 9 mL/min/; GLUCOSE 101 mg/dL (70-99); TOTAL PROTEIN 5.8 G/DL (6.4-8.3); UREA NITROGEN (BUN) 24 mg/dL (9-23)
[2017-04-26 23:36] LABS: UCUL ADDED? YES
[2017-04-27 09:41] LABS: BASOPHIL (%) 0.8 % (0-1); BASOPHIL COUNT 0.1 K/uL (0-0.1); EOSINOPHIL (%) 0.8 % (0-5); EOSINOPHIL COUNT 0.1 K/uL (0-0.3); HEMATOCRIT 34.8 % (36.0-46.0); IMMATURE GRANULOCYTE (%) 0.6 % (0.0-0.7); LYMPHOCYTE (%) 15.4 % (15-42); LYMPHOCYTE COUNT 1.9 K/uL (1.0-2.8); MCH 33.1 PG (29.0-34.0); MCHC 31.6 G/DL (30.0-36.0); MCV 104.8 FL (83-99); MONOCYTE (%) 12.5 % (3-12); MONOCYTE COUNT 1.5 K/uL (0-0.8); NEUTROPHIL (%) 69.9 % (45-76); NEUTROPHIL COUNT 8.6 K/uL (1.8-6.4); PLATELET COUNT 232 K/uL (156-360); RBC DIS.WIDTH-CV 17.1 % (11.8-14.6); RBC DIS.WIDTH-SD 66.4 % (39-53); RED BLOOD COUNT 3.32 M/uL (3.80-5.20); WHITE BLOOD COUNT 12.4 K/uL (4.1-10.2)
[2017-04-27 09:53] LABS: ALBUMIN 3.1 G/DL (3.2-4.8); CHLORIDE 94 MEQ/L (99-109); POTASSIUM 4.2 MEQ/L (3.7-5.4); SODIUM 133 MEQ/L (136-147)
[2017-04-27 10:01] LABS: CREATININE 5.1 MG/DL (0.6-1.3); GFR ESTIMATE (CALCULATED) 9 mL/min/; GLUCOSE 165 mg/dL (70-99); PHOSPHORUS 3.8 mg/dL (2.5-4.9); UREA NITROGEN (BUN) 28 mg/dL (9-23)
[2017-04-27 14:35] VITALS: BP 136/75
[2017-04-27 20:15] VITALS: BP 151/62
[2017-04-27 23:42] VITALS: BP 139/63
[2017-04-28 03:38] VITALS: BP 137/61
[2017-04-28 06:03] LABS: BASOPHIL COUNT 0.1 K/uL (0-0.1); EOSINOPHIL (%) 0.8 % (0-5); EOSINOPHIL COUNT 0.1 K/uL (0-0.3); HEMATOCRIT 35.7 % (36.0-46.0); HEMOGLOBIN 11.2 G/DL (11.9-15.5); IMMATURE GRANULOCYTE (%) 0.9 % (0.0-0.7); LYMPHOCYTE (%) 17.1 % (15-42); LYMPHOCYTE COUNT 1.6 K/uL (1.0-2.8); MCH 33.6 PG (29.0-34.0); MCHC 31.4 G/DL (30.0-36.0); MCV 107.2 FL (83-99); MONOCYTE (%) 17.5 % (3-12); MONOCYTE COUNT 1.6 K/uL (0-0.8); NEUTROPHIL (%) 62.7 % (45-76); NEUTROPHIL COUNT 5.7 K/uL (1.8-6.4); PLATELET COUNT 218 K/uL (156-360); RBC DIS.WIDTH-CV 17.2 % (11.8-14.6); RBC DIS.WIDTH-SD 67.7 % (39-53); RED BLOOD COUNT 3.33 M/uL (3.80-5.20); WHITE BLOOD COUNT 9.1 K/uL (4.1-10.2)
[2017-04-28 06:26] LABS: CHLORIDE 98 MEQ/L (99-109); GFR ESTIMATE (CALCULATED) 14 mL/min/; GLUCOSE 145 mg/dL (70-99); POTASSIUM 4.1 MEQ/L (3.7-5.4); SODIUM 137 MEQ/L (136-147); UREA NITROGEN (BUN) 15 mg/dL (9-23)
[2017-04-28 06:27] LABS: CREATININE 3.4 MG/DL (0.6-1.3)
[2017-04-28 07:07] VITALS: BP 144/65
[2017-04-28 11:16] VITALS: BP 1252/70
[2017-04-28 15:45] VITALS: BP 140/65
[2017-04-28 19:48] VITALS: BP 155/74
[2017-04-28 23:27] VITALS: BP 158/67
[2017-04-29 03:49] VITALS: BP 154/70
[2017-04-29 06:41] LABS: HEMATOCRIT 34.4 % (36.0-46.0); HEMOGLOBIN 10.4 G/DL (11.9-15.5); MCH 32.5 PG (29.0-34.0); MCHC 30.2 G/DL (30.0-36.0); MCV 107.5 FL (83-99); PLATELET COUNT 216 K/uL (156-360); RBC DIS.WIDTH-CV 17.4 % (11.8-14.6); RBC DIS.WIDTH-SD 69.3 % (39-53); WHITE BLOOD COUNT 10.7 K/uL (4.1-10.2)
[2017-04-29 07:01] LABS: CHLORIDE 97 MEQ/L (99-109); GFR ESTIMATE (CALCULATED) 10 mL/min/; GLUCOSE 172 mg/dL (70-99); SODIUM 134 MEQ/L (136-147)
[2017-04-29 07:04] LABS: CREATININE 4.4 MG/DL (0.6-1.3); UREA NITROGEN (BUN) 23 mg/dL (9-23)
[2017-04-29 07:24] VITALS: BP 143/62
[2017-04-29 11:19] VITALS: BP 132/63
[2017-04-29 16:32] VITALS: BP 142/61
[2017-04-29 20:30] VITALS: BP 146/67
[2017-04-29 23:48] VITALS: BP 134/63
[2017-04-30 03:59] VITALS: BP 148/67
[2017-04-30 05:42] LABS: HEMATOCRIT 35.4 % (36.0-46.0); MCH 33.3 PG (29.0-34.0); MCHC 31.1 G/DL (30.0-36.0); MCV 107.3 FL (83-99); PLATELET COUNT 198 K/uL (156-360); RBC DIS.WIDTH-CV 17.4 % (11.8-14.6); WHITE BLOOD COUNT 11.5 K/uL (4.1-10.2)
[2017-04-30 06:15] LABS: CHLORIDE 98 MEQ/L (99-109); GFR ESTIMATE (CALCULATED) 15 mL/min/; POTASSIUM 4.3 MEQ/L (3.7-5.4); SODIUM 137 MEQ/L (136-147); UREA NITROGEN (BUN) 15 mg/dL (9-23)
[2017-04-30 06:16] LABS: CREATININE 3.2 MG/DL (0.6-1.3); GLUCOSE 94 mg/dL (70-99)
[2017-04-30 07:20] VITALS: BP 128/54
[2017-04-30] MEDS ORDERED: BACTRIM,SEPT1 TABLE1 PO (11:10)
[2017-04-30 11:30] VITALS: BP 116/53
[2017-04-30 11:39] VITALS: BP 158/71
[2017-04-30 15:20] VITALS: BP 163/72
[2017-04-30 19:50] VITALS: BP 127/58
[2017-05-01] VITALS (7 sets, daily range): BP systolic 103–143; BP diastolic 58–84
[2017-05-01 06:33] LABS: HEMATOCRIT 36.3 % (36.0-46.0); HEMOGLOBIN 11.1 G/DL (11.9-15.5); MCH 32.9 PG (29.0-34.0); MCHC 30.6 G/DL (30.0-36.0); MCV 107.7 FL (83-99); PLATELET COUNT 191 K/uL (156-360); RBC DIS.WIDTH-CV 17.7 % (11.8-14.6); RBC DIS.WIDTH-SD 70.1 % (39-53); RED BLOOD COUNT 3.37 M/uL (3.80-5.20); WHITE BLOOD COUNT 11.8 K/uL (4.1-10.2)
[2017-05-01 07:07] LABS: CHLORIDE 97 MEQ/L (99-109); GFR ESTIMATE (CALCULATED) 10 mL/min/; GLUCOSE 114 mg/dL (70-99); POTASSIUM 4.5 MEQ/L (3.7-5.4); SODIUM 137 MEQ/L (136-147)
[2017-05-01 07:09] LABS: CREATININE 4.3 MG/DL (0.6-1.3); UREA NITROGEN (BUN) 23 mg/dL (9-23)
[2017-05-01 08:24] LABS: INTER. NORMALIZED RATIO 1.3
[2017-05-01 08:27] LABS: PTT 34.7 SEC (25-37)
[2017-05-01 16:16] LABS: TYPE OF FLUID PARACENTESIS
[2017-05-01 16:45] LABS: BODY FLUID PROTEIN 3.3 G/DL
[2017-05-01 16:56] LABS: APPEARANCE HAZY-YELLOW; BODY FLUID EOSINOPHILS 0 % (0-25); BODY FLUID RBC'S 1000 /MM^3 (0-100); BODY FLUID WBC'S 1163 /MM^3 (0-500); MONONUCLEAR WBC'S 23 %; POLYNUCLEAR WBC'S 77 % (0-25)
[2017-05-02 06:16] LABS: BASOPHIL (%) 1.1 % (0-1); BASOPHIL COUNT 0.1 K/uL (0-0.1); EOSINOPHIL (%) 1.3 % (0-5); EOSINOPHIL COUNT 0.2 K/uL (0-0.3); HEMATOCRIT 36.2 % (36.0-46.0); HEMOGLOBIN 11.2 G/DL (11.9-15.5); LYMPHOCYTE (%) 16.6 % (15-42); LYMPHOCYTE COUNT 1.9 K/uL (1.0-2.8); MCH 32.7 PG (29.0-34.0); MCHC 30.9 G/DL (30.0-36.0); MCV 105.5 FL (83-99); MONOCYTE (%) 12.9 % (3-12); MONOCYTE COUNT 1.5 K/uL (0-0.8); NEUTROPHIL (%) 67.1 % (45-76); NEUTROPHIL COUNT 7.8 K/uL (1.8-6.4); PLATELET COUNT 169 K/uL (156-360); RBC DIS.WIDTH-CV 17.8 % (11.8-14.6); RED BLOOD COUNT 3.43 M/uL (3.80-5.20); WHITE BLOOD COUNT 11.7 K/uL (4.1-10.2)
[2017-05-02 06:56] LABS: CHLORIDE 98 MEQ/L (99-109); GFR ESTIMATE (CALCULATED) 13 mL/min/; GLUCOSE 123 mg/dL (70-99); POTASSIUM 4.4 MEQ/L (3.7-5.4); SODIUM 135 MEQ/L (136-147); UREA NITROGEN (BUN) 18 mg/dL (9-23)
[2017-05-02 07:00] LABS: CREATININE 3.5 MG/DL (0.6-1.3)
[2017-05-02 07:28] VITALS: BP 137/64
[2017-05-02 16:15] VITALS: BP 140/63
[2017-05-02 23:26] VITALS: BP 116/69
[2017-05-03 06:52] LABS: HEMOGLOBIN 11.4 G/DL (11.9-15.5); MCH 33.5 PG (29.0-34.0); MCHC 31.7 G/DL (30.0-36.0); MCV 105.9 FL (83-99); PLATELET COUNT 172 K/uL (156-360); RBC DIS.WIDTH-CV 17.8 % (11.8-14.6); RBC DIS.WIDTH-SD 68.7 % (39-53); WHITE BLOOD COUNT 15.3 K/uL (4.1-10.2)
[2017-05-03 08:15] VITALS: BP 147/60
[2017-05-03 16:34] VITALS: BP 140/67
[2017-05-03 23:34] VITALS: BP 151/66
[2017-05-04 06:33] LABS: BASOPHIL COUNT 0.1 K/uL (0-0.1); EOSINOPHIL (%) 1.7 % (0-5); EOSINOPHIL COUNT 0.2 K/uL (0-0.3); HEMATOCRIT 35.4 % (36.0-46.0); HEMOGLOBIN 11.1 G/DL (11.9-15.5); IMMATURE GRANULOCYTE (%) 1.2 % (0.0-0.7); LYMPHOCYTE (%) 15.1 % (15-42); LYMPHOCYTE COUNT 2.2 K/uL (1.0-2.8); MCH 32.6 PG (29.0-34.0); MCHC 31.4 G/DL (30.0-36.0); MCV 104.1 FL (83-99); MONOCYTE (%) 10.6 % (3-12); MONOCYTE COUNT 1.5 K/uL (0-0.8); NEUTROPHIL (%) 70.4 % (45-76); NEUTROPHIL COUNT 10.2 K/uL (1.8-6.4); PLATELET COUNT 179 K/uL (156-360); RBC DIS.WIDTH-CV 17.4 % (11.8-14.6); RBC DIS.WIDTH-SD 66.7 % (39-53); WHITE BLOOD COUNT 14.5 K/uL (4.1-10.2)
[2017-05-04 06:57] LABS: CHLORIDE 93 MEQ/L (99-109); GLUCOSE 99 mg/dL (70-99); SODIUM 132 MEQ/L (136-147)
[2017-05-04 07:07] LABS: CREATININE 5.5 MG/DL (0.6-1.3); GFR ESTIMATE (CALCULATED) 8 mL/min/; POTASSIUM 5.3 MEQ/L (3.7-5.4); UREA NITROGEN (BUN) 35 mg/dL (9-23)
[2017-05-04 16:47] VITALS: BP 120/51
[2017-05-05 00:10] VITALS: BP 146/82
[2017-05-05 07:03] LABS: BASOPHIL (%) 1.1 % (0-1); BASOPHIL COUNT 0.1 K/uL (0-0.1); EOSINOPHIL (%) 2.3 % (0-5); EOSINOPHIL COUNT 0.3 K/uL (0-0.3); HEMATOCRIT 37.5 % (36.0-46.0); HEMOGLOBIN 11.7 G/DL (11.9-15.5); IMMATURE GRANULOCYTE (%) 1.3 % (0.0-0.7); LYMPHOCYTE (%) 18.5 % (15-42); LYMPHOCYTE COUNT 2.1 K/uL (1.0-2.8); MCH 33.1 PG (29.0-34.0); MCHC 31.2 G/DL (30.0-36.0); MCV 105.9 FL (83-99); MONOCYTE (%) 13.6 % (3-12); MONOCYTE COUNT 1.6 K/uL (0-0.8); NEUTROPHIL (%) 63.2 % (45-76); NEUTROPHIL COUNT 7.3 K/uL (1.8-6.4); PLATELET COUNT 185 K/uL (156-360); RBC DIS.WIDTH-CV 17.4 % (11.8-14.6); RBC DIS.WIDTH-SD 68.2 % (39-53); RED BLOOD COUNT 3.54 M/uL (3.80-5.20); WHITE BLOOD COUNT 11.5 K/uL (4.1-10.2)
[2017-05-05 07:37] LABS: CHLORIDE 98 MEQ/L (99-109); GLUCOSE 90 mg/dL (70-99); UREA NITROGEN (BUN) 16 mg/dL (9-23)
[2017-05-05 07:40] LABS: CREATININE 3.6 MG/DL (0.6-1.3); GFR ESTIMATE (CALCULATED) 13 mL/min/
[2017-05-05 07:41] LABS: SODIUM 139 MEQ/L (136-147)
[2017-05-05 08:01] VITALS: BP 153/65
[2017-05-05 15:48] VITALS: BP 156/65
[2017-05-06 00:05] VITALS: BP 146/97
[2017-05-06 06:19] LABS: BASOPHIL (%) 1.2 % (0-1); BASOPHIL COUNT 0.1 K/uL (0-0.1); EOSINOPHIL (%) 2.1 % (0-5); EOSINOPHIL COUNT 0.3 K/uL (0-0.3); HEMOGLOBIN 10.9 G/DL (11.9-15.5); IMMATURE GRANULOCYTE (%) 1.2 % (0.0-0.7); LYMPHOCYTE (%) 18.3 % (15-42); LYMPHOCYTE COUNT 2.2 K/uL (1.0-2.8); MCH 32.5 PG (29.0-34.0); MCHC 31.1 G/DL (30.0-36.0); MCV 104.5 FL (83-99); MONOCYTE (%) 12.2 % (3-12); MONOCYTE COUNT 1.5 K/uL (0-0.8); NEUTROPHIL COUNT 7.8 K/uL (1.8-6.4); PLATELET COUNT 184 K/uL (156-360); RBC DIS.WIDTH-CV 17.4 % (11.8-14.6); RED BLOOD COUNT 3.35 M/uL (3.80-5.20)
[2017-05-06 07:31] LABS: CHLORIDE 98 MEQ/L (99-109); GFR ESTIMATE (CALCULATED) 10 mL/min/; GLUCOSE 99 mg/dL (70-99); SODIUM 139 MEQ/L (136-147); UREA NITROGEN (BUN) 24 mg/dL (9-23)
[2017-05-06 07:34] LABS: CREATININE 4.4 MG/DL (0.6-1.3)
[2017-05-06 12:10] VITALS: BP 143/67
[2017-05-06 16:50] VITALS: BP 166/72
== END 2017-05-06 16:30 | disposition home or self-care (01) | DRG 371 ==
LOC: DELPENDDIS → EME → EDBD 19:29 → 5EAST 04-27 02:18 → EDOF 04-27 02:18 → ENRESERV 04-27 02:21 → 5EAST 04-27 14:15 → ENPENDDIS 04-30 → 5EAST 05-06 16:30
PROVIDERS: Emergency Medicine; Hospitalist; Internal Medicine Gastroenterology; Internal Medicine Nephrology; Physician Assistant
PROC: 5A1D70Z Performance of Urinary Filtration, Intermittent, Less than 6 Hours Per Day (ICD-10-PCS; principal; 2017-04-27)
PROC: 0W9G3ZZ Drainage of Peritoneal Cavity, Percutaneous Approach (ICD-10-PCS; 2017-05-01)
DX: K65.2 Spontaneous bacterial peritonitis (principal); N39.0 Urinary tract infection, site not specified; G93.41 Metabolic encephalopathy; G47.33 Obstructive sleep apnea (adult) (pediatric); I25.10 Atherosclerotic heart disease of native coronary artery without angina pectoris; I50.32 Chronic diastolic (congestive) heart failure; I13.2 Hypertensive heart and chronic kidney disease with heart failure and with stage 5 chronic kidney disease, or end stage renal disease; N18.6 End stage renal disease; Z99.2 Dependence on renal dialysis; E11.22 Type 2 diabetes mellitus with diabetic chronic kidney disease; E78.5 Hyperlipidemia, unspecified; E87.1 Hypo-osmolality and hyponatremia; F03.90 Unspecified dementia, unspecified severity, without behavioral disturbance, psychotic disturbance, mood disturbance, and anxiety; K21.9 Gastro-esophageal reflux disease without esophagitis; J43.9 Emphysema, unspecified; Z86.73 Personal history of transient ischemic attack (TIA), and cerebral infarction without residual deficits; Z95.1 Presence of aortocoronary bypass graft; K42.9 Umbilical hernia without obstruction or gangrene; D64.9 Anemia, unspecified; Z87.440 Personal history of urinary (tract) infections; Z95.3 Presence of xenogenic heart valve; K74.60 Unspecified cirrhosis of liver; Z79.4 Long term (current) use of insulin; B96.89 Other specified bacterial agents as the cause of diseases classified elsewhere; F41.9 Anxiety disorder, unspecified
CPT/HCPCS: 49083; 70450; 71045; 74018; 74176; 76705; 80048; 80053; 80069; 81003; 82140; 82948; 83605; 84157; 84484; 85025; 85027; 85610; 85730; 87070; 87075; 87077; 87086; 87186; 87205; 88108; 88305; 89051; 93005; 94640 76; 99202; 99281; 99285; J0696; J1580; J1644; J1815; J2543; J7050

== ENCOUNTER 2017-06-07 17:36 | Inpatient (IN) | payer OTHER ==
[~2017-06-07] VITALS: Ht 132.1 cm; Wt 54.1 kg
[~2017-06-07 17:36] MED LIST changes: +BACTRIM,SEPT1 TABLE1 PO
[2017-06-07 18:52] LABS: BASOPHIL (%) 0.4 % (0-1); BASOPHIL COUNT 0.1 K/uL (0-0.1); EOSINOPHIL (%) 0.8 % (0-5); EOSINOPHIL COUNT 0.2 K/uL (0-0.3); HEMATOCRIT 38.9 % (36.0-46.0); HEMOGLOBIN 12.7 G/DL (11.9-15.5); IMMATURE GRANULOCYTE (%) 0.5 % (0.0-0.7); LYMPHOCYTE (%) 9.7 % (15-42); LYMPHOCYTE COUNT 1.9 K/uL (1.0-2.8); MCH 32.2 PG (29.0-34.0); MCHC 32.6 G/DL (30.0-36.0); MCV 98.7 FL (83-99); MONOCYTE (%) 7.8 % (3-12); MONOCYTE COUNT 1.6 K/uL (0-0.8); NEUTROPHIL (%) 80.8 % (45-76); NEUTROPHIL COUNT 16.1 K/uL (1.8-6.4); PLATELET COUNT 186 K/uL (156-360); RBC DIS.WIDTH-CV 15.3 % (11.8-14.6); RBC DIS.WIDTH-SD 56.2 % (39-53); RED BLOOD COUNT 3.94 M/uL (3.80-5.20); WHITE BLOOD COUNT 19.9 K/uL (4.1-10.2)
[2017-06-07 18:57] LABS: ALBUMIN 3.5 g/dL (3.2-4.8); CHLORIDE 93 mEq/L (99-109); POTASSIUM 3.9 mEq/L (3.7-5.4); SODIUM 136 mEq/L (136-147)
[2017-06-07 18:59] LABS: GLUCOSE 101 mg/dL (70-99); TOTAL PROTEIN 6.3 g/dL (6.4-8.3)
[2017-06-07 19:01] LABS: TOTAL BILIRUBIN 0.6 mg/dL (0.0-1.0)
[2017-06-07 19:03] LABS: ALKALINE PHOSPHATASE 115 IU/L (3-129); CREATININE 4.5 mg/dL (0.6-1.3); GFR ESTIMATE (CALCULATED) 10 mL/min/
[2017-06-07 19:04] LABS: UREA NITROGEN (BUN) 29 mg/dL (9-23)
[2017-06-07 19:05] LABS: AST (GOT) 15 IU/L (2-34)
[2017-06-07 19:06] LABS: ALT (GPT) 7 IU/L (3-49); LIPASE 12 U/L (1.0-51.0)
[2017-06-07 19:12] LABS: TROP-I INTERPRETATION NEGATIVE; TROPONIN-I 0.04 ng/mL (0.0-0.30)
[2017-06-07 21:43] LABS: INTER. NORMALIZED RATIO 1.3
[2017-06-07 21:45] LABS: PTT 35.4 SEC (25-37)
[2017-06-07] MEDS ORDERED: PROBIOTIC1 EAC7 PO (22:22)
[2017-06-07] MEDS ORDERED: ZYVOX600 MG PO (22:23)
[2017-06-07 22:53] LABS: TYPE OF FLUID PARACENTESIS
[2017-06-08 00:57] VITALS: BP 162/72
[2017-06-08 01:00] LABS: APPEARANCE CLOUDY; BODY FLUID RBC'S 4000 /MM^3 (0-100); BODY FLUID WBC'S 1417 /MM^3 (0-500)
[2017-06-08 03:45] VITALS: BP 151/65
[2017-06-08 05:05] LABS: MONONUCLEAR WBC'S 86 %; POLYNUCLEAR WBC'S 14 % (0-25)
[2017-06-08 07:21] LABS: HEMATOCRIT 37.6 % (36.0-46.0); HEMOGLOBIN 11.8 G/DL (11.9-15.5); MCH 31.1 PG (29.0-34.0); MCHC 31.4 G/DL (30.0-36.0); MCV 99.2 FL (83-99); PLATELET COUNT 180 K/uL (156-360); RBC DIS.WIDTH-CV 15.5 % (11.8-14.6); RBC DIS.WIDTH-SD 56.4 % (39-53); RED BLOOD COUNT 3.79 M/uL (3.80-5.20); WHITE BLOOD COUNT 17.1 K/uL (4.1-10.2)
[2017-06-08 07:47] LABS: ALBUMIN 3.1 G/DL (3.2-4.8); CHLORIDE 96 MEQ/L (99-109); SODIUM 134 MEQ/L (136-147); TOTAL BILIRUBIN 0.6 MG/DL (0.0-1.0)
[2017-06-08 07:53] LABS: ALKALINE PHOSPHATASE 86 IU/L (3-129); ALT (GPT) 5 IU/L (3-49); AST (GOT) 11 IU/L (2-34); CREATININE 4.7 MG/DL (0.6-1.3); GFR ESTIMATE (CALCULATED) 9 mL/min/; GLUCOSE 92 mg/dL (70-99); TOTAL PROTEIN 5.2 G/DL (6.4-8.3); UREA NITROGEN (BUN) 32 mg/dL (9-23)
[2017-06-08 09:23] VITALS: BP 152/59
[2017-06-08 12:07] VITALS: BP 137/65
[2017-06-08 19:00] VITALS: BP 138/71
[2017-06-08 23:30] VITALS: BP 129/69
[2017-06-09 03:20] VITALS: BP 141/68
[2017-06-09 07:15] VITALS: BP 127/58
[2017-06-09 07:34] LABS: BASOPHIL (%) 0.6 % (0-1); BASOPHIL COUNT 0.1 K/uL (0-0.1); EOSINOPHIL (%) 1.9 % (0-5); EOSINOPHIL COUNT 0.3 K/uL (0-0.3); HEMATOCRIT 35.3 % (36.0-46.0); HEMOGLOBIN 11.1 G/DL (11.9-15.5); IMMATURE GRANULOCYTE (%) 0.5 % (0.0-0.7); LYMPHOCYTE (%) 11.9 % (15-42); LYMPHOCYTE COUNT 1.7 K/uL (1.0-2.8); MCH 31.4 PG (29.0-34.0); MCHC 31.4 G/DL (30.0-36.0); MONOCYTE (%) 8.1 % (3-12); MONOCYTE COUNT 1.1 K/uL (0-0.8); NEUTROPHIL COUNT 10.8 K/uL (1.8-6.4); PLATELET COUNT 141 K/uL (156-360); RBC DIS.WIDTH-CV 15.7 % (11.8-14.6); RBC DIS.WIDTH-SD 57.6 % (39-53); RED BLOOD COUNT 3.53 M/uL (3.80-5.20)
[2017-06-09 08:51] LABS: ALBUMIN 2.8 G/DL (3.2-4.8); ALKALINE PHOSPHATASE 81 IU/L (3-129); ALT (GPT) 6 IU/L (3-49); CHLORIDE 98 MEQ/L (99-109); GLUCOSE 82 mg/dL (70-99); POTASSIUM 3.9 MEQ/L (3.7-5.4); SODIUM 136 MEQ/L (136-147); TOTAL BILIRUBIN 0.6 MG/DL (0.0-1.0); UREA NITROGEN (BUN) 20 mg/dL (9-23)
[2017-06-09 08:52] LABS: AST (GOT) 17 IU/L (2-34); CREATININE 3.2 MG/DL (0.6-1.3); GFR ESTIMATE (CALCULATED) 15 mL/min/
[2017-06-09 11:25] VITALS: BP 124/55
[2017-06-09 11:37] LABS: HEPATITIS B SURFACE ANTIGEN Nonreactive
[2017-06-09 16:24] VITALS: BP 127/54
[2017-06-09 20:21] VITALS: BP 124/55
[2017-06-09 23:36] VITALS: BP 133/60
[2017-06-10 03:37] VITALS: BP 139/64
[2017-06-10 07:10] LABS: BASOPHIL (%) 0.6 % (0-1); BASOPHIL COUNT 0.1 K/uL (0-0.1); EOSINOPHIL (%) 2.8 % (0-5); EOSINOPHIL COUNT 0.3 K/uL (0-0.3); HEMATOCRIT 35.2 % (36.0-46.0); HEMOGLOBIN 11.3 G/DL (11.9-15.5); IMMATURE GRANULOCYTE (%) 0.6 % (0.0-0.7); LYMPHOCYTE COUNT 1.6 K/uL (1.0-2.8); MCH 32.3 PG (29.0-34.0); MCHC 32.1 G/DL (30.0-36.0); MCV 100.6 FL (83-99); MONOCYTE (%) 10.6 % (3-12); MONOCYTE COUNT 1.3 K/uL (0-0.8); NEUTROPHIL (%) 71.4 % (45-76); NEUTROPHIL COUNT 8.4 K/uL (1.8-6.4); PLATELET COUNT 109 K/uL (156-360); RBC DIS.WIDTH-CV 15.5 % (11.8-14.6); RBC DIS.WIDTH-SD 57.1 % (39-53); WHITE BLOOD COUNT 11.8 K/uL (4.1-10.2)
[2017-06-10 08:00] LABS: CHLORIDE 99 MEQ/L (99-109); GFR ESTIMATE (CALCULATED) 10 mL/min/; GLUCOSE 79 mg/dL (70-99); POTASSIUM 3.7 MEQ/L (3.7-5.4); SODIUM 139 MEQ/L (136-147); UREA NITROGEN (BUN) 28 mg/dL (9-23)
[2017-06-10 08:01] LABS: CREATININE 4.4 MG/DL (0.6-1.3)
[2017-06-10 08:33] VITALS: BP 124/57
[2017-06-10 10:32] LABS: C DIFF TOXIN POSITIVE (NEGATIVE)
[2017-06-10 15:44] VITALS: BP 146/63
[2017-06-10 19:30] VITALS: BP 126/74
[2017-06-10 23:35] VITALS: BP 126/70
[2017-06-11 04:20] VITALS: BP 124/68
[2017-06-11 05:41] LABS: BASOPHIL (%) 0.6 % (0-1); BASOPHIL COUNT 0.1 K/uL (0-0.1); EOSINOPHIL (%) 2.4 % (0-5); EOSINOPHIL COUNT 0.3 K/uL (0-0.3); HEMATOCRIT 33.4 % (36.0-46.0); HEMOGLOBIN 10.5 G/DL (11.9-15.5); IMMATURE GRANULOCYTE (%) 0.5 % (0.0-0.7); LYMPHOCYTE (%) 17.8 % (15-42); MCH 31.3 PG (29.0-34.0); MCHC 31.4 G/DL (30.0-36.0); MCV 99.4 FL (83-99); MONOCYTE (%) 16.7 % (3-12); MONOCYTE COUNT 1.9 K/uL (0-0.8); NEUTROPHIL COUNT 6.9 K/uL (1.8-6.4); PLATELET COUNT 118 K/uL (156-360); RBC DIS.WIDTH-CV 15.3 % (11.8-14.6); RBC DIS.WIDTH-SD 55.9 % (39-53); RED BLOOD COUNT 3.36 M/uL (3.80-5.20); WHITE BLOOD COUNT 11.2 K/uL (4.1-10.2)
[2017-06-11 06:03] LABS: CHLORIDE 98 MEQ/L (99-109); GFR ESTIMATE (CALCULATED) 16 mL/min/; GLUCOSE 83 mg/dL (70-99); POTASSIUM 3.4 MEQ/L (3.7-5.4); SODIUM 138 MEQ/L (136-147); UREA NITROGEN (BUN) 14 mg/dL (9-23)
[2017-06-11 07:13] VITALS: BP 118/52
[2017-06-11 15:34] VITALS: BP 136/86
[2017-06-11 17:47] LABS: HEMATOCRIT 36.7 % (36.0-46.0); HEMOGLOBIN 11.8 G/DL (11.9-15.5); MCV 100.8 FL (83-99)
[2017-06-12 00:04] VITALS: BP 109/82
[2017-06-12 06:44] LABS: BASOPHIL (%) 0.9 % (0-1); BASOPHIL COUNT 0.1 K/uL (0-0.1); EOSINOPHIL (%) 3.1 % (0-5); EOSINOPHIL COUNT 0.4 K/uL (0-0.3); HEMOGLOBIN 11.1 G/DL (11.9-15.5); IMMATURE GRANULOCYTE (%) 0.7 % (0.0-0.7); LYMPHOCYTE (%) 15.9 % (15-42); LYMPHOCYTE COUNT 1.9 K/uL (1.0-2.8); MCH 31.4 PG (29.0-34.0); MCHC 31.7 G/DL (30.0-36.0); MCV 99.2 FL (83-99); MONOCYTE (%) 17.4 % (3-12); MONOCYTE COUNT 2.1 K/uL (0-0.8); NEUTROPHIL COUNT 7.6 K/uL (1.8-6.4); PLATELET COUNT 113 K/uL (156-360); RBC DIS.WIDTH-CV 15.4 % (11.8-14.6); RBC DIS.WIDTH-SD 55.5 % (39-53); RED BLOOD COUNT 3.53 M/uL (3.80-5.20); WHITE BLOOD COUNT 12.2 K/uL (4.1-10.2)
[2017-06-12 07:53] LABS: CHLORIDE 99 MEQ/L (99-109); GLUCOSE 95 mg/dL (70-99); SODIUM 134 MEQ/L (136-147)
[2017-06-12 08:08] LABS: GFR ESTIMATE (CALCULATED) 11 mL/min/; POTASSIUM 4.7 MEQ/L (3.7-5.4); UREA NITROGEN (BUN) 23 mg/dL (9-23)
[2017-06-12 08:23] VITALS: BP 135/67
[2017-06-12 16:24] VITALS: BP 141/60
[2017-06-13 00:23] VITALS: BP 152/63
[2017-06-13 07:26] VITALS: BP 141/47
[2017-06-13] MEDS ORDERED: VANCOMYCIN HCL250 MG PO (13:18)
== END 2017-06-13 17:39 | disposition home health service (06) | DRG 371 ==
LOC: EME 17:36 → EDOF 23:09 → 2EAST 23:09 → ENRESERV 23:15 → EDOF 06-08 00:40 → 2EAST 06-08 00:43
PROVIDERS: Emergency Medicine; Internal Medicine; Internal Medicine Gastroenterology; Internal Medicine Nephrology; Student in an Organized Health Care Education/Training Program
PROC: 0W9G30Z Drainage of Peritoneal Cavity with Drainage Device, Percutaneous Approach (ICD-10-PCS; principal; 2017-06-07)
PROC: 5A1D70Z Performance of Urinary Filtration, Intermittent, Less than 6 Hours Per Day (ICD-10-PCS; 2017-06-08)
DX: K65.2 Spontaneous bacterial peritonitis (principal); A04.72 Enterocolitis due to Clostridium difficile, not specified as recurrent; R78.81 Bacteremia; E87.2 Acidosis; R18.8 Other ascites; I13.2 Hypertensive heart and chronic kidney disease with heart failure and with stage 5 chronic kidney disease, or end stage renal disease; I50.32 Chronic diastolic (congestive) heart failure; N18.6 End stage renal disease; J96.10 Chronic respiratory failure, unspecified whether with hypoxia or hypercapnia; J44.9 Chronic obstructive pulmonary disease, unspecified; K74.60 Unspecified cirrhosis of liver; E78.5 Hyperlipidemia, unspecified; E11.22 Type 2 diabetes mellitus with diabetic chronic kidney disease; K59.00 Constipation, unspecified; R74.8 Abnormal levels of other serum enzymes; K21.9 Gastro-esophageal reflux disease without esophagitis; I25.10 Atherosclerotic heart disease of native coronary artery without angina pectoris; F41.9 Anxiety disorder, unspecified; F32.9 Major depressive disorder, single episode, unspecified; F03.90 Unspecified dementia, unspecified severity, without behavioral disturbance, psychotic disturbance, mood disturbance, and anxiety; G47.33 Obstructive sleep apnea (adult) (pediatric); K42.9 Umbilical hernia without obstruction or gangrene; D64.9 Anemia, unspecified; E66.9 Obesity, unspecified; Z68.30 Body mass index [BMI] 30.0-30.9, adult; Z99.81 Dependence on supplemental oxygen; Z99.2 Dependence on renal dialysis; I25.2 Old myocardial infarction; Z95.1 Presence of aortocoronary bypass graft; Z95.2 Presence of prosthetic heart valve; Z86.718 Personal history of other venous thrombosis and embolism; Z86.73 Personal history of transient ischemic attack (TIA), and cerebral infarction without residual deficits; Z87.440 Personal history of urinary (tract) infections; Z79.82 Long term (current) use of aspirin; Z79.84 Long term (current) use of oral hypoglycemic drugs
CPT/HCPCS: 49083; 74021; 74176; 80048; 80053; 81003; 82140; 82948; 83036; 83605; 83690; 84484; 85014; 85018; 85025; 85027; 85610; 85730; 87040; 87070; 87075; 87076; 87205; 87340; 87493; 89051; 93005; 94640; 94640 76; 94760; 94799; 97530 GO; 97530 GP; 99202; 99281; 99285; J1644; J2020; J2405; J2543; J3010; J7050

== ENCOUNTER → 2017-06-23 | Outpatient (CLI) | payer OTHER ==
[~2017-06-23] MED LIST changes: +PROBIOTIC1 EAC7 PO; +VANCOMYCIN HCL250 MG PO
== END | disposition home or self-care (01) ==
LOC: RAD 06-11 13:30
PROC: 0WJG3ZZ Inspection of Peritoneal Cavity, Percutaneous Approach (ICD-10-PCS; principal; 2017-06-23)
DX: R18.8 Other ascites (principal); Z53.09 Procedure and treatment not carried out because of other contraindication
CPT/HCPCS: 76705

== ENCOUNTER 2017-06-30 13:15 | Emergency (ER) | payer OTHER ==
[~2017-06-30] VITALS: Ht 149.9 cm; Wt 54.5 kg
[2017-06-30 14:24] LABS: HEMOGLOBIN 11.7 G/DL (11.9-15.5); MCH 31.3 PG (29.0-34.0); MCHC 31.6 G/DL (30.0-36.0); MCV 98.9 FL (83-99); RBC DIS.WIDTH-CV 15.9 % (11.8-14.6); RBC DIS.WIDTH-SD 58.1 % (39-53); RED BLOOD COUNT 3.74 M/uL (3.80-5.20); WHITE BLOOD COUNT 9.3 K/uL (4.1-10.2)
[2017-06-30 14:29] LABS: PLATELET COUNT 215 K/uL (156-360)
[2017-06-30 14:35] LABS: CHLORIDE 100 mEq/L (99-109); POTASSIUM 4.9 mEq/L (3.7-5.4); SODIUM 138 mEq/L (136-147)
[2017-06-30 14:36] LABS: GLUCOSE 92 mg/dL (70-99)
[2017-06-30 14:40] LABS: CREATININE 3.5 mg/dL (0.6-1.3); GFR ESTIMATE (CALCULATED) 13 mL/min/
[2017-06-30 14:41] LABS: UREA NITROGEN (BUN) 19 mg/dL (9-23)
[2017-06-30 15:29] LABS: ALBUMIN 3.8 g/dL (3.2-4.8)
[2017-06-30 15:32] LABS: TOTAL PROTEIN 6.7 g/dL (6.4-8.3)
[2017-06-30 15:34] LABS: TOTAL BILIRUBIN 0.5 mg/dL (0.0-1.0)
[2017-06-30 15:35] LABS: ALKALINE PHOSPHATASE 165 IU/L (3-129)
[2017-06-30 15:37] LABS: AST (GOT) 24 IU/L (2-34); DIRECT BILIRUBIN 0.3 mg/dL (0.0-0.3)
[2017-06-30 15:38] LABS: ALT (GPT) 10 IU/L (3-49)
[2017-06-30 18:59] VITALS: BP 131/58
== END 2017-06-30 19:02 | disposition home or self-care (01) ==
LOC: EME 13:15
PROC: 0W9G3ZZ Drainage of Peritoneal Cavity, Percutaneous Approach (ICD-10-PCS; principal; 2017-06-30)
DX: R18.8 Other ascites (principal); I12.0 Hypertensive chronic kidney disease with stage 5 chronic kidney disease or end stage renal disease; N18.6 End stage renal disease; Z99.2 Dependence on renal dialysis; Z99.81 Dependence on supplemental oxygen; K74.60 Unspecified cirrhosis of liver; J44.9 Chronic obstructive pulmonary disease, unspecified; K21.9 Gastro-esophageal reflux disease without esophagitis; E78.5 Hyperlipidemia, unspecified; F03.90 Unspecified dementia, unspecified severity, without behavioral disturbance, psychotic disturbance, mood disturbance, and anxiety; F32.9 Major depressive disorder, single episode, unspecified; Z95.2 Presence of prosthetic heart valve; F41.9 Anxiety disorder, unspecified; I25.2 Old myocardial infarction; Z86.73 Personal history of transient ischemic attack (TIA), and cerebral infarction without residual deficits; Z85.828 Personal history of other malignant neoplasm of skin
CPT/HCPCS: 49083; 71046; 80048; 80076; 82948; 85027; 94640; 99281; 99284; J2405

== ENCOUNTER 2017-07-28 19:01 | Inpatient (IN) | payer OTHER ==
[~2017-07-28] VITALS: Ht 149.9 cm; Wt 56.3 kg
[2017-07-28 19:50] LABS: BASOPHIL (%) 0.5 % (0-1); BASOPHIL COUNT 0.1 K/uL (0-0.1); EOSINOPHIL (%) 1.2 % (0-5); EOSINOPHIL COUNT 0.2 K/uL (0-0.3); HEMATOCRIT 35.1 % (36.0-46.0); HEMOGLOBIN 11.8 G/DL (11.9-15.5); IMMATURE GRANULOCYTE (%) 0.8 % (0.0-0.7); LYMPHOCYTE (%) 4.3 % (15-42); LYMPHOCYTE COUNT 0.8 K/uL (1.0-2.8); MCH 31.9 PG (29.0-34.0); MCHC 33.6 G/DL (30.0-36.0); MONOCYTE (%) 7.5 % (3-12); MONOCYTE COUNT 1.4 K/uL (0-0.8); NEUTROPHIL (%) 85.7 % (45-76); NEUTROPHIL COUNT 16.2 K/uL (1.8-6.4); PLATELET COUNT 200 K/uL (156-360); RBC DIS.WIDTH-CV 14.9 % (11.8-14.6); RBC DIS.WIDTH-SD 51.8 % (39-53)
[2017-07-28 19:51] LABS: CHLORIDE 90 mEq/L (99-109); MCV 94.9 FL (83-99); SODIUM 136 mEq/L (136-147)
[2017-07-28 19:53] LABS: GLUCOSE 118 mg/dL (70-99)
[2017-07-28 19:56] LABS: CREATININE 4.1 mg/dL (0.6-1.3); GFR ESTIMATE (CALCULATED) 11 mL/min/
[2017-07-28 19:57] LABS: UREA NITROGEN (BUN) 31 mg/dL (9-23)
[2017-07-28 21:01] LABS: INTER. NORMALIZED RATIO 1.3
[2017-07-28 21:03] LABS: PTT 29.6 SEC (25-37)
[2017-07-28 21:04] LABS: ALBUMIN 3.6 g/dL (3.2-4.8)
[2017-07-28 21:05] LABS: MAGNESIUM 2.3 mg/dL (1.3-2.7)
[2017-07-28 21:07] LABS: TOTAL PROTEIN 6.2 g/dL (6.4-8.3)
[2017-07-28 21:08] LABS: TOTAL BILIRUBIN 0.7 mg/dL (0.0-1.0)
[2017-07-28 21:09] LABS: ALKALINE PHOSPHATASE 138 IU/L (3-129)
[2017-07-28 21:12] LABS: AST (GOT) 21 IU/L (2-34); DIRECT BILIRUBIN 0.4 mg/dL (0.0-0.3)
[2017-07-28 21:13] LABS: ALT (GPT) 15 IU/L (3-49); LIPASE 24 U/L (1.0-51.0)
[2017-07-28 21:15] LABS: TROP-I INTERPRETATION NEGATIVE; TROPONIN-I 0.05 ng/mL (0.0-0.30)
[2017-07-28 21:35] LABS: APPEARANCE CLOUDY ((CLEAR)); BILIRUBIN NEGATIVE; BLOOD SMALL; COLOR AMBER ((YELLOW)); GLUCOSE (STRIP) NEGATIVE; KETONES NEGATIVE; LEUKOCYTES LARGE; NITRITE NEGATIVE; PROTEIN (STRIP) >=500; SPECIFIC GRAVITY 1.016 (1.000-1.030); UROBILINOGEN 0.2 MG/DL (0.2-1.0)
[2017-07-28] MEDS ORDERED: RAYOS5 MG PO (21:44)
[2017-07-28 21:56] LABS: RED BLOOD CELLS 0-5 /HPF (0-5); WHITE BLOOD CELLS TNTC /HPF (0-5)
[2017-07-28 21:58] LABS: BACTERIA 2+ /HPF; EPITHELIAL CELLS 2+ /HPF; MUCUS TRACE /LPF; UCUL ADDED? YES
[2017-07-29 02:52] VITALS: BP 123/58
[2017-07-29 05:55] LABS: BASOPHIL (%) 0.4 % (0-1); BASOPHIL COUNT 0.1 K/uL (0-0.1); EOSINOPHIL (%) 1.3 % (0-5); EOSINOPHIL COUNT 0.2 K/uL (0-0.3); HEMATOCRIT 32.9 % (36.0-46.0); HEMOGLOBIN 10.8 G/DL (11.9-15.5); IMMATURE GRANULOCYTE (%) 0.8 % (0.0-0.7); LYMPHOCYTE (%) 4.6 % (15-42); LYMPHOCYTE COUNT 0.8 K/uL (1.0-2.8); MCH 31.7 PG (29.0-34.0); MCHC 32.8 G/DL (30.0-36.0); MCV 96.5 FL (83-99); MONOCYTE (%) 2.5 % (3-12); MONOCYTE COUNT 0.4 K/uL (0-0.8); NEUTROPHIL (%) 90.4 % (45-76); NEUTROPHIL COUNT 14.7 K/uL (1.8-6.4); PLATELET COUNT 168 K/uL (156-360); RBC DIS.WIDTH-CV 15.2 % (11.8-14.6); RED BLOOD COUNT 3.41 M/uL (3.80-5.20); WHITE BLOOD COUNT 16.3 K/uL (4.1-10.2)
[2017-07-29 06:15] LABS: CHLORIDE 92 MEQ/L (99-109); CREATININE 4.7 MG/DL (0.6-1.3); GFR ESTIMATE (CALCULATED) 9 mL/min/; GLUCOSE 173 mg/dL (70-99); POTASSIUM 4.1 MEQ/L (3.7-5.4); SODIUM 135 MEQ/L (136-147); UREA NITROGEN (BUN) 36 mg/dL (9-23)
[2017-07-29 07:50] VITALS: BP 118/58
[2017-07-29 11:28] VITALS: BP 126/63
[2017-07-29 20:00] VITALS: BP 105/61
[2017-07-29 23:07] VITALS: BP 126/57
[2017-07-30 04:00] VITALS: BP 150/58
[2017-07-30 07:25] VITALS: BP 127/59
[2017-07-30 12:04] VITALS: BP 124/58
[2017-07-30 15:49] VITALS: BP 111/54
[2017-07-30 20:16] VITALS: BP 131/60
[2017-07-31] VITALS (7 sets, daily range): BP systolic 129–152; BP diastolic 63–86
[2017-07-31 05:40] LABS: BASOPHIL (%) 0.5 % (0-1); BASOPHIL COUNT 0.1 K/uL (0-0.1); EOSINOPHIL (%) 3.2 % (0-5); EOSINOPHIL COUNT 0.4 K/uL (0-0.3); HEMATOCRIT 31.6 % (36.0-46.0); IMMATURE GRANULOCYTE (%) 1.2 % (0.0-0.7); LYMPHOCYTE (%) 16.3 % (15-42); LYMPHOCYTE COUNT 1.8 K/uL (1.0-2.8); MCHC 31.6 G/DL (30.0-36.0); MCV 97.8 FL (83-99); MONOCYTE (%) 10.6 % (3-12); MONOCYTE COUNT 1.2 K/uL (0-0.8); NEUTROPHIL (%) 68.2 % (45-76); NEUTROPHIL COUNT 7.6 K/uL (1.8-6.4); PLATELET COUNT 162 K/uL (156-360); RBC DIS.WIDTH-CV 15.1 % (11.8-14.6); RBC DIS.WIDTH-SD 54.7 % (39-53); RED BLOOD COUNT 3.23 M/uL (3.80-5.20); WHITE BLOOD COUNT 11.1 K/uL (4.1-10.2)
[2017-07-31 06:17] LABS: CHLORIDE 95 MEQ/L (99-109); CREATININE 4.2 MG/DL (0.6-1.3); GFR ESTIMATE (CALCULATED) 11 mL/min/; GLUCOSE 113 mg/dL (70-99); POTASSIUM 4.6 MEQ/L (3.7-5.4); SODIUM 135 MEQ/L (136-147); UREA NITROGEN (BUN) 35 mg/dL (9-23)
[2017-08-01 03:09] VITALS: BP 140/67
[2017-08-01 08:40] VITALS: BP 151/61
[2017-08-01 09:53] LABS: BASOPHIL (%) 0.6 % (0-1); BASOPHIL COUNT 0.1 K/uL (0-0.1); EOSINOPHIL (%) 2.6 % (0-5); EOSINOPHIL COUNT 0.3 K/uL (0-0.3); HEMOGLOBIN 10.5 G/DL (11.9-15.5); IMMATURE GRANULOCYTE (%) 0.8 % (0.0-0.7); LYMPHOCYTE (%) 15.6 % (15-42); LYMPHOCYTE COUNT 1.7 K/uL (1.0-2.8); MCH 31.3 PG (29.0-34.0); MCHC 31.8 G/DL (30.0-36.0); MCV 98.5 FL (83-99); MONOCYTE (%) 10.1 % (3-12); MONOCYTE COUNT 1.1 K/uL (0-0.8); NEUTROPHIL (%) 70.3 % (45-76); NEUTROPHIL COUNT 7.6 K/uL (1.8-6.4); PLATELET COUNT 165 K/uL (156-360); RBC DIS.WIDTH-SD 54.5 % (39-53); RED BLOOD COUNT 3.35 M/uL (3.80-5.20); WHITE BLOOD COUNT 10.9 K/uL (4.1-10.2)
[2017-08-01 10:34] LABS: CHLORIDE 97 MEQ/L (99-109); GFR ESTIMATE (CALCULATED) 15 mL/min/; GLUCOSE 131 mg/dL (70-99); POTASSIUM 4.1 MEQ/L (3.7-5.4); SODIUM 137 MEQ/L (136-147); UREA NITROGEN (BUN) 25 mg/dL (9-23)
[2017-08-01 10:36] LABS: CREATININE 3.2 MG/DL (0.6-1.3)
[2017-08-01 15:58] VITALS: BP 152/67
[2017-08-01 19:16] VITALS: BP 139/84
[2017-08-01 22:54] VITALS: BP 111/60
[2017-08-02 03:51] VITALS: BP 155/70
[2017-08-02 07:31] VITALS: BP 151/63
[2017-08-02 07:34] VITALS: BP 151/63
[2017-08-02 11:29] VITALS: BP 116/55
[2017-08-02 15:52] VITALS: BP 140/64
== END 2017-08-02 17:06 | disposition home health service (06) | DRG 871 ==
LOC: EME 19:01 → EDOF 07-29 01:25 → 5SOUTH 07-29 01:25 → ENRESERV 07-29 01:30 → 5SOUTH 07-29 02:25
PROVIDERS: Emergency Medicine; Hospitalist; Internal Medicine Nephrology; Physician Assistant
PROC: 5A1D70Z Performance of Urinary Filtration, Intermittent, Less than 6 Hours Per Day (ICD-10-PCS; principal; 2017-07-29)
DX: A41.9 Sepsis, unspecified organism (principal); J18.9 Pneumonia, unspecified organism; J44.0 Chronic obstructive pulmonary disease with (acute) lower respiratory infection; J44.1 Chronic obstructive pulmonary disease with (acute) exacerbation; K52.9 Noninfective gastroenteritis and colitis, unspecified; N39.0 Urinary tract infection, site not specified; I13.2 Hypertensive heart and chronic kidney disease with heart failure and with stage 5 chronic kidney disease, or end stage renal disease; I50.32 Chronic diastolic (congestive) heart failure; N18.6 End stage renal disease; E11.22 Type 2 diabetes mellitus with diabetic chronic kidney disease; B96.20 Unspecified Escherichia coli [E. coli] as the cause of diseases classified elsewhere; I25.10 Atherosclerotic heart disease of native coronary artery without angina pectoris; E78.5 Hyperlipidemia, unspecified; K21.9 Gastro-esophageal reflux disease without esophagitis; K74.60 Unspecified cirrhosis of liver; R18.8 Other ascites; G47.33 Obstructive sleep apnea (adult) (pediatric); F01.50 Vascular dementia, unspecified severity, without behavioral disturbance, psychotic disturbance, mood disturbance, and anxiety; D64.9 Anemia, unspecified; G89.29 Other chronic pain; M54.9 Dorsalgia, unspecified; F32.9 Major depressive disorder, single episode, unspecified; Z99.2 Dependence on renal dialysis; I25.2 Old myocardial infarction; Z95.1 Presence of aortocoronary bypass graft; Z95.2 Presence of prosthetic heart valve; Z86.718 Personal history of other venous thrombosis and embolism; Z86.73 Personal history of transient ischemic attack (TIA), and cerebral infarction without residual deficits; Z79.84 Long term (current) use of oral hypoglycemic drugs; Z79.82 Long term (current) use of aspirin
CPT/HCPCS: 71046; 74176; 80048; 80076; 80202; 81003; 82948; 83605; 83690; 83735; 84484; 85025; 85610; 85730; 87040; 87070; 87077; 87086 GA; 87186; 87205; 87449; 87493; 93005; 94640; 94640 76; 94799; 99202; 99281; 99285; A6214; J0456; J0692; J0780; J1644; J2405; J2543; J2930; J3010; J3370; J7050; J7512

== ENCOUNTER 2017-09-03 15:35 | Inpatient (IN) | payer OTHER ==
[~2017-09-03] VITALS: Ht 149.9 cm; Wt 57.1 kg
[~2017-09-03 15:35] MED LIST changes: -TYLENOL WITH C1 EACH PO
[2017-09-03 16:38] LABS: BASOPHIL (%) 0.5 % (0-1); BASOPHIL COUNT 0.1 K/uL (0-0.1); EOSINOPHIL (%) 1.1 % (0-5); EOSINOPHIL COUNT 0.1 K/uL (0-0.3); HEMATOCRIT 32.4 % (36.0-46.0); HEMOGLOBIN 10.6 G/DL (11.9-15.5); IMMATURE GRANULOCYTE (%) 0.7 % (0.0-0.7); LYMPHOCYTE (%) 6.4 % (15-42); LYMPHOCYTE COUNT 0.8 K/uL (1.0-2.8); MCHC 32.7 G/DL (30.0-36.0); MCV 100.9 FL (83-99); MONOCYTE (%) 6.4 % (3-12); MONOCYTE COUNT 0.8 K/uL (0-0.8); NEUTROPHIL (%) 84.9 % (45-76); NEUTROPHIL COUNT 10.4 K/uL (1.8-6.4); PLATELET COUNT 200 K/uL (156-360); RBC DIS.WIDTH-CV 16.1 % (11.8-14.6); RBC DIS.WIDTH-SD 57.4 % (39-53); RED BLOOD COUNT 3.21 M/uL (3.80-5.20); WHITE BLOOD COUNT 12.2 K/uL (4.1-10.2)
[2017-09-03 16:45] LABS: INTER. NORMALIZED RATIO 1.3
[2017-09-03 16:48] LABS: PTT 29.7 SEC (25-37)
[2017-09-03 16:50] LABS: ALBUMIN 3.7 g/dL (3.2-4.8); CHLORIDE 97 mEq/L (99-109); POTASSIUM 3.6 mEq/L (3.7-5.4); SODIUM 138 mEq/L (136-147)
[2017-09-03 16:51] LABS: MAGNESIUM 2.4 mg/dL (1.3-2.7)
[2017-09-03 16:53] LABS: GLUCOSE 131 mg/dL (70-99); TOTAL PROTEIN 6.2 g/dL (6.4-8.3)
[2017-09-03 16:54] LABS: TOTAL BILIRUBIN 0.5 mg/dL (0.0-1.0)
[2017-09-03 16:56] LABS: ALKALINE PHOSPHATASE 115 IU/L (3-129); CREATININE 3.6 mg/dL (0.6-1.3); GFR ESTIMATE (CALCULATED) 13 mL/min/
[2017-09-03 16:57] LABS: UREA NITROGEN (BUN) 14 mg/dL (9-23)
[2017-09-03 16:58] LABS: AST (GOT) 18 IU/L (2-34)
[2017-09-03 16:59] LABS: ALT (GPT) 12 IU/L (3-49)
[2017-09-03 17:00] LABS: TROP-I INTERPRETATION NEGATIVE; TROPONIN-I 0.06 ng/mL (0.0-0.30)
[2017-09-03 17:48] LABS: APPEARANCE TURBID ((CLEAR)); BILIRUBIN NEGATIVE; BLOOD LARGE; COLOR YELLOW ((YELLOW)); GLUCOSE (STRIP) NEGATIVE; KETONES NEGATIVE; LEUKOCYTES MODERATE; NITRITE NEGATIVE; PROTEIN (STRIP) 300; UROBILINOGEN 0.2 MG/DL (0.2-1.0)
[2017-09-03 17:51] LABS: RED BLOOD CELLS TNTC /HPF (0-5); WHITE BLOOD CELLS TNTC /HPF (0-5)
[2017-09-03 17:52] LABS: UCUL ADDED? YES
[2017-09-03] MEDS ORDERED: CHERATUSSIN AC473 ML PO (18:50)
[2017-09-03] MEDS ORDERED: NEOMYCIN-POLY-7.5 ML BOTH EYES (18:52)
[2017-09-04 05:38] LABS: HEMATOCRIT 33.9 % (36.0-46.0); HEMOGLOBIN 10.6 G/DL (11.9-15.5); MCHC 31.3 G/DL (30.0-36.0); MCV 102.4 FL (83-99); PLATELET COUNT 199 K/uL (156-360); RBC DIS.WIDTH-SD 59.4 % (39-53); RED BLOOD COUNT 3.31 M/uL (3.80-5.20); WHITE BLOOD COUNT 10.5 K/uL (4.1-10.2)
[2017-09-04 05:57] LABS: CHLORIDE 97 MEQ/L (99-109); CREATININE 4.2 MG/DL (0.6-1.3); GFR ESTIMATE (CALCULATED) 11 mL/min/; GLUCOSE 108 mg/dL (70-99); SODIUM 137 MEQ/L (136-147); UREA NITROGEN (BUN) 20 mg/dL (9-23)
[2017-09-04 07:38] VITALS: BP 126/57
[2017-09-04 12:10] VITALS: BP 119/56
[2017-09-04 19:47] VITALS: BP 144/63
[2017-09-05 00:13] VITALS: BP 138/76
[2017-09-05 03:34] VITALS: BP 131/76
[2017-09-05 05:18] LABS: BASOPHIL (%) 0.1 % (0-1); EOSINOPHIL (%) 0 % (0-5); HEMATOCRIT 34.1 % (36.0-46.0); HEMOGLOBIN 10.8 G/DL (11.9-15.5); IMMATURE GRANULOCYTE (%) 0.9 % (0.0-0.7); LYMPHOCYTE (%) 5.7 % (15-42); LYMPHOCYTE COUNT 0.8 K/uL (1.0-2.8); MCHC 31.7 G/DL (30.0-36.0); MCV 100.9 FL (83-99); MONOCYTE (%) 4.7 % (3-12); MONOCYTE COUNT 0.7 K/uL (0-0.8); NEUTROPHIL (%) 88.6 % (45-76); NEUTROPHIL COUNT 12.6 K/uL (1.8-6.4); PLATELET COUNT 207 K/uL (156-360); RBC DIS.WIDTH-SD 57.6 % (39-53); RED BLOOD COUNT 3.38 M/uL (3.80-5.20); WHITE BLOOD COUNT 14.2 K/uL (4.1-10.2)
[2017-09-05 05:50] LABS: CHLORIDE 95 MEQ/L (99-109); GFR ESTIMATE (CALCULATED) 16 mL/min/; POTASSIUM 4.2 MEQ/L (3.7-5.4); SODIUM 137 MEQ/L (136-147); UREA NITROGEN (BUN) 18 mg/dL (9-23)
[2017-09-05 05:58] LABS: GLUCOSE 186 mg/dL (70-99)
[2017-09-05 07:44] VITALS: BP 117/74
[2017-09-05 12:38] VITALS: BP 118/56
[2017-09-05 16:09] VITALS: BP 144/64
[2017-09-05 16:18] LABS: TROP-I INTERPRETATION NEGATIVE; TROPONIN-I 0.02 ng/mL (0.0-0.30)
[2017-09-05 19:59] VITALS: BP 122/91
[2017-09-06 00:05] VITALS: BP 146/66
[2017-09-06 06:07] LABS: HEMATOCRIT 34.5 % (36.0-46.0); HEMOGLOBIN 11.2 G/DL (11.9-15.5); MCH 32.6 PG (29.0-34.0); MCHC 32.5 G/DL (30.0-36.0); MCV 100.3 FL (83-99); PLATELET COUNT 205 K/uL (156-360); RBC DIS.WIDTH-CV 16.3 % (11.8-14.6); RBC DIS.WIDTH-SD 59.2 % (39-53); RED BLOOD COUNT 3.44 M/uL (3.80-5.20); WHITE BLOOD COUNT 15.4 K/uL (4.1-10.2)
[2017-09-06 06:41] LABS: CHLORIDE 95 MEQ/L (99-109); GFR ESTIMATE (CALCULATED) 11 mL/min/; POTASSIUM 4.2 MEQ/L (3.7-5.4); SODIUM 135 MEQ/L (136-147)
[2017-09-06 06:47] LABS: CREATININE 4.1 MG/DL (0.6-1.3); GLUCOSE 72 mg/dL (70-99); UREA NITROGEN (BUN) 33 mg/dL (9-23)
[2017-09-06 08:02] VITALS: BP 196/77
[2017-09-06 09:44] VITALS: BP 142/64
[2017-09-06 12:13] VITALS: BP 122/92
[2017-09-06 15:10] VITALS: BP 161/69
[2017-09-06 23:42] VITALS: BP 152/65
[2017-09-07 04:01] VITALS: BP 162/71
[2017-09-07 07:17] VITALS: BP 160/71
[2017-09-07 07:56] LABS: HEMATOCRIT 33.8 % (36.0-46.0); HEMOGLOBIN 11.2 G/DL (11.9-15.5); MCH 32.9 PG (29.0-34.0); MCHC 33.1 G/DL (30.0-36.0); MCV 99.4 FL (83-99); PLATELET COUNT 223 K/uL (156-360); RBC DIS.WIDTH-CV 16.1 % (11.8-14.6); RBC DIS.WIDTH-SD 58.1 % (39-53)
[2017-09-07 08:16] LABS: ALBUMIN 3.5 G/DL (3.2-4.8); CHLORIDE 95 MEQ/L (99-109); CREATININE 5.3 MG/DL (0.6-1.3); GFR ESTIMATE (CALCULATED) 8 mL/min/; GLUCOSE 156 mg/dL (70-99); PHOSPHORUS 4.9 mg/dL (2.5-4.9); POTASSIUM 3.9 MEQ/L (3.7-5.4); SODIUM 136 MEQ/L (136-147); UREA NITROGEN (BUN) 45 mg/dL (9-23)
[2017-09-07 12:02] VITALS: BP 154/68
[2017-09-07 12:16] LABS: HEPATITIS B SURFACE ANTIGEN Nonreactive
[2017-09-07 15:14] VITALS: BP 143/65
[2017-09-07 19:39] VITALS: BP 147/72
[2017-09-07 23:43] VITALS: BP 167/74
[2017-09-08 03:29] VITALS: BP 155/69
[2017-09-08 07:38] VITALS: BP 151/69
[2017-09-08 15:28] VITALS: BP 148/55
[2017-09-08 23:35] VITALS: BP 169/75
[2017-09-09 05:51] LABS: BASOPHIL (%) 0.1 % (0-1); EOSINOPHIL (%) 0 % (0-5); HEMATOCRIT 36.2 % (36.0-46.0); HEMOGLOBIN 11.5 G/DL (11.9-15.5); IMMATURE GRANULOCYTE (%) 1.7 % (0.0-0.7); LYMPHOCYTE (%) 3.6 % (15-42); LYMPHOCYTE COUNT 0.7 K/uL (1.0-2.8); MCH 32.2 PG (29.0-34.0); MCHC 31.8 G/DL (30.0-36.0); MCV 101.4 FL (83-99); MONOCYTE (%) 3.6 % (3-12); MONOCYTE COUNT 0.7 K/uL (0-0.8); NEUTROPHIL COUNT 18.5 K/uL (1.8-6.4); PLATELET COUNT 203 K/uL (156-360); RBC DIS.WIDTH-SD 60.4 % (39-53); RED BLOOD COUNT 3.57 M/uL (3.80-5.20); WHITE BLOOD COUNT 20.3 K/uL (4.1-10.2)
[2017-09-09 06:15] LABS: CHLORIDE 93 MEQ/L (99-109); CREATININE 4.5 MG/DL (0.6-1.3); GFR ESTIMATE (CALCULATED) 10 mL/min/; GLUCOSE 140 mg/dL (70-99); POTASSIUM 4.6 MEQ/L (3.7-5.4); SODIUM 135 MEQ/L (136-147); UREA NITROGEN (BUN) 40 mg/dL (9-23)
[2017-09-09 07:00] VITALS: BP 172/74
[2017-09-09 16:02] VITALS: BP 177/75
[2017-09-09 23:16] VITALS: BP 138/77
[2017-09-10 07:07] VITALS: BP 158/65
[2017-09-10 09:04] LABS: HEMATOCRIT 34.6 % (36.0-46.0); MCH 32.4 PG (29.0-34.0); MCHC 31.8 G/DL (30.0-36.0); MCV 102.1 FL (83-99); PLATELET COUNT 204 K/uL (156-360); RBC DIS.WIDTH-CV 16.2 % (11.8-14.6); RBC DIS.WIDTH-SD 60.2 % (39-53); RED BLOOD COUNT 3.39 M/uL (3.80-5.20); WHITE BLOOD COUNT 17.1 K/uL (4.1-10.2)
[2017-09-10 17:02] VITALS: BP 142/68
[2017-09-11 00:12] VITALS: BP 164/76
[2017-09-11 05:51] LABS: BASOPHIL (%) 0.2 % (0-1); EOSINOPHIL (%) 0 % (0-5); HEMATOCRIT 36.3 % (36.0-46.0); HEMOGLOBIN 11.6 G/DL (11.9-15.5); LYMPHOCYTE (%) 3.2 % (15-42); LYMPHOCYTE COUNT 0.6 K/uL (1.0-2.8); MCV 100.3 FL (83-99); MONOCYTE (%) 4.7 % (3-12); MONOCYTE COUNT 0.9 K/uL (0-0.8); NEUTROPHIL (%) 89.9 % (45-76); NEUTROPHIL COUNT 17.8 K/uL (1.8-6.4); PLATELET COUNT 237 K/uL (156-360); RBC DIS.WIDTH-SD 59.1 % (39-53); RED BLOOD COUNT 3.62 M/uL (3.80-5.20); WHITE BLOOD COUNT 19.7 K/uL (4.1-10.2)
[2017-09-11 06:19] LABS: CHLORIDE 93 MEQ/L (99-109); CREATININE 4.2 MG/DL (0.6-1.3); GFR ESTIMATE (CALCULATED) 11 mL/min/; GLUCOSE 185 mg/dL (70-99); POTASSIUM 4.6 MEQ/L (3.7-5.4); SODIUM 134 MEQ/L (136-147); UREA NITROGEN (BUN) 49 mg/dL (9-23)
[2017-09-11 11:57] VITALS: BP 164/72
[2017-09-11 15:50] VITALS: BP 178/74
[2017-09-12 00:13] VITALS: BP 177/74
[2017-09-12 07:03] VITALS: BP 160/73
[2017-09-12 08:05] VITALS: BP 140/58
[2017-09-12 09:15] LABS: HEMATOCRIT 34.3 % (36.0-46.0); HEMOGLOBIN 11.2 G/DL (11.9-15.5); MCH 32.6 PG (29.0-34.0); MCHC 32.7 G/DL (30.0-36.0); MCV 99.7 FL (83-99); PLATELET COUNT 198 K/uL (156-360); RBC DIS.WIDTH-SD 58.5 % (39-53); RED BLOOD COUNT 3.44 M/uL (3.80-5.20); WHITE BLOOD COUNT 20.2 K/uL (4.1-10.2)
[2017-09-12 09:42] LABS: TROP-I INTERPRETATION NEGATIVE; TROPONIN-I 0.06 ng/mL (0.0-0.30)
[2017-09-12] MEDS ORDERED: BENZONATATE100 MG PO (10:02)
[2017-09-12] MEDS ORDERED: FLORASTOR250 MG PO (10:02)
[2017-09-12] MEDS ORDERED: PREDNISONE20 MG PO (10:02)
[2017-09-12] MEDS ORDERED: AUGMENTIN500 MG PO (10:02)
== END 2017-09-12 13:00 | disposition home health service (06) | DRG 871 ==
LOC: EME 15:35 → 5SOUTH 19:56 → EDOF 19:56 → CANRESERV 20:17 → ENRESERV 20:17 → 5SOUTH 21:16
PROVIDERS: Emergency Medicine; Hospitalist; Internal Medicine Nephrology; Internal Medicine Pulmonary Disease; Physician Assistant Medical
PROC: 5A1D70Z Performance of Urinary Filtration, Intermittent, Less than 6 Hours Per Day (ICD-10-PCS; principal; 2017-09-04)
DX: A41.9 Sepsis, unspecified organism (principal); J44.0 Chronic obstructive pulmonary disease with (acute) lower respiratory infection; N18.6 End stage renal disease; I13.2 Hypertensive heart and chronic kidney disease with heart failure and with stage 5 chronic kidney disease, or end stage renal disease; N30.01 Acute cystitis with hematuria; I50.32 Chronic diastolic (congestive) heart failure; R18.8 Other ascites; J44.1 Chronic obstructive pulmonary disease with (acute) exacerbation; T38.0X5A Adverse effect of glucocorticoids and synthetic analogues, initial encounter; D63.1 Anemia in chronic kidney disease; I08.1 Rheumatic disorders of both mitral and tricuspid valves; M54.9 Dorsalgia, unspecified; S30.1XXA Contusion of abdominal wall, initial encounter; G89.29 Other chronic pain; E11.22 Type 2 diabetes mellitus with diabetic chronic kidney disease; E78.5 Hyperlipidemia, unspecified; K74.60 Unspecified cirrhosis of liver; I25.10 Atherosclerotic heart disease of native coronary artery without angina pectoris; K59.00 Constipation, unspecified; K57.30 Diverticulosis of large intestine without perforation or abscess without bleeding; K80.20 Calculus of gallbladder without cholecystitis without obstruction; F03.90 Unspecified dementia, unspecified severity, without behavioral disturbance, psychotic disturbance, mood disturbance, and anxiety; J20.8 Acute bronchitis due to other specified organisms; Z86.718 Personal history of other venous thrombosis and embolism; Z95.2 Presence of prosthetic heart valve; Z95.1 Presence of aortocoronary bypass graft; Z99.2 Dependence on renal dialysis; G47.33 Obstructive sleep apnea (adult) (pediatric); Z87.440 Personal history of urinary (tract) infections; I25.2 Old myocardial infarction; Z90.710 Acquired absence of both cervix and uterus; Z90.49 Acquired absence of other specified parts of digestive tract; Z79.4 Long term (current) use of insulin
CPT/HCPCS: 71045; 71046; 71250; 74176; 74230; 80048; 80053; 80069; 81003; 82948; 83605; 83735; 83880; 84484; 85025; 85027; 85610; 85730; 87040; 87070; 87086; 87205; 87340; 92610 GN; 92611 GN; 93005; 94640; 94640 76; 94799; 97530 GO; 99202; 99281; 99285; J0456; J0696; J1644; J1815; J2543; J2920; J2930; J3370; J7512

== ENCOUNTER 2017-09-19 22:36 | Inpatient (IN) | payer OTHER ==
[~2017-09-19] VITALS: Ht 121.9 cm; Wt 62.5 kg
[~2017-09-19 22:36] MED LIST changes: +BENZONATATE100 MG PO; +CHERATUSSIN AC473 ML PO; +FLORASTOR250 MG PO; +NEOMYCIN-POLY-7.5 ML BOTH EYES
[2017-09-19 23:20] LABS: APPEARANCE TURBID ((CLEAR)); BILIRUBIN NEGATIVE; BLOOD MODERATE; COLOR AMBER ((YELLOW)); GLUCOSE (STRIP) NEGATIVE; KETONES NEGATIVE; LEUKOCYTES LARGE; NITRITE NEGATIVE; PROTEIN (STRIP) >=500
[2017-09-19 23:29] LABS: BASOPHIL (%) 0.3 % (0-1); EOSINOPHIL (%) 0.3 % (0-5); EOSINOPHIL COUNT 0.1 K/uL (0-0.3); HEMATOCRIT 33.5 % (36.0-46.0); HEMOGLOBIN 10.9 G/DL (11.9-15.5); IMMATURE GRANULOCYTE (%) 4.6 % (0.0-0.7); LYMPHOCYTE (%) 5.6 % (15-42); LYMPHOCYTE COUNT 0.9 K/uL (1.0-2.8); MCH 33.4 PG (29.0-34.0); MCHC 32.5 G/DL (30.0-36.0); MCV 102.8 FL (83-99); MONOCYTE (%) 7.2 % (3-12); MONOCYTE COUNT 1.2 K/uL (0-0.8); NEUTROPHIL COUNT 13.1 K/uL (1.8-6.4); NRBC (%) 0.3 /100 WBC (0-0); PLATELET COUNT 169 K/uL (156-360); RBC DIS.WIDTH-SD 59.4 % (39-53); RED BLOOD COUNT 3.26 M/uL (3.80-5.20); WHITE BLOOD COUNT 15.9 K/uL (4.1-10.2)
[2017-09-19 23:41] LABS: CHLORIDE 99 mEq/L (99-109); POTASSIUM 3.9 mEq/L (3.7-5.4); SODIUM 139 mEq/L (136-147)
[2017-09-19 23:43] LABS: GLUCOSE 202 mg/dL (70-99)
[2017-09-19 23:46] LABS: GFR ESTIMATE (CALCULATED) 11 mL/min/
[2017-09-19 23:47] LABS: RED BLOOD CELLS TNTC /HPF (0-5); UCUL ADDED? YES; WHITE BLOOD CELLS TNTC /HPF (0-5)
[2017-09-19 23:47] LABS: UREA NITROGEN (BUN) 36 mg/dL (9-23)
[2017-09-19 23:51] LABS: TROP-I INTERPRETATION NEGATIVE; TROPONIN-I 0.06 ng/mL (0.0-0.30)
[2017-09-20 00:19] LABS: PTT 18.4 SEC (25-37)
[2017-09-20 01:36] LABS: HEMATOCRIT 34.3 % (36.0-46.0); HEMOGLOBIN 11.2 G/DL (11.9-15.5); MCH 33.6 PG (29.0-34.0); MCHC 32.7 G/DL (30.0-36.0); NRBC (%) 0.1 /100 WBC (0-0); PLATELET COUNT 174 K/uL (156-360); RBC DIS.WIDTH-SD 60.1 % (39-53); RED BLOOD COUNT 3.33 M/uL (3.80-5.20); WHITE BLOOD COUNT 29.8 K/uL (4.1-10.2)
[2017-09-20] MEDS ORDERED: TYLENOL WITH C1 EACH PO (02:04)
[2017-09-20] MEDS ORDERED: TRADJENTA5 MG PO (02:07)
[2017-09-20 02:40] VITALS: BP 171/74
[2017-09-20 07:03] VITALS: BP 147/65
[2017-09-20 10:59] VITALS: BP 146/61
[2017-09-20 15:54] VITALS: BP 148/65
[2017-09-20 20:00] VITALS: BP 133/63
[2017-09-21 02:11] VITALS: BP 151/68
[2017-09-21 05:40] VITALS: BP 133/61
[2017-09-21 07:51] VITALS: BP 151/66
[2017-09-21 09:25] LABS: HEMATOCRIT 33.8 % (36.0-46.0); HEMOGLOBIN 10.6 G/DL (11.9-15.5); MCH 32.6 PG (29.0-34.0); MCHC 31.4 G/DL (30.0-36.0); NRBC (%) 0.2 /100 WBC (0-0); PLATELET COUNT 158 K/uL (156-360); RBC DIS.WIDTH-CV 16.9 % (11.8-14.6); RBC DIS.WIDTH-SD 62.3 % (39-53); RED BLOOD COUNT 3.25 M/uL (3.80-5.20); WHITE BLOOD COUNT 19.2 K/uL (4.1-10.2)
[2017-09-21 09:40] LABS: CHLORIDE 99 MEQ/L (99-109); POTASSIUM 4.3 MEQ/L (3.7-5.4); SODIUM 138 MEQ/L (136-147)
[2017-09-21 10:11] LABS: ALBUMIN 3.3 G/DL (3.2-4.8)
[2017-09-21 10:17] LABS: ALKALINE PHOSPHATASE 71 IU/L (3-129); ALT (GPT) 12 IU/L (3-49); AST (GOT) 10 IU/L (2-34); TOTAL PROTEIN 5.7 G/DL (6.4-8.3); UREA NITROGEN (BUN) 47 mg/dL (9-23)
[2017-09-21 10:23] LABS: GFR ESTIMATE (CALCULATED) 9 mL/min/; GLUCOSE 95 mg/dL (70-99); TOTAL BILIRUBIN 0.4 MG/DL (0.0-1.0)
[2017-09-21 12:08] LABS: HEMOGLOBIN A1c (GLYCOHEMOGLOB) 5.6 % (Below 5.7)
[2017-09-21 15:11] LABS: HEMATOCRIT 32.8 % (36.0-46.0); HEMOGLOBIN 10.5 G/DL (11.9-15.5); MCV 104.5 FL (83-99)
[2017-09-21 16:37] VITALS: BP 128/92
[2017-09-21 17:08] LABS: INTER. NORMALIZED RATIO 1.3
[2017-09-21 19:40] VITALS: BP 151/65
[2017-09-21 23:15] VITALS: BP 156/72
[2017-09-22 04:00] VITALS: BP 144/65
[2017-09-22 06:15] LABS: HEMATOCRIT 28.8 % (36.0-46.0); HEMOGLOBIN 9.2 G/DL (11.9-15.5); MCH 33.2 PG (29.0-34.0); MCHC 31.9 G/DL (30.0-36.0); PLATELET COUNT 116 K/uL (156-360); RBC DIS.WIDTH-CV 16.6 % (11.8-14.6); RBC DIS.WIDTH-SD 61.4 % (39-53); RED BLOOD COUNT 2.77 M/uL (3.80-5.20); WHITE BLOOD COUNT 14.2 K/uL (4.1-10.2)
[2017-09-22 06:42] LABS: CHLORIDE 98 MEQ/L (99-109); GFR ESTIMATE (CALCULATED) 12 mL/min/; GLUCOSE 117 mg/dL (70-99); POTASSIUM 4.3 MEQ/L (3.7-5.4); SODIUM 138 MEQ/L (136-147); UREA NITROGEN (BUN) 30 mg/dL (9-23)
[2017-09-22 06:44] LABS: CREATININE 3.8 MG/DL (0.6-1.3)
[2017-09-22 06:57] LABS: INTER. NORMALIZED RATIO 1.4
[2017-09-22 07:16] VITALS: BP 145/64
[2017-09-22 10:51] VITALS: BP 130/62
[2017-09-22 23:19] VITALS: BP 130/63
[2017-09-23 08:36] LABS: BASOPHIL (%) 0.1 % (0-1); EOSINOPHIL (%) 1.5 % (0-5); EOSINOPHIL COUNT 0.2 K/uL (0-0.3); HEMATOCRIT 29.6 % (36.0-46.0); HEMOGLOBIN 9.6 G/DL (11.9-15.5); IMMATURE GRANULOCYTE (%) 1.2 % (0.0-0.7); LYMPHOCYTE (%) 6.9 % (15-42); LYMPHOCYTE COUNT 1.1 K/uL (1.0-2.8); MCH 33.2 PG (29.0-34.0); MCHC 32.4 G/DL (30.0-36.0); MCV 102.4 FL (83-99); MONOCYTE (%) 5.3 % (3-12); MONOCYTE COUNT 0.8 K/uL (0-0.8); NEUTROPHIL COUNT 13.4 K/uL (1.8-6.4); NRBC (%) 0.1 /100 WBC (0-0); PLATELET COUNT 111 K/uL (156-360); RBC DIS.WIDTH-CV 16.8 % (11.8-14.6); RBC DIS.WIDTH-SD 60.9 % (39-53); RED BLOOD COUNT 2.89 M/uL (3.80-5.20); WHITE BLOOD COUNT 15.8 K/uL (4.1-10.2)
[2017-09-23 08:55] LABS: CHLORIDE 96 MEQ/L (99-109); POTASSIUM 4.3 MEQ/L (3.7-5.4); SODIUM 136 MEQ/L (136-147)
[2017-09-23 09:03] LABS: GFR ESTIMATE (CALCULATED) 9 mL/min/; GLUCOSE 141 mg/dL (70-99); UREA NITROGEN (BUN) 44 mg/dL (9-23)
[2017-09-23 09:04] LABS: CREATININE 5.1 MG/DL (0.6-1.3)
[2017-09-23 12:01] VITALS: BP 124/60
[2017-09-23 16:27] VITALS: BP 132/61
[2017-09-23 23:40] VITALS: BP 146/67
[2017-09-24 03:58] VITALS: BP 111/75
[2017-09-24 06:25] LABS: INTER. NORMALIZED RATIO 1.9
[2017-09-24 06:39] LABS: BASOPHIL (%) 0.2 % (0-1); EOSINOPHIL (%) 1.8 % (0-5); EOSINOPHIL COUNT 0.2 K/uL (0-0.3); HEMATOCRIT 29.9 % (36.0-46.0); HEMOGLOBIN 9.6 G/DL (11.9-15.5); IMMATURE GRANULOCYTE (%) 1.3 % (0.0-0.7); LYMPHOCYTE (%) 8.5 % (15-42); LYMPHOCYTE COUNT 1.1 K/uL (1.0-2.8); MCH 32.9 PG (29.0-34.0); MCHC 32.1 G/DL (30.0-36.0); MCV 102.4 FL (83-99); MONOCYTE (%) 6.7 % (3-12); MONOCYTE COUNT 0.9 K/uL (0-0.8); NEUTROPHIL (%) 81.5 % (45-76); NRBC (%) 0.1 /100 WBC (0-0); RBC DIS.WIDTH-CV 16.5 % (11.8-14.6); RBC DIS.WIDTH-SD 60.3 % (39-53); RED BLOOD COUNT 2.92 M/uL (3.80-5.20); WHITE BLOOD COUNT 13.5 K/uL (4.1-10.2)
[2017-09-24 06:47] LABS: PLAT.SUFFICIENCY DECREASED; PLATELET COUNT 92 K/uL (156-360)
[2017-09-24 08:05] VITALS: BP 153/69
[2017-09-24] MEDS ORDERED: TEMAZEPAM15 MG PO (09:49)
[2017-09-24] MEDS ORDERED: HYDROCODON-ACE1 EAC7 PO (09:49)
[2017-09-24] MEDS ORDERED: COUMADIN1 MG PO (09:49)
[2017-09-24] MEDS ORDERED: TRAMADOL HCL50 MG PO (09:49)
[2017-09-24] MEDS ORDERED: LORAZEPAM0.5 MG PO (09:49)
[2017-09-24] MEDS ORDERED: TYLENOL WITH C1 EACH PO (09:49)
== END 2017-09-24 17:49 | DRG 480 ==
LOC: EME → EDBD 22:36 → EME 22:36 → 3EAST 09-20 00:59 → EDOF 09-20 00:59 → ENRESERV 09-20 01:00 → 3EAST 09-20 02:34
PROVIDERS: Emergency Medicine; Hospitalist; Internal Medicine; Internal Medicine Nephrology; Orthopaedic Surgery; Student in an Organized Health Care Education/Training Program
PROC: 0QS734Z Reposition Left Upper Femur with Internal Fixation Device, Percutaneous Approach (ICD-10-PCS; principal; 2017-09-21)
PROC: 5A1D70Z Performance of Urinary Filtration, Intermittent, Less than 6 Hours Per Day (ICD-10-PCS; 2017-09-21)
DX: S72.142A Displaced intertrochanteric fracture of left femur, initial encounter for closed fracture (principal); S00.93XA Contusion of unspecified part of head, initial encounter; S51.012A Laceration without foreign body of left elbow, initial encounter; W18.30XA Fall on same level, unspecified, initial encounter; Y92.009 Unspecified place in unspecified non-institutional (private) residence as the place of occurrence of the external cause; D69.59 Other secondary thrombocytopenia; I13.2 Hypertensive heart and chronic kidney disease with heart failure and with stage 5 chronic kidney disease, or end stage renal disease; I50.32 Chronic diastolic (congestive) heart failure; E11.22 Type 2 diabetes mellitus with diabetic chronic kidney disease; N18.6 End stage renal disease; E78.5 Hyperlipidemia, unspecified; F41.9 Anxiety disorder, unspecified; F32.9 Major depressive disorder, single episode, unspecified; M10.9 Gout, unspecified; J44.9 Chronic obstructive pulmonary disease, unspecified; F03.90 Unspecified dementia, unspecified severity, without behavioral disturbance, psychotic disturbance, mood disturbance, and anxiety; G43.909 Migraine, unspecified, not intractable, without status migrainosus; G47.33 Obstructive sleep apnea (adult) (pediatric); G89.29 Other chronic pain; M54.9 Dorsalgia, unspecified; I08.1 Rheumatic disorders of both mitral and tricuspid valves; D63.1 Anemia in chronic kidney disease; I25.10 Atherosclerotic heart disease of native coronary artery without angina pectoris; G47.00 Insomnia, unspecified; R18.8 Other ascites; K74.60 Unspecified cirrhosis of liver; E66.9 Obesity, unspecified; K21.9 Gastro-esophageal reflux disease without esophagitis; Z99.81 Dependence on supplemental oxygen; I25.2 Old myocardial infarction; Z99.2 Dependence on renal dialysis; Z86.73 Personal history of transient ischemic attack (TIA), and cerebral infarction without residual deficits; Z95.1 Presence of aortocoronary bypass graft; Z79.82 Long term (current) use of aspirin; Z86.718 Personal history of other venous thrombosis and embolism; Z95.3 Presence of xenogenic heart valve; Z68.26 Body mass index [BMI] 26.0-26.9, adult
CPT/HCPCS: 36415; 70450; 71045; 72125; 73502; 73700; 76000; 80048; 80053; 81003; 82948; 83036; 84484; 85014; 85018; 85025; 85025 91; 85027; 85610; 85730; 86850; 86900; 86901; 87086; 93005; 94640; 94760; 94799; 97530 GO; 99281; 99285; A6214; C1713; J0690; J0696; J1815; J2270; J2405; J2795; J3010; J7030; J7512

== ENCOUNTER 2017-10-14 17:09 | Emergency (ER) | payer OTHER ==
[~2017-10-14] VITALS: Ht 149.9 cm; Wt 56.9 kg
[~2017-10-14 17:09] MED LIST changes: +COUMADIN1 MG PO; +TYLENOL WITH C1 EACH PO
[2017-10-14 18:57] LABS: BASOPHIL (%) 0.5 % (0-1); BASOPHIL COUNT 0.1 K/uL (0-0.1); EOSINOPHIL (%) 0.3 % (0-5); HEMATOCRIT 28.8 % (36.0-46.0); HEMOGLOBIN 9.1 G/DL (11.9-15.5); IMMATURE GRANULOCYTE (%) 4.3 % (0.0-0.7); LYMPHOCYTE (%) 19.8 % (15-42); LYMPHOCYTE COUNT 2.3 K/uL (1.0-2.8); MCH 31.8 PG (29.0-34.0); MCHC 31.6 G/DL (30.0-36.0); MONOCYTE (%) 10.5 % (3-12); MONOCYTE COUNT 1.2 K/uL (0-0.8); NEUTROPHIL (%) 64.6 % (45-76); NEUTROPHIL COUNT 7.4 K/uL (1.8-6.4); RBC DIS.WIDTH-SD 57.7 % (39-53); RED BLOOD COUNT 2.86 M/uL (3.80-5.20); WHITE BLOOD COUNT 11.5 K/uL (4.1-10.2)
[2017-10-14 18:59] LABS: MCV 100.7 FL (83-99); PLATELET COUNT 255 K/uL (156-360)
[2017-10-14 19:15] LABS: INTER. NORMALIZED RATIO 1.3
[2017-10-14 19:16] LABS: CHLORIDE 96 mEq/L (99-109); POTASSIUM 3.9 mEq/L (3.7-5.4); SODIUM 138 mEq/L (136-147)
[2017-10-14 19:18] LABS: GLUCOSE 81 mg/dL (70-99)
[2017-10-14 19:21] LABS: PTT 29.9 SEC (25-37)
[2017-10-14 19:22] LABS: CREATININE 2.2 mg/dL (0.6-1.3); GFR ESTIMATE (CALCULATED) 22 mL/min/; UREA NITROGEN (BUN) 10 mg/dL (9-23)
[2017-10-14 19:46] LABS: TOTAL PROTEIN 5.6 g/dL (6.4-8.3)
[2017-10-14 19:48] LABS: TOTAL BILIRUBIN 0.5 mg/dL (0.0-1.0)
[2017-10-14 19:49] LABS: ALKALINE PHOSPHATASE 124 IU/L (3-129)
[2017-10-14 19:52] LABS: ALT (GPT) 7 IU/L (3-49); AST (GOT) 14 IU/L (2-34); DIRECT BILIRUBIN 0.2 mg/dL (0.0-0.3)
[2017-10-14 19:53] LABS: LIPASE 17 U/L (1.0-51.0)
[2017-10-14 19:56] LABS: APPEARANCE TURBID ((CLEAR)); BILIRUBIN NEGATIVE; BLOOD MODERATE; COLOR AMBER ((YELLOW)); GLUCOSE (STRIP) NEGATIVE; KETONES NEGATIVE; LEUKOCYTES SMALL; NITRITE NEGATIVE; PROTEIN (STRIP) 100; SPECIFIC GRAVITY 1.019 (1.000-1.030); UROBILINOGEN 0.2 MG/DL (0.2-1.0)
[2017-10-14 20:10] LABS: EPITHELIAL CELLS 1+ /HPF; MUCUS NONE SEEN /LPF; RED BLOOD CELLS 0-5 /HPF (0-5); UCUL ADDED? YES; WHITE BLOOD CELLS TNTC /HPF (0-5)
[2017-10-14 20:11] LABS: BACTERIA 2+ /HPF
[2017-10-14] MEDS ORDERED: KEFLEX500 MG PO (21:19)
[2017-10-14 23:15] VITALS: BP 123/47
== END 2017-10-14 23:33 ==
LOC: EME 17:09
PROVIDERS: Emergency Medicine
DX: N39.0 Urinary tract infection, site not specified (principal); R53.1 Weakness; I13.2 Hypertensive heart and chronic kidney disease with heart failure and with stage 5 chronic kidney disease, or end stage renal disease; I50.9 Heart failure, unspecified; N18.6 End stage renal disease; Z99.2 Dependence on renal dialysis; E11.22 Type 2 diabetes mellitus with diabetic chronic kidney disease; J44.9 Chronic obstructive pulmonary disease, unspecified; E78.5 Hyperlipidemia, unspecified; K21.9 Gastro-esophageal reflux disease without esophagitis; F03.90 Unspecified dementia, unspecified severity, without behavioral disturbance, psychotic disturbance, mood disturbance, and anxiety; G47.30 Sleep apnea, unspecified; F41.9 Anxiety disorder, unspecified; F32.9 Major depressive disorder, single episode, unspecified; I25.2 Old myocardial infarction; Z95.1 Presence of aortocoronary bypass graft; Z86.73 Personal history of transient ischemic attack (TIA), and cerebral infarction without residual deficits; Z85.828 Personal history of other malignant neoplasm of skin; Z90.49 Acquired absence of other specified parts of digestive tract; Z88.1 Allergy status to other antibiotic agents
CPT/HCPCS: 74176; 80048; 80076; 81003; 83690; 85025; 85610; 85730; 87086 GA; 87106; 99281; 99285; J0696

== ENCOUNTER 2017-10-21 13:07 | Emergency (ER) | payer OTHER ==
[~2017-10-21] VITALS: Ht 149.9 cm; Wt 55.0 kg
[2017-10-21 14:19] LABS: BASOPHIL (%) 0.3 % (0-1); BASOPHIL COUNT 0.1 K/uL (0-0.1); EOSINOPHIL (%) 0.2 % (0-5); HEMATOCRIT 29.4 % (36.0-46.0); HEMOGLOBIN 9.3 G/DL (11.9-15.5); IMMATURE GRANULOCYTE (%) 2.6 % (0.0-0.7); LYMPHOCYTE (%) 5.1 % (15-42); MCH 32.1 PG (29.0-34.0); MCHC 31.6 G/DL (30.0-36.0); MCV 101.4 FL (83-99); MONOCYTE (%) 4.2 % (3-12); MONOCYTE COUNT 0.8 K/uL (0-0.8); NEUTROPHIL (%) 87.6 % (45-76); NEUTROPHIL COUNT 16.9 K/uL (1.8-6.4); PLATELET COUNT 216 K/uL (156-360); RBC DIS.WIDTH-CV 17.1 % (11.8-14.6); RBC DIS.WIDTH-SD 62.6 % (39-53); WHITE BLOOD COUNT 19.3 K/uL (4.1-10.2)
[2017-10-21 14:32] LABS: CHLORIDE 91 mEq/L (99-109); POTASSIUM 4.6 mEq/L (3.7-5.4)
[2017-10-21 14:34] LABS: GLUCOSE 139 mg/dL (70-99); SODIUM 131 mEq/L (136-147)
[2017-10-21 14:38] LABS: GFR ESTIMATE (CALCULATED) 11 mL/min/
[2017-10-21 14:54] LABS: CREATININE 4.1 mg/dL (0.6-1.3); UREA NITROGEN (BUN) 46 mg/dL (9-23)
[2017-10-21 14:55] LABS: INTER. NORMALIZED RATIO 1.3
[2017-10-21 14:57] LABS: PTT 29.7 SEC (25-37)
[2017-10-21 20:06] LABS: BASOPHIL (%) 0.4 % (0-1); BASOPHIL COUNT 0.1 K/uL (0-0.1); EOSINOPHIL (%) 0.3 % (0-5); HEMATOCRIT 29.6 % (36.0-46.0); HEMOGLOBIN 9.5 G/DL (11.9-15.5); IMMATURE GRANULOCYTE (%) 2.3 % (0.0-0.7); LYMPHOCYTE (%) 14.7 % (15-42); LYMPHOCYTE COUNT 2.3 K/uL (1.0-2.8); MCH 32.1 PG (29.0-34.0); MCHC 32.1 G/DL (30.0-36.0); MONOCYTE (%) 7.3 % (3-12); MONOCYTE COUNT 1.2 K/uL (0-0.8); NEUTROPHIL COUNT 11.9 K/uL (1.8-6.4); PLATELET COUNT 214 K/uL (156-360); RBC DIS.WIDTH-CV 16.8 % (11.8-14.6); RED BLOOD COUNT 2.96 M/uL (3.80-5.20); WHITE BLOOD COUNT 15.8 K/uL (4.1-10.2)
[2017-10-21 20:27] LABS: CHLORIDE 97 mEq/L (99-109); POTASSIUM 3.8 mEq/L (3.7-5.4)
[2017-10-21 20:38] LABS: CREATININE 1.6 mg/dL (0.6-1.3); GFR ESTIMATE (CALCULATED) 32 mL/min/; GLUCOSE 88 mg/dL (70-99); SODIUM 138 mEq/L (136-147); UREA NITROGEN (BUN) 13 mg/dL (9-23)
[2017-10-21 21:41] VITALS: BP 135/57
== END 2017-10-21 21:43 ==
LOC: EME 13:07
PROVIDERS: Emergency Medicine
PROC: 5A1D70Z Performance of Urinary Filtration, Intermittent, Less than 6 Hours Per Day (ICD-10-PCS; principal; 2017-10-21)
DX: M79.605 Pain in left leg (principal); E11.22 Type 2 diabetes mellitus with diabetic chronic kidney disease; I13.2 Hypertensive heart and chronic kidney disease with heart failure and with stage 5 chronic kidney disease, or end stage renal disease; I50.9 Heart failure, unspecified; N18.6 End stage renal disease; Z99.2 Dependence on renal dialysis; Z49.31 Encounter for adequacy testing for hemodialysis; E78.5 Hyperlipidemia, unspecified; F03.90 Unspecified dementia, unspecified severity, without behavioral disturbance, psychotic disturbance, mood disturbance, and anxiety; F32.9 Major depressive disorder, single episode, unspecified; F41.9 Anxiety disorder, unspecified; G47.30 Sleep apnea, unspecified; I25.2 Old myocardial infarction; J43.9 Emphysema, unspecified; J45.909 Unspecified asthma, uncomplicated; K21.9 Gastro-esophageal reflux disease without esophagitis; Z86.73 Personal history of transient ischemic attack (TIA), and cerebral infarction without residual deficits; Z95.1 Presence of aortocoronary bypass graft
CPT/HCPCS: 71045; 73590; 80048; 80048 91; 81003; 83605; 85025; 85025 91; 85610; 85730; 87040; 93005; 93971; 99281; 99285